=== PATIENT | male | born 1960 | race Caucasian/White ===

== ENCOUNTER → 2016-05-16 | Outpatient (CLI) | payer OTHER ==
[~2016-05-16] MED LIST: AMOX875T PO; ASPI81TA28 PO; ATOR-26 PO; ATR25 PO; BUPR150T5 PO; CITA40TA4 PO; LPR25 PO; PRED20TA PO; SPRIN/30 INH
[2016-05-16 12:24] LABS: HEMATOCRIT 47.1 % (42-52); MEAN CELL VOLUME 88.9 fL (80-100); MEAN CORPUSCULAR HEMOGLOBIN 30.6 pg (25-34); MEAN CORPUSCULAR HGB CONC 34.4 g/dl (32-36); MEAN PLATELET VOLUME 11.7 fL (7.4-10.4); PLATELET COUNT 161 K/uL (130-400); WHITE BLOOD COUNT 5.12 K/uL (4.8-10.8)
[2016-05-16 12:43] LABS: ALB/GLOB RATIO 1.1 (0.9-2); ALT/SGPT 40 U/L (12-78); AST/SGOT 23 U/L (15-37); BLOOD UREA NITROGEN 13 mg/dl (7-18); BUN/CREATININE RATIO 13.1 (10-20); CALCIUM 8.9 mg/dl (8.5-10.1); CARBON DIOXIDE 29 mmol/L (21-32); CHLORIDE 103 mmol/L (98-107); CHOLESTEROL 118 mg/dl (0-200); GLUCOSE 91 mg/dl (70-99); POTASSIUM 4.6 mmol/L (3.5-5.1); SODIUM 139 mmol/L (136-145); TRIGLYCERIDES 81 mg/dl (0-150); VERY LOW DENSITY LIPOPROT CALC 16 mg/dl
[2016-05-16 12:47] LABS: ALKALINE PHOSPHATASE 80 U/L (45-117); CHOLESTEROL/HDL RATIO 2.5; HDL CHOLESTEROL 48 mg/dl; LDL CHOLESTEROL CALCULATED 54 mg/dl; PROSTATE SPECIFIC ANTIGEN 0.858 ng/ml (0.000-4.000)
== END | disposition home or self-care (01) ==
LOC: C.LABBFT 10:09
PROVIDERS: ATTEND Internal Medicine
DX: I25.10 Atherosclerotic heart disease of native coronary artery without angina pectoris (principal); Z12.5 Encounter for screening for malignant neoplasm of prostate

== ENCOUNTER → 2016-06-03 | Outpatient (CLI) | payer OTHER ==
--- NOTE | 2016-06-04 07:17 | MYOCARDIAL PERFUSION SCAN ---
NUCLEAR STRESS TEST STUDY REQUESTED BY: Kev Parra MD PRIMARY CARE PHYSICIAN: Braeden Goff III MD REASON FOR CONSULTATION: Chest tightness, nocturnal dyspnea. TITLE OF STUDY: One-day nuclear medicine technetium-99m Cardiolite myocardial perfusion scan. STRESS EK. Baseline EKG shows sinus bradycardia at a rate of 55 with an incomplete right bundle branch block, but no significant ST abnormalities. 2. The patient exercised for 5 minutes and 6 seconds achieving 7 mets and 73% maximum predicted heart rate. There was normal hemodynamic response to exercise. No significant ST abnormalities or ST segment changes were noted with exercise. TECHNIQUE: For the stress portion of the study, 31.8 mCi of technetium-99m Cardiolite IV was injected at 9:35 a.m. on 06/03/2016. Fifteen minutes following the injection, the imaging of the heart was performed in multiple projections. For the rest portion of the study, 10.6 mCi of technetium-99m Cardiolite was injected IV at 7:40 a.m. One hour following injection, imaging of the heart was performed in the same projections. FINDINGS: Raw images were reviewed in detail. This is a good technical quality study. There was minimal diaphragmatic attenuation noted on both stress and rest as well as minimal gut uptake impacting the inferior border of the heart. No significant extracardiac pathologic uptake. The short axis, horizontal long axis, vertical long axis images were reviewed in detail. There was a small mild reversible perfusion defect involving the apical anterior and apical segments. Summed difference score of 3. In addition, there was a small severe fixed perfusion defect involving the inferior basilar segment. There is minimal significant reversibility. LV size was normal with an end-diastolic volume of 105. A calculated ejection fraction was 61% with mild to moderate hypokinesis involving the basilar inferior wall. IMPRESSION: 1. Small mild reversible perfusion defect involving the anterior apical and apical segments consistent with potential left anterior descending distribution ischemia. Summed difference score of 3 suggesting low extent of myocardium at risk. 2. Small severe fixed perfusion defect involving the inferior base consistent with prior right coronary artery infarct. 3. Normal left ventricular size and function with an ejection fraction of 61% and a [id number] hypokinesis involving the inferior wall at the base. 4. Nondiagnostic exercise EKG due to inability to achieve target heart rate. The patient achieved 73% of maximum predicted heart rate. 5. Below average functional capacity exercised 5 minutes, achieving 7 mets. Exercise stopped due to fatigue kind of leg heavy. 6. No prior studies for comparison. MTDD
== END | disposition home or self-care (01) ==
LOC: C.NUCL 06:53
PROVIDERS: ATTEND Internal Medicine Interventional Cardiology
DX: R07.89 Other chest pain (principal)

== ENCOUNTER → 2016-06-13 | Day surgery (SDC) | payer OTHER ==
[~2016-06-13] VITALS: Ht 172.7 cm; Wt 84.0 kg
[~2016-06-13] MED LIST changes: +DiphenhydrAMINE HCL 50 MG/ML VIAL ONE; +FENTANYL CITRATE INJ 50 MCG/1 ML 2 ML VIAL ONE; +HEPARIN SOD (PORCINE) 1000 UNIT/ML 10 ML VIAL ONE; +METHYLPREDNISOLONE 125 MG VIAL ONE; +MIDAZOLAM HCL 1 MG/ML 2ML VIAL ONE; +NITROGLYCERIN/D5W 100MCG/ML 20ML SYR ONE; +NiCARDipine HCL INJ 2.5 MG/ML 10 ML AMP ONE
[2016-06-13 09:12] VITALS: BP 109/73; PULSE 54; TEMP 36.5; O2SAT 98; Ht 172.7 cm; Wt 84.0 kg
--- NOTE | 2016-06-13 12:52 | History and Physical ---
History & Physical Date Jun 13, 2016. History of Present Illness The patient is a 56 year old male with complaints of intermittent atypical chest discomfort and nocturnal diaphoresis, shortness of breath. Patient had a recent stress test suggestive of possible distal LAD ischemia and presented today for cardiac cath. Prior history of Inferior STEMI in 2012 treated with BMS to RCA. Past Medical/Surgical History Medical Problems: (1) Chronic congestive heart failure (2) Chronic obstructive lung disease (3) Myocardial infarct (4) Pneumonia Surgical Problems: (1) H/O angioplasty (2) Stented coronary artery Additional History Hepatic Disease: No Endocrine Disorder: No Kidney Disease: No Hypertension: Yes Heart Disease: Yes Bleeding Tendencies: No Infectious Diseases: No Allergies Coded Allergies: Iodinated Diagnostic Agents (Unverified Allergy, Unknown, HIVES, 01/22/15) reports allergy to "IV contrast" Oxycodone (Verified Allergy, Unknown, itchy in past with med, 01/22/15) Home Medications Scheduled Aspirin (Aspirin Ec), 81 MG PO DAILY Atorvastatin (Lipitor), 80 MG PO DAILY Citalopram (Citalopram Hydrobromide), 40 MG PO DAILY Metoprolol Tartrate (Lopressor), 12.5 MG PO BID Scheduled PRN Tiotropium Given (Spiriva Handihaler), 1 CAP INH DAILY PRN for Shortness of Breath Physical Examination Skin: warm/dry Eyes: normal inspection ENT: normal ENT inspection Neck: supple Respiratory/Chest: lungs clear Cardiovascular: regular rate, rhythm, no edema, no murmur Abdomen / GI: normal bowel sounds Extremities: normal inspection Neurologic/Psych: no motor/sensory deficits Diagnosis Positive stress test Atypical chest pain CAD s/p Inferior STEMI with prior BMS to RCA ASA Classification: ASA Class II Plan of Treatment Proceed to cardiac cath
--- NOTE | 2016-06-13 12:53 | Procedure Note ---
Pre-Mod Sedation Assessment General Date of Moderate Sedation: Jun 13, 2016. Vital Signs: Vital Signs Past 12 Hours Date Time Temp Pulse Resp B/P Pulse Ox O2 Delivery O2 Flow Rate FiO2 06/13/16 12:40 62 16 121/82 99 Nasal Cannula 3 06/13/16 09:12 36.5 54 20 109/73 98 Room Air Review Cardiovascular: regular rate, rhythm, no edema, no gallop, no JVD Abdomen: normal bowel sounds, non tender, soft Lungs: chest non-tender, lungs clear, normal breath sounds Airway Class: II Pre-Sedation Airway Assessment Oral Cavity: WNL Able to Visualize Vocal Cords: Yes Short Thick Neck: No Hx of Sleep Apnea: No Smoking Status: Current Every Day Smoker Mallampati Classification: Class II ASA Classification: Class II Procedure Planning Contraindications-for Mod Sed: None Yes Notes The planned sedation has been discussed with the patient and consent obtained. I have identified the patient, determined the appropriateness of sedation and have assessed the patient immediately prior to the procedure. All medicine(s) and interventions are by my order.
--- NOTE | 2016-06-13 12:57 | Procedure Note ---
Post-Mod Sedation Assessment General Date of Moderate Sedation Jun 13, 2016. Vital Signs: Vital Signs Past 12 Hours Date Time Temp Pulse Resp B/P Pulse Ox O2 Delivery O2 Flow Rate FiO2 06/13/16 12:40 62 16 121/82 99 Nasal Cannula 3 06/13/16 09:12 36.5 54 20 109/73 98 Room Air Review - Discharge Criteria Vital Signs Stable: Yes Alert/Oriented/Conversant: Yes Returned to Baseline Mental St: Yes Nausea Absent/Minimal: Yes Pain/Discomfort/Absent/Minimal: Yes Normal/Baseline Respirations: Yes Active Bleeding?: No Pt Received D/C Instructions: N/A Prescriptions Given: Transmitted Specific Proced. D/C Criteria Distal Pulses Present (Cardiac: Yes Groin site assessed-Card Cath: Yes Voided Prior To Discharge: N/A Discharged Patients Adult Escort/Transportation: Yes
--- NOTE | 2016-06-13 15:16 | Discharge Instructions ---
Discharge Instructions Procedure Procedure Date: Jun 13, 2016. Reason for Visit: Abnormal Stress Test. Discharge Discharge Date: Jun 13, 2016. Discharge Diagnosis: Mild coronary artery disease Last Recorded Wt (Kilograms): 84 Instructions Activity Recommendations: limitations as noted below Allergies: Coded Allergies: Iodinated Diagnostic Agents (Unverified Allergy, Unknown, HIVES, 01/22/15) reports allergy to "IV contrast" Oxycodone (Verified Allergy, Unknown, itchy in past with med, 01/22/15) Provider Instructions ACTIVITY RECOMMENDATIONS: It is common to feel weak and fatigue for a few days. * Do not drive or operate any motorized equipment for the next three days. * Limit stair usage (2 or 3 trips a day only) for the next three days. * Do not lift anything heavier than 10 pounds for the next three days. * Do not engage in vigorous exercise or any sports for the next five days. * You may shower the day after your procedure, but do not immerse the area for three days. Cleanse the site gently with soap and water. SPECIAL CARE INSTRUCTIONS: * You may replace the pressure dressing or band-aid the morning after the procedure. * After your procedure, it is normal to have a small bruise or small lump at the site. Examine your site daily for any change in the bruise or lump, redness, swelling, drainage or numbness. Notify your doctor if any change. BLEEDING: * If there is a small amount of bleeding at the site, lie down and apply firm pressure with a clean cloth for ten minutes. When the bleeding stops, lie quietly keeping the procedure limb straight for six hours. Notify your doctor as soon as possible. * If the bleeding does not stop after ten minutes or if there is a large amount of bleeding or spurting, call 911 immediately. Continue to lie down and hold firm pressure until help arrives. SKIN IRRITATION: * You may experience some redness and/or swelling in the area where radiation was administered. If any skin irritation occurs, please contact your family physician. FOLLOW UP VISIT: Keep any scheduled doctor appointments. Follow Up Follow-up with: Follow-up with Dr. Goff within the next month. Follow-up with Dr. Parra in 6 months or sooner if new issues arise. Cony Crawford Recommendations: Call your doctor if: * Temperature above 101 degrees * Pain not relieved by pain medicine ordered * There is increased drainage or redness from any incision * You have any unanswered questions or concerns. Your Doctors Instructions noted above were prepared by provider Navin Parra. Patient Signature Section: Patient Instructions Signature Page Benjamín Collier Patient (or Guardian) Signature/Date: I have read and understand the instructions given to me by my caregivers. Caregiver/RN/Doctor Signature/Date: The above-named patient and/or guardian has received patient instructions on this date. + Original Patient Signature Page (only) stays with chart. Please make copy for patient.
[2016-06-13 15:45] VITALS: BP 122/74; PULSE 53; O2SAT 98
--- NOTE | 2016-06-13 22:28 | Cardiac Catheterization ---
Procedure Note Procedure Date Jun 13, 2016. Pre-Procedure Diagnosis Angina, Positive Stress Test AUC Score 7 Post-Procedure Diagnosis Mild CAD, Moderate CAD, Normal Intracardiac Pressures Procedure(s) Performed Coronary Angiography, Left Heart Cath Curtain Cutter Hand Dr. Parra Stock Counter(s) Piero Estimated Blood Loss 15 Medication(s) Fentanyl, Heparin, Nitroglycerin, Versed, Lidocaine 1% Summary of Findings Indication: Atypical angina, Positive stress test Access: 5Fr right radial artery Catheters: [place] Baths, Pigtail Findings: LM - Angiographically normal LAD - Moderate caliber vessel with luminal irregularities. Vessel wraps around apex. Circumflex - Non-dominant, 40% focal stenosis in proximal segment, 40-50% mid segment stenosis at take off of large OM2. RCA - Dominant, mild proximal disease, mid RCA stent with 40-50% in-stent restenosis at distal edge. Luminal irregularities in distal RCA, PDA, PLBs. LVEDP - 9 Arterial Closure: TR Band Summary: 1. Mild to moderate nonobstructive coronary artery disease - 40-50% stenosis in proximal, mid circumflex - 40-50% mid RCA in-stent restenosis 2. False positive stress test 3. Normal intracardiac filling pressures Recommendations: Recover in holding area and discharge to home later today Continue current CAD secondary prevention meds Follow-up with Dr. Goff for ongoing workup of atypical chest pain/nighttime symptoms Stop Smoking Hemodynamics Rest Ao: - Final Ao: 112/42 LV: 115/9 Recommendations Medical therapy and/or Counseling Specimens None Radiation Exposure (mGy) 223 Contrast (mls) 65 Fluids (cc crystalloids) 53 Drains None Anesthesia Moderate Procedural Complication(s) None Disposition Front Services Agent Holding/Recovery ACC Data Cardiac Status Clinical evaluation leading to the procedure CAD Presntation: Positive Stress Test Anginal Classification: CCS III Heart Failure: No, NYHA Class: CCS I Cardiogenic Shock w/in 24Hrs: No Cardiac Arrest w/in 24Hrs: No Imaging studies past 6 months: Yes Standard Exercise Stress Test: No Stress Echocardiogram: No Stress Testing w/SPECT MPI: Yes - Positive Cardiac CTA: No Coronary Anatomy Dominant: Right Left Main (% Stenosis): Normal LAD (% Stenosis): Normal Circumflex (% Stenosis): Proximal, Mid (40-50) R PDA (% Stenosis): Mid Diagnostic Physician's Name: Kev Parra MD Status: Elective Closure Device Percutaneous Entry Location: Radial Closure Device: Radial Band Recommendations: Medical therapy and/or Counseling Intraprocedure Events Significant Dissection: No Perforation: No
== END | disposition home or self-care (01) ==
LOC: C.CATH 07:43
PROVIDERS: ATTEND Internal Medicine Interventional Cardiology
DX: I25.119 Atherosclerotic heart disease of native coronary artery with unspecified angina pectoris (principal); I25.2 Old myocardial infarction; I50.9 Heart failure, unspecified; J44.9 Chronic obstructive pulmonary disease, unspecified; Z95.5 Presence of coronary angioplasty implant and graft; Z91.041 Radiographic dye allergy status

== ENCOUNTER 2017-01-27 20:49 | Emergency (ER) | payer OTHER ==
[~2017-01-27] VITALS: Ht 172.7 cm; Wt 82.2 kg
[~2017-01-27 20:49] MED LIST changes: -AMOX875T PO; -ATR25 PO; -BUPR150T5 PO; -DiphenhydrAMINE HCL 50 MG/ML VIAL ONE; -FENTANYL CITRATE INJ 50 MCG/1 ML 2 ML VIAL ONE; -HEPARIN SOD (PORCINE) 1000 UNIT/ML 10 ML VIAL ONE; -METHYLPREDNISOLONE 125 MG VIAL ONE; -MIDAZOLAM HCL 1 MG/ML 2ML VIAL ONE; -NITROGLYCERIN/D5W 100MCG/ML 20ML SYR ONE; -NiCARDipine HCL INJ 2.5 MG/ML 10 ML AMP ONE; -PRED20TA PO
[2017-01-27 20:55] VITALS: TEMP 36.9; Ht 172.7 cm; Wt 82.2 kg
[2017-01-27] MEDS ORDERED: KETOROLAC TROMETHAMINE 30 MG/ML VIAL IV STA (21:35)
[2017-01-27] MEDS ORDERED: SODIUM CHLORIDE 0.9% 1000ML 1,000 ML IV STA (21:35)
[2017-01-27] MEDS ORDERED: PROCHLORPERAZINE 5 MG/ML 2 ML VIAL IV STA (21:35)
[2017-01-27] MEDS ORDERED: ALBUT/IPRATROP 3MG/0.5MG NEB 3 ML VIAL INH STA (21:35)
[2017-01-27] MEDS ORDERED: DiphenhydrAMINE HCL 50 MG/ML VIAL IV STA (21:35)
--- NOTE | 2017-01-27 21:38 | EMERGENCY ROOM VISIT NOTE ---
History Report prepared by Vinay: Júnior Moulton Under the Supervision of: Dr. Fuentes Garcia M.D. First contact with patient: 21:25 Chief Complaint: CONGESTION Stated Complaint: SINUS,BAD BENOIT,LOW BACK HURT Nursing Triage Summary: nasal congestion , headache and back pain History of Present Illness The patient is a 56 year old male who presents to the Emergency Room with complaints of sinus congestion that began 1 week ago. He has a history of sinus problems since he had "windows" placed in his sinuses when he was 19 years old. The procedure did not help. He has a headache, cough, and back pain. He denies any fevers or neck pain. 1 week ago, he started Levaquin which finished yesterday. His back pain was secondary to lifting his sister in law. Source of History: patient Onset: 1 week ago Position: head (Sinuses) Symptom Intensity: moderate Quality: pressure Timing: constant Associated Symptoms: + headache, + cough, + back pain, No fevers, No neck pain Review of Systems See HPI for pertinent positives & negatives. A total of 10 systems reviewed and were otherwise negative. Past Medical & Surgical Medical Problems: (1) Chronic congestive heart failure (2) Chronic obstructive lung disease (3) Myocardial infarct (4) Pneumonia Surgical Problems: (1) H/O angioplasty (2) Stented coronary artery Family History Diabetes mellitus Heart disease Hypertension Lung disease Social History Smoking Status: Never Smoker Alcohol Use: occasionally Drug Use: none Marital Status: Housing Status: lives with family Occupation Status: employed Current/Historical Medications Scheduled Amoxicillin & Pot Clavulanate (Augmentin 875-125 mg), 1 TAB PO BID Aspirin (Aspirin Ec), 81 MG PO DAILY Atorvastatin (Lipitor), 80 MG PO DAILY Bupropion Hcl (Bupropion Hcl Xl), 150 MG PO DAILY Citalopram (Citalopram Hydrobromide), 40 MG PO DAILY Metoprolol Tartrate (Lopressor), 12.5 MG PO BID Scheduled PRN Hydroxyzine HCl (Hydroxyzine HCl), 25 MG PO TID PRN for Anxiety Allergies Coded Allergies: Iodinated Diagnostic Agents (Unverified Allergy, Unknown, HIVES, 01/22/15) reports allergy to "IV contrast" Oxycodone (Verified Allergy, Unknown, itchy in past with med, 01/22/15) Physical Exam Vital Signs Date Time Temp Pulse Resp B/P (MAP) Pulse Ox O2 Delivery O2 Flow Rate FiO2 01/27/17 23:52 76 18 124/78 98 01/27/17 22:19 Room Air 01/27/17 20:58 Room Air 01/27/17 20:55 36.9 71 16 136/81 95 Room Air Physical Exam GENERAL: Patient is a healthy-appearing well-nourished male HEAD: Normocephalic atraumatic EYES: Ocular movements intact pupils equal and react to light OROPHARYNX mucous membranes are moist no exudates present no erythema or edema present NECK: Supple no nuchal rigidity. No evidence of meningitis or encephalitis on exam. CHEST: Good equal expansion LUNGS: Clear and equal to auscultation CARDIAC: Normal S1 and S2 ABDOMEN: Soft nontender no guarding BACK: No CVA tenderness EXTREMITIES: No pain upon palpation normal muscle strength in all groups no clubbing cyanosis or edema NEURO: Patient is following commands and answering questions appropriately. Alert and oriented x3 Cranial Nerves 2-12 grossly intact Medical Decision & Procedures ER Provider Diagnostic Interpretation: Radiology results as stated below per my review and radiologist interpretation: CT SCAN OF THE PARANASAL SINUSES CLINICAL HISTORY: Sinus congestion. COMPARISON STUDY: CT scan of the paranasal sinuses dated 07/21/2015. TECHNIQUE: High-resolution CT scan of the paranasal sinuses is performed. Images are reviewed in the axial, sagittal, and coronal planes. IV contrast was not administered for this examination. CT DOSE: 610.84 mGy.cm FINDINGS: Maxillary antra: There is trace dependent mucosal thickening within the maxillary antra bilaterally. Anterior ethmoid sinuses: Mild to moderate mucosal thickening is present bilaterally, left greater than right. Posterior ethmoid sinuses: Mild mucosal thickening is sacrum bilaterally. Sphenoid sinuses: Trace mucosal thickening is seen bilaterally, left greater than right. Frontal sinuses: Trace mucosal thickening is seen bilaterally. Ostiomeatal complexes: Patent bilaterally, with narrowing on the right secondary to mucosal thickening. Frontoethmoidal and sphenoethmoidal recesses: The right sphenoethmoidal recess is patent but narrowed by mucosal thickening. The left sphenoethmoidal recess appears occluded. The frontoethmoidal recesses are clear bilaterally. Carotid arteries: The carotid arteries are covered. There are bilateral septal attachments. The right carotid artery is protuberant. Ethmoid roofs: The ethmoid roofs are symmetric. Nasal turbinates: There is kira bullosa of the middle nasal turbinates. Nasal septum: There is mild leftward deviation of the bony nasal septum with a small spur. Optic nerves: Covered. Orbits: The bony orbits are intact. Orbital contents are normal in appearance. Calvarium: The imaged calvarium is normal in appearance Mastoid air cells: Well pneumatized. Brain parenchyma: Partially visualized brain parenchyma is within normal limits. IMPRESSION: Mild paranasal sinus disease as above, similar to the 07/21/2015 examination. Electronically signed by: Chente Quevedo M.D. 01/27/2017 10:29 PM Dictated Date/Time: 01/27/2017 10:26 PM LUMBAR SPINE 5 VIEWS CLINICAL HISTORY: Low back pain. FINDINGS: 5 views of the lumbar spine are 12/27/2007. The skeletal structures are well mineralized. There is no radiographic evidence of fracture or malalignment. Vertebral body height and alignment are maintained. The transverse and spinous processes are intact. There is no evidence of spondylolysis. Small anterior osteophytes are seen throughout. The intervertebral disc spaces are well-maintained. The visualized bony pelvis appears intact. There is a nonobstructed abdominal bowel gas pattern. There is mild atherosclerotic calcification of the abdominal aorta. IMPRESSION: No acute bony abnormality is seen involving the lumbosacral spine. Electronically signed by: Chente Quevedo M.D. 01/27/2017 10:47 PM Dictated Date/Time: 01/27/2017 10:46 PM SINGLE VIEW CHEST CLINICAL HISTORY: Chest congestion. Back pain. FINDINGS: A PA chest radiograph is compared to study dated 04/17/2016. Correlation is made with chest CT dated 10/11/2013 The cardiomediastinal silhouette is unremarkable. The lungs and pleural spaces are clear. No pneumothorax is seen. The bony thorax is grossly intact. IMPRESSION: No active disease in the chest. Electronically signed by: Chente Quevedo M.D. 01/27/2017 10:48 PM Dictated Date/Time: 01/27/2017 10:47 PM Laboratory Results 01/27/17 22:10 Red Blood Count 5.07, Mean Corpuscular Volume 88.2, Mean Corpuscular Hemoglobin 31.2, Mean Corpuscular Hemoglobin Concent 35.3, Mean Platelet Volume 10.9, Neutrophils (%) (Auto) 50.3, Lymphocytes (%) (Auto) 35.8, Monocytes (%) (Auto) 9.2, Eosinophils (%) (Auto) 4.2, Basophils (%) (Auto) 0.4, Neutrophils # (Auto) 3.83, Lymphocytes # (Auto) 2.73, Monocytes # (Auto) 0.70, Eosinophils # (Auto) 0.32, Basophils # (Auto) 0.03 01/27/17 22:10 Test 01/27/17 22:10 White Blood Count 7.62 K/uL (4.8-10.8) Red Blood Count 5.07 M/uL (4.7-6.1) Hemoglobin 15.8 g/dL (14.0-18.0) Hematocrit 44.7 % (42-52) Mean Corpuscular Volume 88.2 fL (80-100) Mean Corpuscular Hemoglobin 31.2 pg (25-34) Mean Corpuscular Hemoglobin Concent 35.3 g/dl (32-36) Platelet Count 161 K/uL (130-400) Mean Platelet Volume 10.9 fL (7.4-10.4) Neutrophils (%) (Auto) 50.3 % Lymphocytes (%) (Auto) 35.8 % Monocytes (%) (Auto) 9.2 % Eosinophils (%) (Auto) 4.2 % Basophils (%) (Auto) 0.4 % Neutrophils # (Auto) 3.83 K/uL (1.4-6.5) Lymphocytes # (Auto) 2.73 K/uL (1.2-3.4) Monocytes # (Auto) 0.70 K/uL (0.11-0.59) Eosinophils # (Auto) 0.32 K/uL (0-0.5) Basophils # (Auto) 0.03 K/uL (0-0.2) RDW Standard Deviation 44.6 fL (36.4-46.3) RDW Coefficient of Variation 13.8 % (11.5-14.5) Immature Granulocyte % (Auto) 0.1 % Immature Granulocyte # (Auto) 0.01 K/uL (0.00-0.02) Anion Gap 8.0 mmol/L (3-11) Est Creatinine Clear Calc Drug Dose 78.4 ml/min Estimated GFR () 86.5 Estimated GFR (Non- 74.6 BUN/Creatinine Ratio 15.8 (10-20) Calcium Level 9.2 mg/dl (8.5-10.1) Total Bilirubin 0.3 mg/dl (0.2-1) Direct Bilirubin < 0.1 mg/dl (0-0.2) Aspartate Amino Transf (AST/SGOT) 15 U/L (15-37) Alanine Aminotransferase (ALT/SGPT) 15 U/L (12-78) Alkaline Phosphatase 63 U/L (45-117) Total Protein 7.1 gm/dl (6.4-8.2) Albumin 3.6 gm/dl (3.4-5.0) Labs reviewed by ED physician. Medications Administered Medications (Trade) Dose Ordered Sig/Garima Route Start Time Stop Time Status Last Admin Dose Admin Amoxicillin/ Clavulanate Potassium (Augmentin Tab) 875 mg ONE ONCE PO 01/27/17 21:45 01/27/17 21:46 DC 01/27/17 22:08 875 MG Sodium Chloride 1,000 ml @ 999 mls/hr Q1H1M STAT IV 01/27/17 21:35 01/27/17 22:35 DC 01/27/17 22:09 999 MLS/HR Ketorolac Tromethamine (Toradol Inj) 30 mg NOW STAT IV 01/27/17 21:35 01/27/17 21:39 DC 01/27/17 22:09 30 MG Prochlorperazine Edisylate (Compazine Inj) 10 mg NOW STAT IV 01/27/17 21:35 01/27/17 21:39 DC 01/27/17 22:08 10 MG Diphenhydramine HCl (Benadryl Inj) 25 mg NOW STAT IV 01/27/17 21:35 01/27/17 21:40 DC 01/27/17 22:09 25 MG Sodium Chloride ([place] Nasal [place]) 2 sprays NOW ONCE NA 01/27/17 23:45 01/27/17 23:46 DC 01/27/17 23:51 2 SPRAYS Albuterol (Ventolin Hfa Inhaler) 2 puffs NOW STAT INH 01/27/17 23:37 01/27/17 23:38 DC 01/27/17 23:51 2 PUFFS Dexamethasone Sodium Phosphate (Decadron Inj) 10 mg NOW STAT IV 01/27/17 23:37 01/27/17 23:38 DC 01/27/17 23:51 10 MG ED Course 2124: Past medical records reviewed. The patient was evaluated in room A2. A complete history and physical examination was performed. 2134: Ordered Benadryl Inj 25 mg IV, Compazine Inj 10 mg IV, Toradol Inj 30 mg IV, Sodium Chloride 1000 ml @ 999 mls/hr IV, DuoNeb 3 ml INH 2144: Ordered Augmentin Tab 875 mg PO 2336: Ordered Decadron Inj 10 mg IV, Albuterol 2 puffs INH 2344: Ordered Sodium Chloride 2 sprays NA 0000: Upon reexamination the patient is resting. I discussed results and treatment plan with the patient. He verbalizes agreement and understanding. The patient is ready for discharge. Medical Decision Differential diagnosis: Etiologies such as viral syndrome, otitis, pharyngitis, pneumonia, influenza, meningitis, urinary tract infection, sepsis, bacteremia, as well as others were entertained. This is a 56-year-old male who presents emergency department complaining of sinusitis-like symptoms. The patient has no evidence of meningitis or encephalitis on examination. He recently finished Levaquin for a sinus infection however the patient still is feeling pressure. The patient was sent for a CAT scan of the sinuses which was concerning for mild sinus disease. He is given breathing treatments in the emergency department as well as [place] nasal spray. I cautioned the patient to stop smoking. I will continue him on Augmentin at home. I will note that the patient does not have an elevation in his white blood count cell count. He was also given an inhaler. I recommended follow-up with his primary care physician. Medication Reconcilliation Current Medication List: was personally reviewed by me Blood Pressure Screening Patient's blood pressure: Normal blood pressure Blood pressure disposition: Did not require urgent referral Impression Primary Impression: Sinusitis Scribe Attestation The scribe's documentation has been prepared under my direction and personally reviewed by me in its entirety. I confirm that the note above accurately reflects all work, treatment, procedures, and medical decision making performed by me. Departure Information Dispostion Home / Self-Care Prescriptions Amoxicillin & Pot Clavulanate (Augmentin 875-125 mg) 1 Tab Tab 1 TAB PO BID for 10 Days, #20 TAB Prov: Fuentes Garcia MD 01/27/17 Referrals Braeden Goff M.D. (PCP) Glenn Jean Baptiste MD Forms HOME CARE DOCUMENTATION FORM, IMPORTANT VISIT INFORMATION, School Instructions, Work Instructions Patient Instructions ED Sinusitis Abx Tx, [facility] Additional Instructions Follow up with Dr Jean Baptiste's office for continued sinusitis Take 600 mg Ibuprofen every 6 hours Take 1000 mg Tylenol every 6 hours Use inhaler twice every 6 hours You have been examined and treated today on an emergency basis only. This is not a substitute for, or an effort to provide, complete comprehensive medical care. It is impossible to recognize and treat all injuries or illnesses in a single emergency department visit. It is therefore important that you follow up closely with Dr Goff. Call as soon as possible for an appointment. Thank you for your time and consideration. I look forward to speaking with you again soon. Please don't hesitate to call us if you have any questions. Problem Qualifiers Primary Impression: Sinusitis Sinusitis location: unspecified location Chronicity: unspecified Qualified Codes: J32.9 - Chronic sinusitis, unspecified
[2017-01-27] MEDS ORDERED: AMOXICILLIN/CLAVULANATE TAB 875 MG TAB PO ONE (21:45)
[2017-01-27 22:19] LABS: BASO % 0.4 %; BASO ABS # 0.03 K/uL (0-0.2); COMPLETE YES; EOS % 4.2 %; HEMATOCRIT 44.7 % (42-52); IG% 0.1 %; LYMPH % 35.8 %; LYMPH ABS # 2.73 K/uL (1.2-3.4); MEAN CELL VOLUME 88.2 fL (80-100); MEAN CORPUSCULAR HEMOGLOBIN 31.2 pg (25-34); MEAN CORPUSCULAR HGB CONC 35.3 g/dl (32-36); MEAN PLATELET VOLUME 10.9 fL (7.4-10.4); MONO % 9.2 %; NEUT % 50.3 %; PLATELET COUNT 161 K/uL (130-400); RED BLOOD COUNT 5.07 M/uL (4.7-6.1); WHITE BLOOD COUNT 7.62 K/uL (4.8-10.8)
--- NOTE | 2017-01-27 22:30 | DIAGNOSTIC IMAGING REPORT ---
CT SCAN OF THE PARANASAL SINUSES CLINICAL HISTORY: Sinus congestion. COMPARISON STUDY: CT scan of the paranasal sinuses dated 07/21/2015. TECHNIQUE: High-resolution CT scan of the paranasal sinuses is performed. Images are reviewed in the axial, sagittal, and coronal planes. IV contrast was not administered for this examination. CT DOSE: 610.84 mGy.cm FINDINGS: Maxillary antra: There is trace dependent mucosal thickening within the maxillary antra bilaterally. Anterior ethmoid sinuses: Mild to moderate mucosal thickening is present bilaterally, left greater than right. Posterior ethmoid sinuses: Mild mucosal thickening is sacrum bilaterally. Sphenoid sinuses: Trace mucosal thickening is seen bilaterally, left greater than right. Frontal sinuses: Trace mucosal thickening is seen bilaterally. Ostiomeatal complexes: Patent bilaterally, with narrowing on the right secondary to mucosal thickening. Frontoethmoidal and sphenoethmoidal recesses: The right sphenoethmoidal recess is patent but narrowed by mucosal thickening. The left sphenoethmoidal recess appears occluded. The frontoethmoidal recesses are clear bilaterally. Carotid arteries: The carotid arteries are covered. There are bilateral septal attachments. The right carotid artery is protuberant. Ethmoid roofs: The ethmoid roofs are symmetric. Nasal turbinates: There is kira bullosa of the middle nasal turbinates. Nasal septum: There is mild leftward deviation of the bony nasal septum with a small spur. Optic nerves: Covered. Orbits: The bony orbits are intact. Orbital contents are normal in appearance. Calvarium: The imaged calvarium is normal in appearance Mastoid air cells: Well pneumatized. Brain parenchyma: Partially visualized brain parenchyma is within normal limits. IMPRESSION: Mild paranasal sinus disease as above, similar to the 07/21/2015 examination. Electronically signed by: Chente Quevedo M.D. 01/27/2017 10:29 PM Dictated Date/Time: 01/27/2017 10:26 PM
[2017-01-27] MEDS ORDERED: BUPR150T5 PO (22:32)
[2017-01-27] MEDS ORDERED: ATR25 PO (22:33)
[2017-01-27 22:37] LABS: ALT/SGPT 15 U/L (12-78); BLOOD UREA NITROGEN 17 mg/dl (7-18); BUN/CREATININE RATIO 15.8 (10-20); CALCIUM 9.2 mg/dl (8.5-10.1); CARBON DIOXIDE 26 mmol/L (21-32); CHLORIDE 106 mmol/L (98-107); GLUCOSE 84 mg/dl (70-99); POTASSIUM 3.7 mmol/L (3.5-5.1); SODIUM 140 mmol/L (136-145)
[2017-01-27 22:40] LABS: ALKALINE PHOSPHATASE 63 U/L (45-117); AST/SGOT 15 U/L (15-37)
--- NOTE | 2017-01-27 22:49 | DIAGNOSTIC IMAGING REPORT ---
LUMBAR SPINE 5 VIEWS CLINICAL HISTORY: Low back pain. FINDINGS: 5 views of the lumbar spine are 12/27/2007. The skeletal structures are well mineralized. There is no radiographic evidence of fracture or malalignment. Vertebral body height and alignment are maintained. The transverse and spinous processes are intact. There is no evidence of spondylolysis. Small anterior osteophytes are seen throughout. The intervertebral disc spaces are well-maintained. The visualized bony pelvis appears intact. There is a nonobstructed abdominal bowel gas pattern. There is mild atherosclerotic calcification of the abdominal aorta. IMPRESSION: No acute bony abnormality is seen involving the lumbosacral spine. Electronically signed by: Chente Quevedo M.D. 01/27/2017 10:47 PM Dictated Date/Time: 01/27/2017 10:46 PM
--- NOTE | 2017-01-27 22:50 | DIAGNOSTIC IMAGING REPORT ---
SINGLE VIEW CHEST CLINICAL HISTORY: Chest congestion. Back pain. FINDINGS: A PA chest radiograph is compared to study dated 04/17/2016. Correlation is made with chest CT dated 10/11/2013 The cardiomediastinal silhouette is unremarkable. The lungs and pleural spaces are clear. No pneumothorax is seen. The bony thorax is grossly intact. IMPRESSION: No active disease in the chest. Electronically signed by: Chente Quevedo M.D. 01/27/2017 10:48 PM Dictated Date/Time: 01/27/2017 10:47 PM
[2017-01-27] MEDS ORDERED: DEXAMETHASONE SOD INJ 10 MG/ML VIAL IV STA (23:37)
[2017-01-27] MEDS ORDERED: ALBUTEROL HFA 8 GM INHALER INH STA (23:37)
[2017-01-27] MEDS ORDERED: AMOX875T PO (23:41)
[2017-01-27] MEDS ORDERED: SODIUM CHLORIDE 0.65% NA SOLN 45 ML (OCEAN) ONE (23:45)
[2017-01-27 23:52] VITALS: BP 124/78; PULSE 76; O2SAT 98
== END 2017-01-27 23:53 | disposition home or self-care (01) ==
LOC: C.EDB 20:50 → C.EDA 23:53
DX: J32.9 Chronic sinusitis, unspecified (principal); I50.9 Heart failure, unspecified; J44.9 Chronic obstructive pulmonary disease, unspecified; I25.2 Old myocardial infarction; Z98.61 Coronary angioplasty status; Z79.82 Long term (current) use of aspirin; Z79.899 Other long term (current) drug therapy; Z88.5 Allergy status to narcotic agent; Z91.041 Radiographic dye allergy status; Z83.3 Family history of diabetes mellitus; Z82.49 Family history of ischemic heart disease and other diseases of the circulatory system

== ENCOUNTER → 2017-04-29 | Outpatient (CLI) | payer OTHER ==
[~2017-04-29] MED LIST changes: +ATR25 PO; +ATV/1 SL; +BUPR150T5 PO; +IBUP-1050 PO; +LEVA45AE INH; +LEVO-366 PO; +LEVO500T19 PO; +ONDA4TAB10 SL; +PRED50TA PO; -SPRIN/30 INH
--- NOTE | 2017-04-29 15:28 | DIAGNOSTIC IMAGING REPORT ---
(CHEST) THORAX WITHOUT CLINICAL HISTORY: R06.02 Shortness of mhgtivK51.89 Chronic [id number] COMPARISON STUDY: 10/11/2013 CT DOSE: 592.36 mGycm TECHNIQUE: CT of the thorax was performed from the thoracic inlet to the lung bases. Images are reviewed in the axial, sagittal, and coronal planes. IV contrast was not administered for this examination. A dose lowering technique was utilized adhering to the principles of ALARA. FINDINGS: Thyroid: Imaged portions of the thyroid gland are normal in appearance. Thoracic aorta: The ascending thoracic aorta measures 36 mm in diameter. Heart: There are coronary artery calcifications present. Lungs and pleural spaces: No pleural effusions are visualized. There is no focal pulmonary consolidation. Mediastinum: There is no evidence of pathologic adenopathy Sharon: There is no evidence of pathologic adenopathy given the limitations of a noncontrast study Axilla: There is no evidence of pathologic adenopathy Upper abdomen: Subcentimeter hepatic hypodensities are again evident. These likely represent cysts. Skeletal structures: There are no lytic or blastic osseous lesions. IMPRESSION: 1. No acute intrathoracic findings 2. No evidence of focal pulmonary consolidation. No evidence of pathologic adenopathy. Electronically signed by: Edu Lynn M.D. 04/29/2017 3:27 PM Dictated Date/Time: 04/29/2017 3:23 PM
--- NOTE | 2017-04-29 15:34 | DIAGNOSTIC IMAGING REPORT ---
SINUSES-MAXILLOFACIAL W/O HISTORY: 57 years-old Male J01.90 Acute sinusitis COMPARISON: CT maxillofacial 01/27/2017 TECHNIQUE: Multiple axial CT images of the maxillofacial bones and paranasal sinuses were obtained without contrast. A dose lowering technique was used consistent with the principals of NORAH. FINDINGS: The mastoid air cells and middle ear cavities are clear bilaterally. There is mild mucosal thickening of the sphenoid and right greater than left maxillary sinuses, notably within the inferior right maxillary antrum. There is moderate mucoperiosteal thickening of the ethmoid air cells with mild mucosal thickening of the inferior frontal sinuses. There is mild mucosal thickening of the sphenoethmoidal and frontoethmoidal recesses. There is also mild mucosal thickening of the right maxillary ostiomeatal unit which is patent. The left ostiomeatal unit is patent and within normal limits. There is no significant change of the paranasal sinus disease from comparison study. There is mild leftward bowing and spurring of the nasal septum. Moderate bilateral kira bullosa. No Beena cell identified. The maggy shilpa appears to be within normal limits. No facial bone fracture or dislocation identified. The soft tissues appear unremarkable. The imaged intracranial structures demonstrate no acute abnormality. IMPRESSION: 1. Mild to moderate paranasal sinus disease as above without significant change from comparison study 01/27/2017. 2. Mild leftward bowing and spurring of the nasal septum. 3. Moderate sized bilateral kira bullosa. The above report was generated using voice recognition software. It may contain grammatical, syntax or spelling errors. Electronically signed by: Isaiah Gil M.D. 04/29/2017 3:33 PM Dictated Date/Time: 04/29/2017 3:26 PM
== END | disposition home or self-care (01) ==
LOC: C.CTS 15:00
PROVIDERS: ATTEND Internal Medicine Pulmonary Disease
DX: R06.02 Shortness of breath (principal); R07.89 Other chest pain; J01.90 Acute sinusitis, unspecified; J34.89 Other specified disorders of nose and nasal sinuses

== ENCOUNTER → 2017-05-07 | Outpatient (CLI) | payer OTHER ==
[~2017-05-07] MED LIST changes: -ATV/1 SL; -IBUP-1050 PO; -LEVA45AE INH; -LEVO-366 PO; -LEVO500T19 PO; -ONDA4TAB10 SL; -PRED50TA PO
[2017-05-07 15:53] LABS: BASO % 0.3 %; BASO ABS # 0.02 K/uL (0-0.2); EOS % 3.3 %; HEMATOCRIT 47.2 % (42-52); HEMOGLOBIN 16.8 g/dL (14.0-18.0); IG# 0.01 K/uL (0.00-0.02); LYMPH % 43.9 %; LYMPH ABS # 2.64 K/uL (1.2-3.4); MEAN CELL VOLUME 88.4 fL (80-100); MEAN CORPUSCULAR HEMOGLOBIN 31.5 pg (25-34); MEAN CORPUSCULAR HGB CONC 35.6 g/dl (32-36); MEAN PLATELET VOLUME 11.4 fL (7.4-10.4); MONO % 9.1 %; MONO ABS # 0.55 K/uL (0.11-0.59); NEUT % 43.2 %; PLATELET COUNT 186 K/uL (130-400); RED CELL DISTRIBUTION WIDTH CV 13.6 % (11.5-14.5); RED CELL DISTRIBUTION WIDTH SD 44.3 fL (36.4-46.3); WHITE BLOOD COUNT 6.02 K/uL (4.8-10.8)
[2017-05-07 16:03] LABS: PTT PATIENT 26.1 SECONDS (21.0-31.0)
[2017-05-07 16:13] LABS: ALBUMIN 3.8 gm/dl (3.4-5.0); BLOOD UREA NITROGEN 19 mg/dl (7-18); CALCIUM 8.9 mg/dl (8.5-10.1); CARBON DIOXIDE 29 mmol/L (21-32); CREATININE 1.11 mg/dl (0.60-1.40); GLUCOSE 69 mg/dl (70-99); POTASSIUM 3.8 mmol/L (3.5-5.1); SODIUM 136 mmol/L (136-145)
[2017-05-07 16:17] LABS: ALKALINE PHOSPHATASE 58 U/L (45-117); ALT/SGPT 17 U/L (12-78); AST/SGOT 12 U/L (15-37); TOTAL PROTEIN 7.2 gm/dl (6.4-8.2)
== END | disposition home or self-care (01) ==
LOC: C.LAB1850 14:20
PROVIDERS: ATTEND Internal Medicine Pulmonary Disease
DX: R07.89 Other chest pain (principal)

== ENCOUNTER 2017-05-11 07:06 | Day surgery (SDC) | payer OTHER ==
[~2017-05-11] VITALS: Ht 172.7 cm; Wt 79.5 kg
[2017-05-11] VITALS (7 sets, daily range): BP systolic 99–125; BP diastolic 62–74; PULSE 47–55; TEMP 36.4–36.5; O2SAT 93–97; Ht 172.7 cm; Wt 79.5 kg
--- NOTE | 2017-05-11 08:50 | History & Physical Bridge Note ---
H&P Re-Evaluation Bridge Note: I have examined the patient, reviewed the History & Physical and in the interval since the performance of the History & Physical I have noted the following changes of clinical significance: No changes noted
--- NOTE | 2017-05-11 08:53 | Pre Sedation Assessment ---
Pre Sedation Assessment General Date of Sedation: May 11, 2017. Vital Signs Past 12 Hours Date Time Temp Pulse Resp B/P (MAP) Pulse Ox O2 Delivery O2 Flow Rate FiO2 05/11/17 07:44 36.5 55 18 105/72 (83) 96 Room Air Pre-Sedation Airway Assessment Smoking Status: Current Every Day Smoker Hx of Sleep Apnea: No Oral Cavity: WNL ASA Classification: Class I NPO Status Date of Last Intake of Fluids: May 10, 2017 Time of Last Intake of Fluids: 2299 Date of Last Intake of Solids: May 10, 2017 Time of Last Intake of Solids: 230 Procedure Planning Contraindications for Sedation: None Current Medications Reviewed: Yes Notes The planned sedation has been discussed with the patient. Informed Consent was obtained. I have identified the patient, determined the appropriateness of sedation and have assessed the patient immediately prior to the procedure. All medicine(s) and interventions are by my order.
[2017-05-11] MEDS ORDERED: LEVALBUTEROL 1.25MG/3ML NEB INH ONE (09:59)
[2017-05-11] MEDS ORDERED: MIDAZOLAM HCL 5 MG/ML 1 ML VIAL IV ONE (09:59)
[2017-05-11] MEDS ORDERED: LIDOCAINE 4% INH SOLN 4 ML BTL TOP ONE (09:59)
[2017-05-11] MEDS ORDERED: LIDOCAINE VISCOUS 2% 100ML TOP ONE (09:59)
[2017-05-11] MEDS ORDERED: OXYMETAZOLINE HCL 0.05% NA SPR 15 ML BTL ONE (09:59)
[2017-05-11] MEDS ORDERED: FENTANYL CITRATE INJ 50 MCG/1 ML 2 ML VIAL IV ONE (09:59)
--- NOTE | 2017-05-11 11:08 | Discharge Instructions ---
Discharge Instructions Date of Service May 11, 2017. Admission Reason for Admission: Copd, Chronic Cough, Shortness Of Breath Discharge Discharge Diagnosis / Problem: Chronic Mucopurulent Bronchitis Discharge Goals Goal(s): Therapeutic intervention Activity Recommendations Activity Limitations: resume your previous activity Lifting Limitations: none Exercise/Sports Limitations: none May Resume Sexual Activity: when tolerated Shower/Bathe: no limitations Driving or Machine Use: resume 1 day after discharge None . Instructions / Follow-Up Instructions / Follow-Up ACTIVITY RECOMMENDATIONS: * Rest today, resume normal activity tomorrow. * Do not drive today. SPECIAL CARE INSTRUCTIONS: * Call your physician if you experience any chest or shoulder pain, fever, coughing, spitting up blood (more than 2 teaspoons) or excessive shortness of breath. * Remove dressing from IV site (where needle was placed into the vein) after 2 hours. Apply a warm, moist compress to site if irritation occurs. Call physician if site becomes red or painful to touch. FOLLOW UP VISIT: * Keep any scheduled doctor appointments. Current Hospital Diet Patient's current hospital diet: Regular Discharge Diet Recommended Diet: Regular Diet Fluid Restriction: None Procedures Procedures Performed: BRONCHOSCOPY Pending Studies Studies pending at discharge: no Medical Emergencies . Who to Call and When: Medical Emergencies: If at any time you feel your situation is an emergency, please call 911 immediately. . Non-Emergent Contact Non-Emergency issues call your: Inseamer Call Non-Emergent contact if: temperature is above 101 . . "Provider Documentation" section prepared by Sundeep Wilkinson. . VTE Core Measure Inpt VTE Proph given/why not?: Treatment not indicated
--- NOTE | 2017-05-11 14:58 | OPERATIVE REPORT ---
DATE OF OPERATION: 05/11/2017 PROCEDURE: Fiberoptic bronchoscopy with bronchoalveolar lavage. INDICATIONS: Persistent cough refractory to outpatient therapy. ANESTHESIA PREOPERATIVELY: None. ANESTHESIA DURING PROCEDURE: Versed 5 mg IV, 50 mcg IV fentanyl, 20 mL 2% Xylocaine spray above and below the cords, 4% viscous Xylocaine intranasally. PROCEDURE NOTE: Fiberoptic bronchoscope was inserted into the right naris without difficulty, passed to the level of the true vocal cords. The cords appear to approximate normally with phonation without evidence for lesions or paralysis. The inferior portion of both cords showed an area of whitish discoloration or leukoplakia. No lesions were visible. The cords were anesthetized with 2% Xylocaine spray and the scope was then introduced in the trachea and right and left tracheobronchial tree. The fatou was sharp. The right main stem bronchus was found to be free of endobronchial lesions. The right upper lobe, the apical posterior and anterior segments, bronchus intermedius, right middle lobe, medial lateral segments and all basilar segments, right lower lobe were found to be free of endobronchial lesions. Bronchial crypts and clefts were seen throughout the right tracheobronchial tree. Each lobar segment was copiously lavaged with normosol and the aspirate sent for appropriate studies. Left tracheobronchial tree was explored and no obvious endobronchial lesion was seen. Left upper lobe, the apical-posterior and anterior segments, lingular subdivision, left lower lobe were found to be free of endobronchial lesions with a large amount of mucopurulent secretion lavaged from each lobar and segmental bronchus involving the left lower lobe until clear. A moderate degree of global inflammatory mucosal change was seen. No brushings or biopsies were deemed necessary. The procedure was terminated. The patient tolerated the procedure well and was given a nebulizer treatment with Xopenex 1.25 mg, then transferred to the medical treatment unit hemodynamically stable with no signs of respiratory compromise. We will await microbiological and cytologic examination of the bronchial washings. I attest to the content of the Intraoperative Record and any orders documented therein. Any exception s are noted below.
[2017-05-13 14:00] LABS: HERPES SIMPLEX VIRUS CULT NOT ISOLATED (NOT ISOLATED)
== END 2017-05-11 12:05 | disposition home or self-care (01) ==
LOC: C.ACU 07:06
PROVIDERS: ATTEND Internal Medicine Pulmonary Disease
DX: R05 Cough (principal); J44.9 Chronic obstructive pulmonary disease, unspecified; R06.02 Shortness of breath; I25.10 Atherosclerotic heart disease of native coronary artery without angina pectoris; I10 Essential (primary) hypertension; E78.5 Hyperlipidemia, unspecified; F32.9 Major depressive disorder, single episode, unspecified; Z98.890 Other specified postprocedural states; Z79.899 Other long term (current) drug therapy

== ENCOUNTER 2017-07-10 15:18 | Emergency (ER) | payer OTHER ==
[~2017-07-10] VITALS: Ht 172.7 cm; Wt 83.6 kg
[2017-07-10 15:26] VITALS: TEMP 36.5; Ht 172.7 cm; Wt 83.6 kg
[2017-07-10 15:49] VITALS: O2SAT 95
[2017-07-10] MEDS ORDERED: KETOROLAC TROMETHAMINE 30 MG/ML VIAL IV STA (15:49)
[2017-07-10] MEDS ORDERED: ACETAMINOPHEN 500 MG TAB PO STA (15:49)
[2017-07-10] MEDS ORDERED: ONDANSETRON INJ 2 MG/ML 2 ML VIAL IV STA (15:49)
[2017-07-10] MEDS ORDERED: LEVALBUTEROL/IPRATROPIUM NEB INH STA (15:49)
[2017-07-10] MEDS ORDERED: SODIUM CHLORIDE 0.9% 1000ML 1,000 ML IV ONE (16:00)
[2017-07-10] MEDS ORDERED: ASPIRIN 324 MG CHEW PO STA (16:02)
[2017-07-10] MEDS ORDERED: NITROGLYCERIN 2% OINTMENT 30GM TUBE EXT STA (16:02)
[2017-07-10 16:07] LABS: BASO % 0.2 %; BASO ABS # 0.01 K/uL (0-0.2); EOS % 1.8 %; HEMATOCRIT 47.8 % (42-52); HEMOGLOBIN 16.4 g/dL (14.0-18.0); IG# 0.01 K/uL (0.00-0.02); LYMPH % 20.4 %; LYMPH ABS # 1.15 K/uL (1.2-3.4); MEAN CELL VOLUME 88.5 fL (80-100); MEAN CORPUSCULAR HEMOGLOBIN 30.4 pg (25-34); MEAN CORPUSCULAR HGB CONC 34.3 g/dl (32-36); MEAN PLATELET VOLUME 11.5 fL (7.4-10.4); MONO ABS # 0.62 K/uL (0.11-0.59); NEUT % 66.4 %; NEUT ABS # 3.74 K/uL (1.4-6.5); PLATELET COUNT 158 K/uL (130-400); RED CELL DISTRIBUTION WIDTH CV 13.7 % (11.5-14.5); RED CELL DISTRIBUTION WIDTH SD 44.5 fL (36.4-46.3); WHITE BLOOD COUNT 5.63 K/uL (4.8-10.8)
--- NOTE | 2017-07-10 16:14 | EMERGENCY ROOM VISIT NOTE ---
History First contact with patient: 15:39 Chief Complaint: CHEST PAIN Stated Complaint: CHEST TIGHT, HAVING HARD-TIME BREATHING Nursing Triage Summary: Patient arrived to triage c/o bilateral chest pain since 0700 this am. Pt reports he's had a cough and when he coughs he has difficulty breathing and can't catch his breath. Patient states he's had nause and vomiting. Cough, N/V x 2 days. Head pain with cough. History of Present Illness The patient is a 57 year old male who presents to the Emergency Room with complaints of flulike symptoms and chest pain that started last evening. Patient reports a nonproductive cough, body aches, headache, nausea, vomiting, diarrhea that started yesterday. He describes the chest pain as a pressure that is worsened with cough. He also has shortness of breath, particularly when coughing. The patient does have a history of cardiac disease. He had an MD in 2012 and had one stent placed. Patient also is an every day 1 pack per day smoker. He denies any sick contacts. Review of Systems 10 system review performed and negative unless noted in HPI or below Past Medical/Surgical History Medical Problems: (1) Chronic congestive heart failure (2) Chronic obstructive lung disease (3) Myocardial infarct (4) Pneumonia Surgical Problems: (1) H/O angioplasty (2) Stented coronary artery Family History Diabetes mellitus Heart disease Hypertension Lung disease Social History Smoking Status: Current Every Day Smoker Alcohol Use: occasionally Drug Use: none Marital Status: Housing Status: lives with family Occupation Status: employed Current/Historical Medications Scheduled Aspirin (Aspirin Ec), 81 MG PO DAILY Bupropion Hcl (Bupropion Hcl Xl), 150 MG PO DAILY Citalopram (Citalopram Hydrobromide), 40 MG PO DAILY Levalbuterol Tartrate (Levalbuterol Tartrate Hfa), 2 PUFFS INH Q6H Levofloxacin (Levaquin), 500 MG PO DAILY Metoprolol Tartrate (Lopressor), 12.5 MG PO BID Ondasetron Odt (Zofran Odt), 4 MG SL Q6H Prednisone (Prednisone), 50 MG PO DAILY Scheduled PRN Hydroxyzine HCl (Hydroxyzine HCl), 25 MG PO TID PRN for Anxiety Physical Exam Vital Signs Date Time Temp Pulse Resp B/P (MAP) Pulse Ox O2 Delivery O2 Flow Rate FiO2 07/10/17 18:30 64 20 108/62 92 07/10/17 17:22 66 18 100/60 93 Room Air 07/10/17 16:34 64 14 96 Room Air 07/10/17 16:21 66 07/10/17 16:10 67 22 106/75 96 Room Air 07/10/17 15:49 95 Room Air 07/10/17 15:26 36.5 85 16 126/81 95 Room Air 07/10/17 15:26 95 Room Air Physical Exam VITALS: Vitals are noted on the nurse's note and reviewed by myself. Vital signs stable. GENERAL: 57-year-old male, mildly acutely ill in appearance., SKIN: The skin was without rashes, erythema, edema, or bruising. HEAD: Normocephalic atraumatic. EYES: Pupils equal round and reactive to light and accommodation. Extraocular movements intact. MOUTH: Mucous membranes dry. Tonsils are not enlarged. Pharynx without erythema or exudate. Uvula midline. Airway patent. Tongue does not deviate. NECK: Supple without nuchal rigidity. Posterior lymphadenopathy noted bilaterally.. Cervical spine is nontender. No JVD. HEART: Regular rate and rhythm without murmurs gallops or rubs. LUNGS: Diffuse wheezing with crackles at the left base. Mild tachypnea. ABDOMEN: Positive bowel sounds x 4.Soft, nontender, without organomegaly. No guarding or rebound tenderness. MUSCULOSKELETAL: No muscle atrophy, erythema, or edema noted. . Strength 5/5 throughout. NEURO: Patient was alert and oriented to person place and time. Normal sensation to touch. No focal neurological deficits. Medical Decision & Procedures ER Provider Diagnostic Interpretation: Chest x-ray IMPRESSION: No acute process. The above report was generated using voice recognition software. It may contain grammatical, syntax or spelling errors. Electronically signed by: Isaiah Gil M.D. 07/10/2017 5:08 PM Dictated Date/Time: 07/10/2017 5:07 PM The status of this report is Signed. Draft = Not yet reviewed or approved by Radiologist. Signed = Reviewed and approved by Radiologist. Laboratory Results 07/10/17 15:40 Red Blood Count 5.40, Mean Corpuscular Volume 88.5, Mean Corpuscular Hemoglobin 30.4, Mean Corpuscular Hemoglobin Concent 34.3, Mean Platelet Volume 11.5, Neutrophils (%) (Auto) 66.4, Lymphocytes (%) (Auto) 20.4, Monocytes (%) (Auto) 11.0, Eosinophils (%) (Auto) 1.8, Basophils (%) (Auto) 0.2, Neutrophils # (Auto ) 3.74, Lymphocytes # (Auto) 1.15, Monocytes # (Auto) 0.62, Eosinophils # (Auto ) 0.10, Basophils # (Auto) 0.01 07/10/17 15:40 Test 07/10/17 00:00 07/10/17 15:40 Influenza Type A Antigen Neg for Influ A (NEG) Influenza Type B Antigen Neg for Influ B (NEG) White Blood Count 5.63 K/uL (4.8-10.8) Red Blood Count 5.40 M/uL (4.7-6.1) Hemoglobin 16.4 g/dL (14.0-18.0) Hematocrit 47.8 % (42-52) Mean Corpuscular Volume 88.5 fL (80-100) Mean Corpuscular Hemoglobin 30.4 pg (25-34) Mean Corpuscular Hemoglobin Concent 34.3 g/dl (32-36) Platelet Count 158 K/uL (130-400) Mean Platelet Volume 11.5 fL (7.4-10.4) Neutrophils (%) (Auto) 66.4 % Lymphocytes (%) (Auto) 20.4 % Monocytes (%) (Auto) 11.0 % Eosinophils (%) (Auto) 1.8 % Basophils (%) (Auto) 0.2 % Neutrophils # (Auto) 3.74 K/uL (1.4-6.5) Lymphocytes # (Auto) 1.15 K/uL (1.2-3.4) Monocytes # (Auto) 0.62 K/uL (0.11-0.59) Eosinophils # (Auto) 0.10 K/uL (0-0.5) Basophils # (Auto) 0.01 K/uL (0-0.2) RDW Standard Deviation 44.5 fL (36.4-46.3) RDW Coefficient of Variation 13.7 % (11.5-14.5) Immature Granulocyte % (Auto) 0.2 % Immature Granulocyte # (Auto) 0.01 K/uL (0.00-0.02) Anion Gap 7.0 mmol/L (3-11) Est Creatinine Clear Calc Drug Dose 78.8 ml/min Estimated GFR () 86.9 Estimated GFR (Non- 74.9 BUN/Creatinine Ratio 10.8 (10-20) Calcium Level 8.6 mg/dl (8.5-10.1) Total Bilirubin 0.7 mg/dl (0.2-1) Aspartate Amino Transf (AST/SGOT) 14 U/L (15-37) Alanine Aminotransferase (ALT/SGPT) 18 U/L (12-78) Alkaline Phosphatase 75 U/L (45-117) Total Creatine Kinase 145 U/L (39-308) Creatine Kinase MB 0.7 ng/ml (0.5-3.6) Creatine Kinase MB Ratio 0.5 (0-3.0) Troponin I 0.017 ng/ml (0-0.045) Total Protein 7.6 gm/dl (6.4-8.2) Albumin 3.8 gm/dl (3.4-5.0) Globulin 3.8 gm/dl (2.5-4.0) Albumin/Globulin Ratio 1.0 (0.9-2) Medications Administered Medications (Trade) Dose Ordered Sig/Garima Route Start Time Stop Time Status Last Admin Dose Admin Acetaminophen (Tylenol Tab) 1,000 mg NOW STAT PO 07/10/17 15:49 07/10/17 15:53 DC 07/10/17 16:17 1,000 MG Ketorolac Tromethamine (Toradol Inj) 30 mg NOW STAT IV 07/10/17 15:49 07/10/17 15:53 DC 07/10/17 16:08 30 MG Sodium Chloride 1,000 ml @ 999 mls/hr Q1H1M ONCE IV 07/10/17 16:00 07/10/17 17:00 DC 07/10/17 16:08 999 MLS/HR Ondansetron HCl (Zofran Inj) 4 mg NOW STAT IV 07/10/17 15:49 07/10/17 15:53 DC 07/10/17 16:08 4 MG Aspirin (Aspirin Chew) 324 mg NOW STAT PO 07/10/17 16:02 07/10/17 16:04 DC 07/10/17 16:08 324 MG Nitroglycerin (Nitroglycerin 2% Oint) 1 inch ONE STAT EXT 07/10/17 16:02 07/10/17 16:04 DC 07/10/17 16:08 1 INCH Levalbuterol (Xopenex 1.25MG/ 0.5ML Neb) 1.25 mg STK-MED ONCE INH 07/10/17 16:28 07/10/17 16:29 DC 07/10/17 16:32 1.25 MG Ipratropium [place] (Atrovent 0.02% 0.5MG/2.5ML Neb) 0.5 mg STK-MED ONCE .ROUTE 07/10/17 16:28 07/10/17 16:29 DC 07/10/17 16:32 0.5 MG Methylprednisolone Sodium Succinate (Solu-Medrol IV) 125 mg NOW STAT IV 07/10/17 17:44 07/10/17 17:46 DC 07/10/17 17:51 125 MG Levofloxacin (Levaquin Tab) 500 mg NOW ONCE PO 07/10/17 17:45 07/10/17 17:46 DC 07/10/17 17:51 500 MG ECG Per My Interpretation Indication: chest pain Rate (beats per minute): 79 Rhythm: normal sinus Findings: other (Q waves in the anterior leads) Change: no significant change ED Course Patient was seen and examined Vital signs including blood pressure were reviewed medications list was verified with patient Labs were obtained, and a saline lock was established An EKG was performed and reviewed by myself. The patient was put on a monitor. He was medicated with Toradol, Tylenol, Zofran, Xopenex nebulizer and IV fluids The case was discussed with my supervising physician who is in agreement with my plan The patient was reassessed and resting in bed. We thoroughly reviewed his workup. He voiced understanding. The patient was given 1 dose of Solu-Medrol. He was also given a dose of Levaquin. I reviewed discharge instructions the patient. They voiced understanding and had no further questions. Medical Decision Differential diagnosis: Pneumonia, influenza, acute bronchitis, Acute myocardial infarction, cardiac arrhythmia, anemia, thyroid abnormality, pneumothorax, pericarditis, electrolyte imbalance This patient is a 57-year-old male presents to the emergency department complaining of flulike symptoms and chest pain. The chest pain did not sound cardiac in nature as it is exacerbated with coughing. The patient's workup shows no leukocytosis. Troponin and other cardiac markers are negative. EKG shows no signs of acute ischemia, and is unchanged when compared to prior. Chest x-ray was negative for pneumonia. Patient did have crackles at the left base. He also is a heavy smoker and likely has underlying COPD. The patient for this reason will be treated with a course of Levaquin, steroids and Xopenex inhaler. He was also advised to have very close follow-up with his primary care physician. He agrees to return to emergency department with any worsening symptoms. This chart was completed in part utilizing [employer] Speech Voice Recognition software. Attempts were made to minimize the grammatical errors, random word insertions, pronoun errors and incomplete sentences. Any formal questions or concerns about the content, text or information contained within the body of this dictation should be directly addressed to the provider for clarification. [place] Drug Monitoring [place] Search Results: patient reviewed within database Medication Reconcilliation Current Medication List: was personally reviewed by me Blood Pressure Screening Patient's blood pressure: Normal blood pressure Impression Primary Impression: Flu-like symptoms Departure Information Dispostion Home / Self-Care Condition GOOD Prescriptions Ondasetron Odt (ZOFRAN ODT) 4 Mg Tab 4 MG SL Q6H for Nausea, #15 TAB Prov: Carol Ann Cantrell PA-C 07/10/17 Levalbuterol Tartrate (Levalbuterol Tartrate Hfa) 45 Mcg/Act Aer 2 PUFFS INH Q6H for Shortness of Breath, #1 INHALER Prov: Carol Ann Cantrell PA-C 07/10/17 Prednisone (Prednisone) 50 Mg Tab 50 MG PO DAILY for 4 Days, #4 TAB Prov: Carol Ann Cantrell PA-C 07/10/17 Levofloxacin (Levaquin) 500 Mg Tab 500 MG PO DAILY for 4 Days, #4 TAB Prov: Carol Ann Cantrell PA-C 07/10/17 Referrals Braeden Goff M.D. (PCP) Patient Instructions My [facility] Additional Instructions You have been evaluated in the emergency department for a cough and chest pain. Please take the entire course of Levaquin and prednisone. Please take Zofran 1 tab every 6 hours as needed for nausea Please use the Xopenex inhaler every 6 hours as needed for difficulty breathing Please try to get plenty of rest. Increase fluids over the next several days. Ibuprofen 800 mg and/or Tylenol 1000 mg every 8 hours. You may also alternate these medications for more effective pain relief: Ibuprofen --4 HRS--> Tylenol --4 HRS--> ibuprofen --4 HRS--> Tylenol .... Please follow-up as soon as possible with your primary care physician. Call first thing either tomorrow or Thursday morning for a follow-up appointment. Please do not hesitate to return to the emergency department with any new, worsening or concerning symptoms; especially, worsening breathing, pain or fever of 104F or greater Work Instructions Return To Work: 2 days
[2017-07-10 16:24] LABS: ALBUMIN 3.8 gm/dl (3.4-5.0); CALCIUM 8.6 mg/dl (8.5-10.1); CREATININE 1.09 mg/dl (0.60-1.40); POTASSIUM 3.8 mmol/L (3.5-5.1)
[2017-07-10] MEDS ORDERED: IPRATROPIUM BROMIDE NEB SOLN 0.02% 2.5 ML VIAL ONE (16:28)
[2017-07-10] MEDS ORDERED: LEVALBUTEROL 1.25MG/0.5ML NEB INH ONE (16:28)
[2017-07-10 16:32] LABS: CKMB 0.7 ng/ml (0.5-3.6); TOTAL PROTEIN 7.6 gm/dl (6.4-8.2)
[2017-07-10 16:34] VITALS: PULSE 64; O2SAT 96
[2017-07-10 16:52] LABS: INFLUENZA B ANTIGEN Neg for Influ B (NEG)
--- NOTE | 2017-07-10 17:10 | DIAGNOSTIC IMAGING REPORT ---
CHEST 2 VIEWS ROUTINE HISTORY: 57 years-old Male cough fever crackles L base acute cough and fever COMPARISON: Chest radiographs 01/27/2017, CT chest 04/29/2017 TECHNIQUE: PA and lateral views of the chest FINDINGS: Cardiomediastinal and hilar silhouettes are within normal limits. There is no pneumothorax, pleural effusion, focal airspace consolidation or overt pulmonary edema. The bones of the chest appear grossly intact. Minimal degenerative changes of the spine and shoulders. IMPRESSION: No acute process. The above report was generated using voice recognition software. It may contain grammatical, syntax or spelling errors. Electronically signed by: Isaiah Gil M.D. 07/10/2017 5:08 PM Dictated Date/Time: 07/10/2017 5:07 PM
[2017-07-10] MEDS ORDERED: METHYLPREDNISOLONE 125 MG VIAL IV STA (17:44)
[2017-07-10] MEDS ORDERED: LEVOFLOXACIN 250 MG TAB PO ONE (17:45)
[2017-07-10] MEDS ORDERED: LEVO-366 PO (18:18)
[2017-07-10] MEDS ORDERED: PRED50TA PO (18:18)
[2017-07-10] MEDS ORDERED: ONDA4TAB10 SL (18:18)
[2017-07-10] MEDS ORDERED: LEVA45AE INH (18:18)
[2017-07-10 18:30] VITALS: BP 108/62; PULSE 64; O2SAT 92
== END 2017-07-10 18:31 | disposition home or self-care (01) ==
LOC: C.EDB 15:20
DX: R07.9 Chest pain, unspecified (principal); R05 Cough; R51 Headache; R11.2 Nausea with vomiting, unspecified; R19.7 Diarrhea, unspecified; Z95.5 Presence of coronary angioplasty implant and graft; F17.210 Nicotine dependence, cigarettes, uncomplicated; I50.9 Heart failure, unspecified; J44.9 Chronic obstructive pulmonary disease, unspecified; I25.2 Old myocardial infarction; Z87.01 Personal history of pneumonia (recurrent); Z83.3 Family history of diabetes mellitus; Z82.49 Family history of ischemic heart disease and other diseases of the circulatory system; Z79.82 Long term (current) use of aspirin; Z79.899 Other long term (current) drug therapy

== ENCOUNTER 2017-12-15 22:39 | Emergency (ER) | payer OTHER ==
[~2017-12-15] VITALS: Ht 172.7 cm; Wt 78.8 kg
[~2017-12-15 22:39] MED LIST changes: -ATOR-26 PO; +LEVA45AE INH; +ONDA4TAB10 SL
[2017-12-15 22:42] VITALS: TEMP 36.6; Ht 172.7 cm; Wt 78.8 kg
[2017-12-15] MEDS ORDERED: IBUP-1050 PO (23:01)
[2017-12-15] MEDS ORDERED: LEVA45AE INH (23:02)
[2017-12-15] MEDS ORDERED: LORAZEPAM 1 MG TAB SL STA (23:38)
[2017-12-15] MEDS ORDERED: KETOROLAC TROMETHAMINE 60 MG/2 ML VIAL IM STA (23:38)
[2017-12-15] MEDS ORDERED: LEVOFLOXACIN 500 MG TAB PO STA (23:38)
--- NOTE | 2017-12-15 23:40 | EMERGENCY ROOM VISIT NOTE ---
History Report prepared by Vinay: Joon Lilly Under the Supervision of: Dr. Sarai Kilgore D.O. First contact with patient: 23:00 Chief Complaint: HEADACHE Stated Complaint: PRESSURE IN HEAD, TIRED HAVEN'T SLEPT IN 3 DAYS History of Present Illness The patient is a 57 year old male who presents to the Emergency Room with complaints of constant head pressure beginning five days ago. The patient states that he believes that he has a sinus infection because he has had head pressure for the last five days. He also complains that his ears feel plugged up and he notes that he feels tired. Per mom, the patient has had similar episodes since he was [age]. She reports that the patient typically feels this way for a few months, but the patient states that he has not had an episode in a while. He notes that he had a migraine the day before his symptoms began, and he reports that he typically does not have any problems sleeping. The patient states that he is typically given Levaquin for his symptoms and Ativan for his temper. He notes that he was not able to see his PCP, prompting his visit to the emergency department today. 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 He states that his surgery seemed to worsen his symptoms. Per , the patient stated that he wanted to go the [place] because his head pressure is "driving him nuts." She notes that the patient's symptoms cause him to lose his temper. She reports that he was throwing things and hitting the dryer today. She states that the patient did not hit anyone. The patient notes that he took an extra Celexa today because he could not sleep and wanted to feel better. Per mom, the patient 's father had a history of migraines. She reports that the patient's father committed suicide because of his migraine symptoms. She states that the patient' s treatments "often work in the opposite way than what they are supposed to." The patient notes that he smokes cigarettes but does not drink alcohol. Source of History: patient, parent (mom), spouse/significant other () Onset: five days ago Position: head Quality: other (pressure) Timing: constant Note: The patient also complains of clogged ears, feeling tired, and a lack of sleep. Review of Systems See HPI for pertinent positives & negatives. A total of 10 systems reviewed and were otherwise negative. Past Medical & Surgical Medical Problems: (1) Chronic congestive heart failure (2) Chronic obstructive lung disease (3) Myocardial infarct (4) Pneumonia Surgical Problems: (1) H/O angioplasty (2) Stented coronary artery Family History Diabetes mellitus FH: migraines FH: suicide Gallbladder disease Heart disease Hypertension Kidney disease Kidney stones Lung disease Social History Smoking Status: Current Every Day Smoker Alcohol Use: occasionally Drug Use: none Marital Status: Housing Status: lives with family Occupation Status: employed Current/Historical Medications Scheduled Aspirin (Aspirin Ec), 81 MG PO DAILY Citalopram (Citalopram Hydrobromide), 40 MG PO DAILY Ibuprofen (Advil), 400 MG PO PRN UD Levofloxacin (Levaquin), 1 TAB PO DAILY Lorazepam (Ativan), 1 MG SL Q4 Metoprolol Tartrate (Lopressor), 12.5 MG PO BID Scheduled PRN Hydroxyzine HCl (Hydroxyzine HCl), 25 MG PO TID PRN for Anxiety Levalbuterol Tartrate (Levalbuterol Tartrate Hfa), 2 PUFFS INH Q6 PRN for Shortness of Breath Allergies Coded Allergies: Iodinated Diagnostic Agents (Verified Allergy, Severe, HIVES, 07/10/17) reports allergy to "IV contrast" Physical Exam Vital Signs Date Time Temp Pulse Resp B/P (MAP) Pulse Ox O2 Delivery O2 Flow Rate FiO2 12/16/17 00:46 58 18 111/77 98 12/15/17 22:42 36.6 65 18 150/84 96 Room Air Physical Exam HEENT: Head - normocephalic and atraumatic Pupils are equal, round, and reactive to light. Extraocular eye muscles are intact, and sclera are anicteric. Nose - moist nasal mucosa without discharge. Enlarged turbinates in both nostrils. Mouth - moist buccal mucosa. Oropharynx is nonerythematous and there is no tonsillar exudate or edema noted. Ears - TMs unremarkable. Neck: Supple; no JVD, nuchal rigidity, cervical lymphadenopathy. Heart: Regular rate and rhythm. There is a normal S1 and S2 with no murmurs, clicks, or gallops appreciated. Lungs: Clear to auscultation bilaterally with no wheezes, rales, or rhonchi. Abdomen: Soft, completely nontender, nondistended, with good bowel sounds. There are no palpable pulsatile masses or hepatosplenomegaly. There is no guarding, rigidity, or rebound noted. Extremities: No evidence of cyanosis, clubbing, or edema. There are easily palpable peripheral pulses. Skin: warm and dry with good turgor and no rashes. Medical Decision & Procedures Medications Administered Medications (Trade) Dose Ordered Sig/Garima Route Start Time Stop Time Status Last Admin Dose Admin Ketorolac Tromethamine (Toradol Inj) 60 mg NOW STAT IM 12/15/17 23:38 12/15/17 23:40 DC 12/15/17 23:49 60 MG Lorazepam (Ativan Tab) 2 mg NOW STAT SL 12/15/17 23:38 12/15/17 23:40 DC 12/15/17 23:48 2 MG Levofloxacin (Levaquin Tab) 500 mg STK-MED ONCE .ROUTE 12/15/17 23:47 12/15/17 23:48 DC 12/15/17 23:49 500 MG Procedure Medications Administered: Levaquin Tab 500mg PO x2, Ativan Tab 2mg SL, and Toradol Inj 60mg IM. ED Course 2323: Past medical records reviewed. The patient was evaluated in room C2. A complete history and physical exam was performed. 2338: Levaquin Tab 500mg PO, Ativan Tab 2mg SL, Toradol Inj 60mg IM 2358: I did a PDMP search on the patient. There were no red flags 0032: Upon reevaluation, the patient is stable and states that he feels better. I discussed findings and results with him. He verbalized agreement of the treatment plan. The patient was discharged home. Medical Decision The patient is a 57 year old male who presents to the Emergency Room with complaints of constant head pressure beginning five days ago. Differential diagnoses include: mood disorder, sinusitis, obstructed sinuses, sleep deprivation, and sinus abscess. This is a 57-year-old male patient presents to the emergency department with no sleep for the past 3 days and increasing sinus pressure. The patient has a long -standing history of recurrent sinus infections which last for some time. He has had no ENT follow-up since he was a teenager with regards to these sinus infections. This particular episode of sinus pressure/infection has prevented him from sleeping. The patient states that he has become extremely frustrated and sleep deprived. He has had very similar episodes in the past which she was prescribed Levaquin for the infection and that cleared it up. He also has taken Ativan in the past for sleep. Patient was given IM Toradol and a dose of sublingual Ativan as well as a dose of Levaquin. Strongly encourage the patient to follow-up with his PCP for referral for ENT. He will most likely require a CT scan of the sinuses and an ENT follow-up. I spent some time talking to the patient and his about the anger he had today. He denies being suicidal and has no intentions of hurting anyone else. He was given a prescription for Ativan to use for sleep and Levaquin use over the next 10 days. I did warn the patient and his about the possibility of an abscess within the sinuses. He was told return to the emergency department for worsening symptoms especially fever, lethargy or vomiting. [place] Results: patient reviewed within database, no issues identified Medication Reconcilliation Current Medication List: was personally reviewed by me Blood Pressure Screening Patient's blood pressure: Normal blood pressure Blood pressure disposition: Did not require urgent referral Impression Primary Impression: Sinusitis Additional Impression: Sleep deprivation Scribe Attestation The scribe's documentation has been prepared under my direction and personally reviewed by me in its entirety. I confirm that the note above accurately reflects all work, treatment, procedures, and medical decision making performed by me. Departure Information Dispostion Home / Self-Care Prescriptions Levofloxacin (LEVAQUIN) 500 Mg Tab 1 TAB PO DAILY for 10 Days, #10 TAB Prov: Sarai Kilgore D.O. 12/16/17 Lorazepam (ATIVAN) 1 Mg Tab 1 MG SL Q4, #10 TAB Prov: Sarai Kilgore D.O. 12/16/17 Referrals Braeden Goff M.D. (PCP) Forms HOME CARE DOCUMENTATION FORM, IMPORTANT VISIT INFORMATION Patient Instructions My [facility] Additional Instructions You must follow up with PCP for referral to ENT Rest with head elevated. take Levaquin daily Return to the ER for worsening symptoms Problem Qualifiers Primary Impression: Sinusitis Sinusitis location: frontal Chronicity: acute Recurrence: recurrent Qualified Codes: J01.11 - Acute recurrent frontal sinusitis
[2017-12-15] MEDS ORDERED: LEVOFLOXACIN 250 MG TAB ONE (23:47)
[2017-12-16] MEDS ORDERED: ATV/1 SL (00:30)
[2017-12-16] MEDS ORDERED: LEVO500T19 PO (00:30)
[2017-12-16 00:46] VITALS: BP 111/77; PULSE 58; O2SAT 98
== END 2017-12-16 00:40 | disposition home or self-care (01) ==
LOC: C.EDB 22:41 → C.EDC 12-16 00:40
DX: J01.11 Acute recurrent frontal sinusitis (principal); Z72.820 Sleep deprivation; F17.210 Nicotine dependence, cigarettes, uncomplicated; J44.9 Chronic obstructive pulmonary disease, unspecified; I25.2 Old myocardial infarction; Z87.01 Personal history of pneumonia (recurrent); I50.9 Heart failure, unspecified; Z95.5 Presence of coronary angioplasty implant and graft; Z83.3 Family history of diabetes mellitus; Z83.79 Family history of other diseases of the digestive system; Z82.49 Family history of ischemic heart disease and other diseases of the circulatory system; Z84.1 Family history of disorders of kidney and ureter; Z79.82 Long term (current) use of aspirin; Z79.899 Other long term (current) drug therapy; Z91.041 Radiographic dye allergy status

== ENCOUNTER 2019-01-14 18:07 | Inpatient (IN) ==
[2019-01-14] MEDS ORDERED: ALBUT/IPRATROP 3MG/0.5MG NEB 3 ML VIAL INH STA (18:42)
[2019-01-14] MEDS ORDERED: methylPREDNISolone 125 MG/2 ML VIAL IV STA (18:42)
[2019-01-14] MEDS ORDERED: SODIUM CHLORIDE 0.9% 500 ML IV SCH (18:45)
--- NOTE | 2019-01-14 18:58 | XRay Report ---
XR chest 1V portable CLINICAL HISTORY: 58 years-old Male presenting with Dyspnea. TECHNIQUE: Portable upright AP view of the chest was obtained. COMPARISON: 11/03/2018. FINDINGS: Cardiac silhouette top normal in size. Lungs are hyperinflated. No focal opacity. No pleural effusion or pneumothorax. Osseous structures normal. Upper abdomen normal. IMPRESSION: 1. Hyperinflation could be due to inspiratory effort or indicate underlying emphysema or other obstr uctive lung disease. No focal infiltrate to suggest pneumonia. Electronically signed by: Jarad Michaels M.D. 01/14/2019 6:56 PM
[2019-01-14 18:59] LABS: Basophils # (auto) 0.03 K/uL (0-0.2); Basophils % (auto) 0.5 %; Eosinophils # (auto) 0.11 K/uL (0-0.5); Eosinophils % (auto) 1.7 %; Hematocrit (blood only) 43.7 % (42-52); Hemoglobin 15.1 g/dL (14.0-18.0); Immature Granulocytes # (auto) 0.01 K/uL (0.00-0.02); Immature Granulocytes % (auto) 0.2 %; Lymphocytes # (auto) 1.08 K/uL (1.2-3.4); Lymphocytes % (auto) 16.2 %; Mean Corpuscular Hemoglobin 30.8 pg (25-34); Mean Corpuscular Hgb Conc 34.6 g/dL (32-36); Mean Corpuscular Volume 89.2 fL (80-100); Mean Platelet Volume 11.2 fL (7.4-10.4); Monocytes # (auto) 0.62 K/uL (0.11-0.59); Monocytes % (auto) 9.3 %; Neutrophils # (auto) 4.81 K/uL (1.4-6.5); Neutrophils % (auto) 72.1 %; Platelet Count 151 K/uL (130-400); White Blood Count 6.66 K/uL (4.8-10.8)
[2019-01-14 19:10] LABS: Partial Thromboplastin Ratio 0.9; Partial Thromboplastin Time 25.5 Seconds (21.0-31.0); Prothrombin Time 9.9 Seconds (9.0-12.0)
[2019-01-14 19:21] LABS: Alanine Aminotransferase 16 U/L (12-78); Albumin Level 3.5 gm/dl (3.4-5.0); Aspartate Aminotransferase 14 U/L (15-37); BUN Creatinine Ratio 12.5 (10-20); Blood Urea Nitrogen 11 mg/dl (7-18); Calcium 8.6 mg/dl (8.5-10.1); Carbon Dioxide 26 mmol/L (21-32); Chloride 103 mmol/L (98-107); Creatinine Clr Calc Pharmacy 85.6 ml/min; Est GFR (African American) 107.3; Est GFR (Non-African American) 92.6; Glucose 82 mg/dl (70-99); Magnesium 1.9 mg/dl (1.8-2.4); Sodium 136 mmol/L (136-145)
[2019-01-14 19:26] LABS: Alkaline Phosphatase 67 U/L (45-117); Bilirubin,Total 0.5 mg/dl (0.2-1); Globulin 3.4 gm/dl (2.5-4.0); Total Protein 6.9 gm/dl (6.4-8.2); Troponin I < 0.015 ng/ml (0-0.045)
[2019-01-14 19:50] LABS: Influenza A virus by PCR Neg for Influ A (Neg); Influenza B virus by PCR Neg for Influ B (Neg)
[2019-01-14] MEDS ORDERED: KETOROLAC TROMETHAMINE 15 MG/ML VIAL IV STA (20:22)
[2019-01-14] MEDS ORDERED: ACETAMINOPHEN 500 MG TAB PO STA (20:22)
--- NOTE | 2019-01-14 21:47 | History & Physical Report ---
Date of Service January 14, 2019 Assessment & Plan (1) COPD exacerbation: 58 yo M here with SOB and dry cough x 2 days requiring 3L NC in ED. COPD exac -CXR with no infiltrates -no leukocytosis, afebrile, normotensive -mildly hypoxic Plan -O2 as needed -solumedrol 125x1 in ED, tomorrow 60 q8h -does not tolerate albuterol well - will add xopenex/atrovent -would benefit from f/u with pulmonology for further counseling CAD, h/o stent -CP free, neg trop, EKG stable. -cont metoprolol, ASA Tobacco abuse -discussed tobacco cessation, pt is in contemplation stage -nicoderm ordered FEN/GI: HH diet, no fluids indicated at this time. DVT ppx: heparin q12 CODE STATUS: FULL as d/w pt and at bedside DISPO: med/surg. Other ongoing medical problems: depression - cont home citalopram (2) Stented coronary artery: (3) Benign essential hypertension: (4) Depression: (5) Tobacco abuse: History of Present Illness Chief Complaint: shortness of breath Primary Care Provider: Braeden Goff MD 58 yo M with PMH CAD w/ h/o stent x 1, and COPD who presents with 2 days worsening shortness of breath and cough. Says he began to feel chills and feeling unwell two days ago, decreased PO appetite. Increasing cough today and worsening shortness of breath associated with chest tightness. In ED required 3L via NC. Given solumedrol and duoneb treatments. Of note, pt is noncompliant with advair, albuterol ("makes my heart race") and smokes 1 PPD since age 26. SH: h/o working [employer], Lives with his who is present at bedside. PMH 1. CAD with BM stent x1 2012, repeat cath 2017 showed mild/nonobstructive CAD 2. COPD 3. depression 4. HTN PSH 1. polypectomy ENT 2. cath stents as above I personally interviewed and examined the patient. I agree with history of present illness and physical exam mentioned above, I also performed my own history taking and examination. Past medical history and review of system has been obtained by myself I reviewed all pertinent labs and studies Reviewed current medications I discussed and formulated of the assessment and plan mentioned above. Please refer to the Summary mentioned below. 58-year-old man smoker with history of coronary artery disease status post PCI and stenting, COPD presented to the hospital with severe shortness of breath and productive cough was found to have hypoxia required CO2 supplement in the ED. No pneumonia detected on x-ray but possibly bronchitis by history. Acute respiratory failure with hypoxia COPD exacerbation Bacterial bronchitis Start patient on bronchodilators/steroids Azithromycin for bronchitis Ordered an EKG Morning hospitalist to repeat EKG rule out QTC prolongation. Physical examination General patient appears to be comfortable, not in acute distress HEENT: Atraumatic , normocephalic /no jaundice /no pallor /anicteric /no dry mucous membrane /normal external ear inspection Neck: Supple /no swelling /central trach Heart: S1/S2 normal/regular rate and rhythm/no gallop /no rub /no murmur Lungs: Decreased air entry bilaterally, generalized wheezing both lung burgos, scattered rhonchi, no chest wall tenderness Abdomen: Soft/nontender/no guarding/no rebound/no organomegaly/no pulsatile mass Musculoskeletal: No swelling/no edema/no tenderness/normal range of motion Neuro exam: Awake alert oriented 3/cranial nerves II through XII appear to be intact/sensation intact/moves all extremities/no abnormal movements Psychiatric evaluation: No depressed mood/normal affect Skin: No rash on exposed skin area/no erythema Extremity: Normal pulse/no pitting edema/no clubbing or cyanosis Endocrine/lymphatic: No obvious lymphadenopathy /no lymphedema Helene Balbuena MD, [facility] hospitalist group Allergies Allergy/AdvReac Type Severity Reaction Status Date / Time Iodinated Contrast Media Allergy Severe HIVES Verified 11/04/18 00:39 atorvastatin AdvReac Intermediate FATIQUE, Verified 11/04/18 00:41 OVER TIRED. Home Medications Home Medications Medication Instructions Recorded Confirmed Type aspirin [Aspirin Low Dose] 81 mg PO QAM 01/14/18 01/14/19 History metoprolol tartrate 12.5 mg PO BID 01/14/18 01/14/19 History ibuprofen 400 mg PO QID PRN 06/25/18 01/14/19 History citalopram 40 mg tablet 40 mg PO QAM #90 tab 10/25/18 01/14/19 Rx Past Med/Surg History Medical History Anxiety Chronic obstructive pulmonary disease INHALER PRN Congestive heart failure Hyperlipidemia REFUSING MEDS Hypertension Migraine Myocardial Infarction 10/2012---LEFT ARM NUMB, SOB--FOLLOWS WITH DR. OROZCO Surgical History History of bronchoscopy 2016 @ [facility] DR. ZEPEDA History of cardiac cath X3--10/2012 (X1 STENT), 2013, 2016 History of colonoscopy History of endoscopic sinus surgery History of heart artery stent 10/2012 @ [facility] X1 STENT History of tooth extraction WISDOM TEETH Family History Son Family history of reaction to anesthesia DIFFICULT TO WAKE UP Sister Family history of diabetes mellitus Social History Preferred Language: Turkmen Communication Ability: Effective Attorney At Law Required: No Beliefs That Will Affect Care: None Current Living Situation: Spouse Current Living Situation Comment: LIVES WITH AND SON Other Information That Helps Us Care for You: No Feels Safe at Home: Yes Safety Concerns: Feels Safe At This Time Smoking Status: Current every day smoker Tobacco Type: cigarettes ; Cigarettes Per Day: 20 ; Do You Dip or Chew Tobacco: No ; Second Hand Exposure: No ; Tobacco Cessation Education Requested by Patient: No Hx Alcohol Use: No Hx Substance Use: No Review of Systems Review of Systems: All systems reviewed & are unremarkable except as noted in HPI & below denies chest pain, or radiating pain. Denies abdominal pain, cramping, dysuria, diarrhea, leg swelling. Endorses bilateral lower back pain. ENdorses neck tightness. Physical Exam Physical Exam: Vitals noted and within normal limits with the exception of hypoxia GENERAL: Awake, alert to person, place, and time, nontoxic-appearing, in no distress. HENT: Normocephalic, atraumatic. Nasal cannula in place. Mucus membranes appear moist. EYES: Normal conjunctiva. Sclera non-icteric. EOMI. NECK: Supple. Full range of motion. RESPIRATORY: Mild expiratory wheeze throughout with mild rhonchi in LL base. Normal work of breathing. CARDIAC: Regular rate, normal rhythm. Extremities warm and well perfused, ABDOMEN: Soft, non-distended. Bowel sounds are normal. LOWER EXTREMITIES: Inspection of calves reveal equal size bilaterally. They are non-tender. No edema. No discoloration. NEURO: No gross focal motor deficits noted. Sensation in tact. CN II-XII grossly in tact. . SKIN: Rash not present. No jaundice noted. Significant lesions not present. PSYCH: Appropriate mood and affect. Cooperative. is present at bedside. Exam as done by Vicenta Serrano MD, Weatherization Specialist. Results & Data Vital Signs (Past 12 Hours) Vital Signs Temp Pulse Pulse Resp BP Pulse Ox 01/14/19 21:10 95 H 22 95 01/14/19 21:00 98 H 17 103/64 01/14/19 20:30 97 H 19 121/69 93 01/14/19 20:00 89 19 124/69 100 01/14/19 19:30 66 22 117/69 100 01/14/19 19:07 63 19 97 01/14/19 19:03 75 24 94 01/14/19 19:01 94 01/14/19 19:00 65 19 108/70 94 01/14/19 18:30 63 22 105/70 95 01/14/19 18:14 37.0 C 75 24 102/75 93 Code Status & VTE Plan VTE Prophylaxis Plan VTE Prophylaxis will be ordered: Yes PG Care Time/CCT Total # of Minutes Spent Total Time Spent with Patient: Total time spent is greater than 50% in coordination of care (as documented) at patient's floor/unit and/or counseling patient: Resident Activity Tracking Resident Involvement: Resident Care Provided Care Provided: Adult Hospital Medicine
[2019-01-14] MEDS ORDERED: ALUMINUM/MAGNESIUM SUSP 30 ML UDC PO PRN (22:13)
[2019-01-14] MEDS ORDERED: MAGNESIUM HYDROXIDE SUSP 30 ML UDC PO PRN (22:13)
[2019-01-14] MEDS ORDERED: ZOLPIDEM TARTRATE 5 MG TAB PO PRN (22:13)
[2019-01-14] MEDS ORDERED: ONDANSETRON INJ 2 MG/ML 2 ML VIAL IV PRN (22:13)
[2019-01-14] MEDS ORDERED: IBUPROFEN 200 MG TAB PO PRN (22:13)
[2019-01-14] MEDS ORDERED: POLYETHYLENE (MIRALAX) 17 GM PACK PO PRN (22:13)
[2019-01-14] MEDS ORDERED: AZITHROMYCIN 500 MG in DEXTROSE 5% 250 ML IV SCH (23:00)
--- NOTE | 2019-01-15 00:36 | Emergency Department Note ---
Entered by Maame Day acting as a scribe for Brett Self M.D. History of Present Illness General Chief complaint: Shortness of Breath/Dyspnea Stated complaint: COUGH, SHORTNESS OF BREATH, BACK HURTS Source: patient History of Present Illness Onset (ago): day(s) 1 Location: chest Pain Consistency: + constant Maximum Pain Intensity: 8 Current Pain Intensity: 8 Quality: + aching Associated symptoms: + denies other symptoms (denies any new swelling), + chest pain, + cough (without sputum), + headaches and + other; no fever/chills and no nausea/vomiting The patient is a 58 year old male who presents to the Emergency Room with complaints of shortness of breath that started last night. He also reports chest, back, and head pain that he describes at aching. He complains of cough but without sputum The patient notes that he has been around sick people recently. He denies fever, new swelling, and vomiting. He has had no recent travel or falls. He reports a history of pneumonia, which he was diagnosed with about 2 years ago. He has a history of smoking and COPD. He does not use any breathing treatments at home. He also had a cardiac stent placed in 2012, and still takes Aspirin daily. The patient reports an allergy to IV dye, stating he has broken out in hives from it. Home Medications Home Medications Medication Instructions Recorded Confirmed Type aspirin [Aspirin Low Dose] 81 mg PO QAM 01/14/18 01/14/19 History metoprolol tartrate 12.5 mg PO BID 01/14/18 01/14/19 History ibuprofen 400 mg PO QID PRN 06/25/18 01/14/19 History citalopram 40 mg tablet 40 mg PO QAM #90 tab 10/25/18 01/14/19 Rx Allergies Allergy/AdvReac Type Severity Reaction Status Date / Time Iodinated Contrast Media Allergy Severe HIVES Verified 11/04/18 00:39 atorvastatin AdvReac Intermediate FATIQUE, Verified 11/04/18 00:41 OVER TIRED. Past Med/Surg History Medical History Anxiety Chronic obstructive pulmonary disease INHALER PRN Congestive heart failure Hyperlipidemia REFUSING MEDS Hypertension Migraine Myocardial Infarction 10/2012---LEFT ARM NUMB, SOB--FOLLOWS WITH DR. OROZCO Surgical History History of bronchoscopy 2016 @ [facility] DR. ZEPEDA History of cardiac cath X3--10/2012 (X1 STENT), 2013, 2016 History of colonoscopy History of endoscopic sinus surgery History of heart artery stent 10/2012 @ [facility] X1 STENT History of tooth extraction WISDOM TEETH Family History Son Family history of reaction to anesthesia DIFFICULT TO WAKE UP Sister Family history of diabetes mellitus Social History Preferred Language: Bulgarian Communication Ability: Effective Bill Cutter Required: No Beliefs That Will Affect Care: None Current Living Situation: Spouse Current Living Situation Comment: LIVES WITH AND SON Other Information That Helps Us Care for You: No Feels Safe at Home: Yes Safety Concerns: Feels Safe At This Time Smoking Status: Current every day smoker Tobacco Type: cigarettes ; Cigarettes Per Day: 20 ; Do You Dip or Chew Tobacco: No ; Second Hand Exposure: No ; Tobacco Cessation Education Requested by Patient: No Hx Alcohol Use: No Hx Substance Use: No Review of Systems See HPI for pertinent positives & negatives. and A total of 10 systems reviewed and were otherwise negative Physical Exam Vital Signs Vital Signs - 24 hr 01/14/19 18:14 01/14/19 18:30 01/14/19 19:00 Temperature 37.0 C Temperature Source Oral Sepsis Recent Fever Within 48 Hours No Sepsis Action Taken by Nursing No Action Required Pulse Rate 75 63 65 Pulse Rate [Right Finger] Pulse Rate from SpO2 Sensor 64 64 Pulse Rhythm Respiratory Rate 24 22 19 Respiratory Effort / Characteristics Non-Labored Respiratory Depth Normal Blood Pressure 102/75 105/70 108/70 Blood Pressure Mean 84 81 82 Blood Pressure Position Sitting Pulse Oximetry 93 95 94 Oxygen Delivery Method Room Air Room Air Room Air Oxygen Flow Rate 01/14/19 19:01 01/14/19 19:03 01/14/19 19:07 Temperature Temperature Source Sepsis Recent Fever Within 48 Hours Sepsis Action Taken by Nursing Pulse Rate 75 Pulse Rate [Right Finger] 63 Pulse Rate from SpO2 Sensor Pulse Rhythm Regular Respiratory Rate 24 19 Respiratory Effort / Characteristics Non-Labored Spontaneous Respiratory Depth Blood Pressure Blood Pressure Mean Blood Pressure Position Pulse Oximetry 94 94 97 Oxygen Delivery Method Room Air Room Air Room Air Oxygen Flow Rate 01/14/19 19:30 01/14/19 20:00 01/14/19 20:30 Temperature Temperature Source Sepsis Recent Fever Within 48 Hours Sepsis Action Taken by Nursing Pulse Rate 66 89 97 H Pulse Rate [Right Finger] Pulse Rate from SpO2 Sensor 67 90 97 H Pulse Rhythm Respiratory Rate 22 19 19 Respiratory Effort / Characteristics Respiratory Depth Blood Pressure 117/69 124/69 121/69 Blood Pressure Mean 85 87 86 Blood Pressure Position Pulse Oximetry 100 100 93 Oxygen Delivery Method Room Air Room Air Oxygen Flow Rate 01/14/19 21:00 01/14/19 21:10 01/14/19 21:30 Temperature Temperature Source Sepsis Recent Fever Within 48 Hours Sepsis Action Taken by Nursing Pulse Rate 98 H 95 H 91 H Pulse Rate [Right Finger] Pulse Rate from SpO2 Sensor 96 H 89 Pulse Rhythm Respiratory Rate 17 22 20 Respiratory Effort / Characteristics Respiratory Depth Blood Pressure 103/64 110/65 Blood Pressure Mean 77 80 Blood Pressure Position Pulse Oximetry 95 93 Oxygen Delivery Method Nasal Cannula Nasal Cannula Oxygen Flow Rate 3 3 GENERAL: Awake, alert, fatigued-appearing, in no distress HENT: Normocephalic, atraumatic. Oropharynx unremarkable. EYES: Normal conjunctiva. Sclera non-icteric. NECK: Supple. No nuchal rigidity. RESPIRATORY: Clear to auscultation. Expiratory wheezes. Normal respiratory effort. CARDIAC: Normal rate. Normal rhythm. Extremities warm and well perfused. GI: Soft, non-distended. No tenderness to palpation. No rebound or guarding. No masses. RECTAL: Deferred. MUSCULOSKELETAL: Atraumatic. Chest examination reveals no tenderness. There is no CVA tenderness to palpation. LOWER EXTREMITIES: Calves are equal size bilaterally and non-tender. No edema NEURO: Normal sensorium. No sensory or motor deficits noted. No facial droop. SKIN: Warm and dry. No rash or jaundice noted. Course 1838: Past medical records reviewed. The patient was evaluated in room C10. A complete history and physical exam was performed. 2023: I reassessed the patient, who showed mild improvement. 2100: I spoke with Dr. Valles, [facility] hospitalist, who agreed to further evaluate the patient. Consultations Consultation #1: I spoke with Dr. Valles, [facility] hospitalist, who agreed to further evaluate the patient. Time: 21:01 Administered Medications Azithromycin 500 mg/ Dextrose 255 mls @ 127.5 mls/hr IV TODAY@2300 [facility] Stop: 01/15/19 00:59 Last Admin: 01/14/19 23:15 Dose: 127.5 mls/hr Documented by: [id number] Miscellaneous (Remove Nicoderm Patch) 1 ea N/A HS [facility] Stop: 02/13/19 20:59 Last Admin: 01/14/19 22:28 Dose: Not Given Documented by: [id number] Discontinued Medications Acetaminophen (Tylenol) 1,000 mg PO NOW STA Stop: 01/14/19 20:23 Last Admin: 01/14/19 20:49 Dose: 1,000 mg Documented by: [id number] Albuterol (Duoneb) 12 ml INH ONE STA Stop: 01/14/19 18:43 Last Admin: 01/14/19 19:06 Dose: 12 ml Documented by: [id number] Sodium Chloride (Nss) 500 mls @ 999 mls/hr IV .Q31M TREVIN Stop: 01/14/19 19:15 Last Infusion: 01/14/19 20:11 Dose: 0 mls/hr Documented by: [id number] Admin: 01/14/19 19:00 Dose: 999 mls/hr Documented by: [id number] Ketorolac Tromethamine (Toradol) 15 mg IV NOW STA Stop: 01/14/19 20:23 Last Admin: 01/14/19 20:50 Dose: 15 mg Documented by: [id number] Methylprednisolone (Solumedrol) 125 mg IV NOW STA Stop: 01/14/19 18:43 Last Admin: 01/14/19 19:00 Dose: 125 mg Documented by: [id number] Medical Decision Making Differential Diagnosis Differential diagnosis includes: infections, reactive airway disease, pneumonia, pneumothorax, COPD, CHF, cardiac ischemia, pulmonary embolism, musculoskeletal, gastrointestinal, as well as others were entertained. Medical Records Attestation: I reviewed the patient's medical records. Home Medications Current Medication List: was personally reviewed by me Laboratory Data Attestation: I reviewed the patient's lab results. Result diagrams: 01/14/19 18:44 01/14/19 18:44 Lab Results 01/14/19 01/14/19 01/14/19 Range/Units 18:44 18:44 18:44 WBC 6.66 (4.8-10.8) K/uL RBC 4.90 (4.7-6.1) M/uL Hgb 15.1 (14.0-18.0) g/dL Hct 43.7 (42-52) % MCV 89.2 (80-100) fL MCH 30.8 (25-34) pg MCHC 34.6 (32-36) g/dL RDW Std Deviation 46.0 (36.4-46.3) fL RDW Coeff of Ny 14.0 (11.5-14.5) % Plt Count 151 (130-400) K/uL MPV 11.2 H (7.4-10.4) fL Immature Gran % (Auto) 0.2 % Neut % (Auto) 72.1 % Lymph % (Auto) 16.2 % Harney % (Auto) 9.3 % Eos % (Auto) 1.7 % Baso % (Auto) 0.5 % Immature Gran # (Auto) 0.01 (0.00-0.02) K/uL Neut # (Auto) 4.81 (1.4-6.5) K/uL Lymph # (Auto) 1.08 L (1.2-3.4) K/uL Harney # (Auto) 0.62 H (0.11-0.59) K/uL Eos # (Auto) 0.11 (0-0.5) K/uL Baso # (Auto) 0.03 (0-0.2) K/uL PT 9.9 (9.0-12.0) Seconds INR 1.0 (0.9-1.1) APTT 25.5 (21.0-31.0) Seconds PTT Ratio 0.9 Sodium 136 (136-145) mmol/L Potassium 4.0 (3.5-5.1) mmol/L Chloride 103 (98-107) mmol/L Carbon Dioxide 26 (21-32) mmol/L Anion Gap 7.0 (3-11) BUN 11 (7-18) mg/dl Creatinine 0.91 (0.6-1.4) mg/dl Est Cr Clr Drug Dosing 85.6 ml/min Est GFR ( Amer) 107.3 Est GFR (Non-Af Amer) 92.6 BUN/Creatinine Ratio 12.5 (10-20) Glucose 82 (70-99) mg/dl Calcium 8.6 (8.5-10.1) mg/dl Magnesium 1.9 (1.8-2.4) mg/dl Total Bilirubin 0.5 (0.2-1) mg/dl AST 14 L (15-37) U/L ALT 16 (12-78) U/L Alkaline Phosphatase 67 (45-117) U/L Troponin I < 0.015 (0-0.045) ng/ml Total Protein 6.9 (6.4-8.2) gm/dl Albumin 3.5 (3.4-5.0) gm/dl Globulin 3.4 (2.5-4.0) gm/dl Albumin/Globulin Ratio 1.0 (0.9-2) Influenza Type A (PCR) (Neg) Influenza Type B (PCR) (Neg) 01/14/19 Range/Units 19:00 WBC (4.8-10.8) K/uL RBC (4.7-6.1) M/uL Hgb (14.0-18.0) g/dL Hct (42-52) % MCV (80-100) fL MCH (25-34) pg MCHC (32-36) g/dL RDW Std Deviation (36.4-46.3) fL RDW Coeff of Ny (11.5-14.5) % Plt Count (130-400) K/uL MPV (7.4-10.4) fL Immature Gran % (Auto) % Neut % (Auto) % Lymph % (Auto) % Harney % (Auto) % Eos % (Auto) % Baso % (Auto) % Immature Gran # (Auto) (0.00-0.02) K/uL Neut # (Auto) (1.4-6.5) K/uL Lymph # (Auto) (1.2-3.4) K/uL Harney # (Auto) (0.11-0.59) K/uL Eos # (Auto) (0-0.5) K/uL Baso # (Auto) (0-0.2) K/uL PT (9.0-12.0) Seconds INR (0.9-1.1) APTT (21.0-31.0) Seconds PTT Ratio Sodium (136-145) mmol/L Potassium (3.5-5.1) mmol/L Chloride (98-107) mmol/L Carbon Dioxide (21-32) mmol/L Anion Gap (3-11) BUN (7-18) mg/dl Creatinine (0.6-1.4) mg/dl Est Cr Clr Drug Dosing ml/min Est GFR ( Amer) Est GFR (Non-Af Amer) BUN/Creatinine Ratio (10-20) Glucose (70-99) mg/dl Calcium (8.5-10.1) mg/dl Magnesium (1.8-2.4) mg/dl Total Bilirubin (0.2-1) mg/dl AST (15-37) U/L ALT (12-78) U/L Alkaline Phosphatase (45-117) U/L Troponin I (0-0.045) ng/ml Total Protein (6.4-8.2) gm/dl Albumin (3.4-5.0) gm/dl Globulin (2.5-4.0) gm/dl Albumin/Globulin Ratio (0.9-2) Influenza Type A (PCR) Neg for Influ A (Neg) Influenza Type B (PCR) Neg for Influ B (Neg) Imaging Data Radiologist's Impression: Radiology results as stated below per my review and the radiologist's interpretation: XR chest 1V portable CLINICAL HISTORY: 58 years-old Male presenting with Dyspnea. TECHNIQUE: Portable upright AP view of the chest was obtained. COMPARISON: 11/03/2018. FINDINGS: Cardiac silhouette top normal in size. Lungs are hyperinflated. No focal opacity. No pleural effusion or pneumothorax. Osseous structures normal. Upper abdomen normal. IMPRESSION: 1. Hyperinflation could be due to inspiratory effort or indicate underlying emphysema or other obstructive lung disease. No focal infiltrate to suggest pneumonia. Electronically signed by: Jarad Michaels M.D. 01/14/2019 6:56 PM ECG Data Attestation: I personally reviewed and interpreted this ECG as follows: Indication: SOB/dyspnea Rate (beats per minute): 75 Rhythm: normal sinus Findings: + other (Sinus arrythmia right axis) and + RBBB (incomplete); no PVC, no ST depression and no ST elevation Blood Pressure Blood Pressure Findings: Normal blood pressure Blood Pressure Disposition: did not require urgent referral MDM Narrative Patient is a 58-year-old gentleman with a history of hypertension, hyperlipidemia, CHF, COPD, CAD, and migraine presenting today complaining of 1 day of some cough and shortness of breath. Not acutely hypoxic here or febrile. Some diffuse myalgias. Benign abdomen. Does not feel like prior CAD. Diffusely wheezy on exam. Believe there is possible component of COPD underlying this. Concern for possible pneumonia. Low suspicion this dissection. EKG and troponin completed to help exclude CAD/acute ACS. Given steroids and DuoNeb here. X-ray obtained some hyperinflation without evidence of pneumonia. Influenza testing sent and negative. No leukocytosis noted on labs or electrolyte abnormalities. Given his significant wheeze and cough complaint believe this unlikely to be PE. Patient did have some transient desaturations after this and while respiratory status was slightly improved and increased air movement still with wheeze. Discussed with him admission for COPD exacerbation and he was in agreement. Hospitalist contacted. Transient desaturation on room air after nebulizer treatment noted here. Impression & Plan COPD exacerbation Discharge Plan Visit Data *Final* Discharge Date/Time: 01/14/19 21:55 Chief Complaint: Shortness of Breath/Dyspnea Stated Complaint: COUGH, SHORTNESS OF BREATH, BACK HURTS ED Provider: Brett Self Discharge Problem: COPD exacerbation Patient Disposition: Admitted As Inpatient Discharge Instructions Interventions: ED Discharge Assessment Last Done: 01/14/19 21:55 The percy's documentation has been prepared under my direction and personally reviewed by me in its entirety. I confirm that the note above accurately reflects all work, treatment, procedures, and medical decision making performed by me.
[2019-01-15] MEDS: LEVALBUTEROL HCL 1.25 MG/3 ML NEB NEB SCH ×2 (01:31→07:37)
[2019-01-15 05:33] LABS: Basophils # (auto) 0.01 K/uL (0-0.2); Basophils % (auto) 0.2 %; Hematocrit (blood only) 41.9 % (42-52); Hemoglobin 14.2 g/dL (14.0-18.0); Immature Granulocytes # (auto) 0.01 K/uL (0.00-0.02); Immature Granulocytes % (auto) 0.2 %; Lymphocytes # (auto) 0.39 K/uL (1.2-3.4); Lymphocytes % (auto) 7.8 %; Mean Corpuscular Hemoglobin 30.3 pg (25-34); Mean Corpuscular Hgb Conc 33.9 g/dL (32-36); Mean Corpuscular Volume 89.3 fL (80-100); Mean Platelet Volume 11.3 fL (7.4-10.4); Monocytes # (auto) 0.16 K/uL (0.11-0.59); Monocytes % (auto) 3.2 %; Neutrophils # (auto) 4.44 K/uL (1.4-6.5); Neutrophils % (auto) 88.6 %; Platelet Count 150 K/uL (130-400); RDW Coefficient of Variation 14.1 % (11.5-14.5); RDW Standard Deviation 46.2 fL (36.4-46.3); Red Blood Count 4.69 M/uL (4.7-6.1); White Blood Count 5.01 K/uL (4.8-10.8)
[2019-01-15 05:55] LABS: Albumin Level 3.2 gm/dl (3.4-5.0); BUN Creatinine Ratio 15.2 (10-20); Calcium 8.7 mg/dl (8.5-10.1); Creatinine Clr Calc Pharmacy 62.8 ml/min; Est GFR (African American) 73.8; Est GFR (Non-African American) 63.7; Potassium 4.1 mmol/L (3.5-5.1)
[2019-01-15 05:57] LABS: Bilirubin,Total 0.3 mg/dl (0.2-1); Globulin 3.3 gm/dl (2.5-4.0); Total Protein 6.5 gm/dl (6.4-8.2)
[2019-01-15] MEDS ORDERED: methylPREDNISolone 60 MG in SYRINGE 0 ML IV SCH (06:00)
[2019-01-15] MEDS ORDERED: LACTOBACILLUS ACIDOPHILUS 1 GM PACK PO SCH (08:00)
[2019-01-15] MEDS ORDERED: CITALOPRAM 40 MG TAB PO SCH (09:00)
[2019-01-15] MEDS ORDERED: ASPIRIN 81 MG ECTAB PO SCH (09:00)
[2019-01-15] MEDS ORDERED: HEPARIN SOD 5,000 UNIT/0.5 ML VIAL SQ SCH (09:00)
[2019-01-15] MEDS ORDERED: METOPROLOL TARTRATE 25 MG TAB PO SCH (09:00)
[2019-01-15] MEDS ORDERED: NICOTINE 14 MG/24 HR PATCH TD SCH (09:00)
[2019-01-15] MEDS ORDERED: predniSONE 20 MG TAB PO STA (09:31)
--- NOTE | 2019-01-15 09:45 | Discharge Summary ---
Date of Service January 15, 2019 Admission HPI Per Admitting Provider 58 yo M with PMH CAD w/ h/o stent x 1, and COPD who presents with 2 days worsening shortness of breath and cough. Says he began to feel chills and feeling unwell two days ago, decreased PO appetite. Increasing cough today and worsening shortness of breath associated with chest tightness. In ED required 3L via NC. Given solumedrol and duoneb treatments. Of note, pt is noncompliant with advair, albuterol ("makes my heart race") and smokes 1 PPD since age 26. 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 PMH 1. CAD with BM stent x1 2012, repeat cath 2016 showed mild/nonobstructive CAD 2. COPD 3. depression 4. HTN PSH 1. polypectomy ENT 2. cath stents as above I personally interviewed and examined the patient. I agree with history of present illness and physical exam mentioned above, I also performed my own history taking and examination. Past medical history and review of system has been obtained by myself I reviewed all pertinent labs and studies Reviewed current medications I discussed and formulated of the assessment and plan mentioned above. Please refer to the Summary mentioned below. 58-year-old man smoker with history of coronary artery disease status post PCI and stenting, COPD presented to the hospital with severe shortness of breath and productive cough was found to have hypoxia required CO2 supplement in the ED. No pneumonia detected on x-ray but possibly bronchitis by history. Acute respiratory failure with hypoxia COPD exacerbation Bacterial bronchitis Start patient on bronchodilators/steroids Azithromycin for bronchitis Ordered an EKG Morning hospitalist to repeat EKG rule out QTC prolongation. Physical examination General patient appears to be comfortable, not in acute distress HEENT: Atraumatic , normocephalic /no jaundice /no pallor /anicteric /no dry mucous membrane /normal external ear inspection Neck: Supple /no swelling /central trach Heart: S1/S2 normal/regular rate and rhythm/no gallop /no rub /no murmur Lungs: Decreased air entry bilaterally, generalized wheezing both lung burgos, scattered rhonchi, no chest wall tenderness Abdomen: Soft/nontender/no guarding/no rebound/no organomegaly/no pulsatile mass Musculoskeletal: No swelling/no edema/no tenderness/normal range of motion Neuro exam: Awake alert oriented 3/cranial nerves II through XII appear to be intact/sensation intact/moves all extremities/no abnormal movements Psychiatric evaluation: No depressed mood/normal affect Skin: No rash on exposed skin area/no erythema Extremity: Normal pulse/no pitting edema/no clubbing or cyanosis Endocrine/lymphatic: No obvious lymphadenopathy /no lymphedema Helene Balbuena MD, [facility] Principal Diagnosis COPD exacerbation Discharge Exam Constitutional WD/WN, vitals as above Eyes PERRL, conjunctivae normal, anicteric sclerae ENMT external ear and nose normal, oropharynx normal Neck trachea midline, no thyromegaly Respiratory normal respiratory effort, lungs clear to auscultation Cardiovascular RRR, no murmur, no edema Gastrointestinal (Abdomen) normal bowel sounds, soft, nontender, no hepatosplenomegaly Musculoskeletal no cyanosis or clubbing, extremities motor strength 5/5 Skin no rashes, warm and dry Neurologic patellar DTR's 2+ bilat, sensation intact and PERRL, EOMI, accommodation nl, no face palsy, no dysarthria Psychiatric A+Ox3, euthymic affect Lymphatic no cervical or axillary lymphadenopathy Discharge Data Allergies Allergy/AdvReac Type Severity Reaction Status Date / Time Iodinated Contrast Media Allergy Severe HIVES Verified 11/04/18 00:39 atorvastatin AdvReac Intermediate FATIQUE, Verified 11/04/18 00:41 OVER TIRED. 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 Hospital Course (1) COPD exacerbation: responded well to Solu Medrol IV no wheezing on exam this morning, no distress, breathing room air no fever or chills, has a dry cough, no evidence of infiltrate on CXR in the ED will d/c home on Prednisone 60mg x 2 days, 40mg x 2 days, 20mg x 2 days resume Spiriva and Advair which he was prescribed in the past but stopped taking encouraged smoking cessation, provided with nicotine patch, he knows to talk with PCP about alternatives such as Chantix again, no evidence of purulence so there is no need for abx on telephone clerks supervisor navigator bhavna help set up PCP follow up and referral to pulmonology would benefit from PFT as outpatient in 4-6 weeks once his lungs are recovered from exacerbation (2) Stented coronary artery: no chest pain or pressure no exertional angina continue aspirin, metoprolol (3) Benign essential hypertension: BP stable on home regimen (4) Depression: Celexa, mood stable (5) Tobacco abuse: patient is committed to quitting he says he quit in 2012 after his stent was placed, quit for 5 months difficult because his smokes, encouraged him to speak with her about quitting as well provided with nicotine patch can follow up with PCP Total Time Total Time Spent Total Time Spent (In Minutes): 35 minutes Total Time Includes: Examination of the Patient, Discharge Planning, Medication Reconciliation and Other (prolonged time spent with patient educations on smoking cessation, COPD management) Discharge Plan Discharge Items Patient Disposition: Home - Self-Care Reason For Visit: COPD EXACERBATION Discharge Diagnosis: COPD exacerbation Condition on Discharge: Good Health Concerns: - need to stop smoking - need to follow up with a PCP and referral to pulmonology Goals: - improve disease control, ie COPD - stop smoking Activity: Resume your previous activity Non-emergency contact: Primary Care Provider Call non-emergency contact if: you have any medication questions, your symptoms worsen and you have a fever Follow-up/Referrals: Braeden Goff III, MD [Primary Care Provider] - Diet: Heart Healthy Addtl Attending Provider Instructions: Medications: - PREDNISONE: taper as follows, starting tomorrow AM, take 60mg (3 tablets) kailyn ly x 2 days, 40mg daily x 2 days, 20mg daily x 2 days and stop - ALBUTEROL: rescue inhaler, for the next 4-5 days take scheduled 3 times a day while awake, every 6 hours, can use in between as needed after 4-5 days you can just use as needed - SPIRIVA: this is maintenance inhaler that you were prescribed before, you should use this once a day every day even if your breathing is stable, maintains lung function - ADVAIR: this is also maintenance inhaler, use twice a day, maintains lung function - NICOTINE PATCH: use 7mcg patch once a day for 2 weeks then stop, do not smoke while on the patch some of these medications may be expensive, copay too high, important medications to fill at this time are the Prednisone, Albuterol, Nicotine patch try to fill the Spiriva and the Advair but if you can only afford one of them that is okay COPD exacerbation: improved quickly with steroids and nebulizer treatments titrated off of oxygen complete Prednisone at home, use Albuterol as prescribed fill prescriptions for Spiriva and Advair and use every day stop smoking as this will help prevent further disease progression, decrease risk of hospitalization, decrease risk of lung cancer I have sent a message to my nurse navigator to call you Thursday about setting up new PCP and referral to pulmonary services as outpatient you should follow with a computer systems architect and you should get pulmonary function testing in a few weeks to see how severe your COPD has become Pending Studies at Discharge: No Stand-Alone Forms: My [facility] Medications and DC Order Prescriptions: New prednisone 20 mg tablet 60 mg PO UD Qty: 12 RF: 0 Spiriva with HandiHaler 18 mcg capsule, w/inhalation device 1 cap INH DAILY 30 Days Qty: 30 RF: 1 fluticasone propion-salmeterol [Advair Diskus] 250-50 mcg/dose blister with device 1 puffs INH Q12H Qty: 60 RF: 1 albuterol sulfate [ProAir HFA] 90 mcg/actuation HFA aerosol inhaler 1 puffs INH Q6H PRN (Reason: shortness of breath or wheezing) Qty: 8 RF: 1 nicotine 7 mg/24 hr patch 24 hour 1 patch TD DAILY 14 Days Qty: 14 RF: 0 Continued citalopram 40 mg tablet 40 mg PO QAM Qty: 90 RF: 0 aspirin [Aspirin Low Dose] 81 mg Tablet,Delayed Release (Dr/Ec) 81 mg PO QAM RF: 0 metoprolol tartrate 25 mg Tablet 12.5 mg PO BID RF: 0 ibuprofen 200 mg Tablet 400 mg PO QID PRN (Reason: Pain) RF: 0 Discharge Orders: Discharge Order (Routine); Ordered 01/15/19 Ordered By: Trenton Calixto Admission Data Admit Date/Time: 01/14/19 21:35 Attending Provider: Trenton Calixto Admit Provider: Vicenta Serrano Primary Care Provider: Braeden Goff III Other Providers: Helene Marsh
== END 2019-01-15 10:30 | disposition home or self-care (01) | DRG 192 ==
LOC: ED 18:07 → SUATTDRO 21:35 → 4W 21:35

== ENCOUNTER 2019-06-18 22:11 | Observation (INO) ==
[2019-06-18] MEDS ORDERED: ALBUT/IPRATROP 3MG/0.5MG NEB 3 ML VIAL NEB STA (22:35)
[2019-06-18] MEDS ORDERED: SODIUM CHLORIDE 0.9% 1000ML 1,000 ML IV SCH (22:45)
[2019-06-18 22:54] LABS: Hematocrit (blood only) 45.4 % (42-52); Hemoglobin 15.9 g/dL (14.0-18.0); Immature Granulocytes # (auto) 0.01 K/uL (0.00-0.02); Immature Granulocytes % (auto) 0.1 %; Lymphocytes # (auto) 0.99 K/uL (1.2-3.4); Mean Corpuscular Hemoglobin 31.2 pg (25-34); Mean Corpuscular Volume 89.2 fL (80-100); Mean Platelet Volume 11.5 fL (7.4-10.4); Monocytes # (auto) 1.02 K/uL (0.11-0.59); Monocytes % (auto) 11.3 %; Neutrophils # (auto) 6.97 K/uL (1.4-6.5); Neutrophils % (auto) 77.6 %; Platelet Count 158 K/uL (130-400); RDW Coefficient of Variation 13.8 % (11.5-14.5); RDW Standard Deviation 45.5 fL (36.4-46.3); Red Blood Count 5.09 M/uL (4.7-6.1); White Blood Count 8.99 K/uL (4.8-10.8)
[2019-06-18 23:04] LABS: Partial Thromboplastin Time 26.5 Seconds (21.0-31.0); Prothrombin Time 10.2 Seconds (9.0-12.0)
--- NOTE | 2019-06-18 23:06 | Emergency Department Note ---
History of Present Illness General Chief complaint: Respiratory Problems Stated complaint: CHEST IS TIGHT,CANT BREATHE VERY EASY,CHILLS Time Seen by Provider: 06/18/19 22:27 History of Present Illness This is a 59-year-old male that presents to the emergency department via private vehicle with complaints of "chest is tight, cannot breathe very easy, chills". The patient states that he feels like he has pneumonia. He notes a history of COPD as well as CA with stent placement. He states that 3 days ago he began with chills, cough and then sensation as if he could not breathe. Symptoms are worse at nighttime. He states that yesterday he was seen by the PCP and given IM dexamethasone and was discharged home on p.o. prednisone, as well as doxycycline. He states he had a flu swab which was negative. He stopped smoking 3 weeks ago. He notes a significant tightness in the chest. When asked if this feels similar to his previous CA he states that it is somewhat similar but there are some differences such as the fever and chills. The CA was in 2012 with stent placement. Home Medications Home Medications Medication Instructions Recorded Confirmed Type aspirin [Aspirin Low Dose] 81 mg PO 3XWK 01/14/18 06/18/19 History metoprolol tartrate 12.5 mg PO BID 01/14/18 06/18/19 History ibuprofen 400 mg PO QID PRN 06/25/18 06/18/19 History Unknown Rx Inhaler 1 puff INHALATION DAILY PRN 06/18/19 06/18/19 History doxycycline hyclate 100 mg PO BID 06/18/19 06/18/19 History escitalopram oxalate 10 mg PO DAILY 06/18/19 06/18/19 History prednisone 0 mg PO .DAILY/UD 06/18/19 06/18/19 History rosuvastatin 10 mg PO DAILY 06/18/19 06/18/19 History Allergies Allergy/AdvReac Type Severity Reaction Status Date / Time Iodinated Contrast Media Allergy Severe HIVES Verified 06/18/19 23:57 atorvastatin AdvReac Intermediate FATIQUE, Verified 06/18/19 23:57 OVER TIRED. Past Med/Surg History Medical History Anxiety Benign essential hypertension (Chronic) Chronic obstructive pulmonary disease INHALER PRN Congestive heart failure Depression (Chronic) Diabetes History of prostate cancer Hyperlipidemia REFUSING MEDS Hypertension Migraine Myocardial Infarction 10/2012---LEFT ARM NUMB, SOB--FOLLOWS WITH DR. OROZCO Pneumonia (11/17/12) Tobacco abuse (Chronic) Surgical History History of bronchoscopy 2016 @ [facility] DR. 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 Required: No Beliefs That Will Affect Care: None Current Living Situation: Family Current Living Situation Comment: LIVES WITH AND SON Other Information That Helps Us Care for You: No Feels Safe at Home: No Is there a partner from a previous relationship who is making you feel unsafe now?: No Any Concerns about Your Family Situation: No Would You Like to Speak to Someone About Your Situation: No Safety Concerns: Feels Safe At This Time Smoking Status: Former smoker Tobacco Type: cigarettes ; packs per day: 1.5 ; Cigarettes Per Day: 20 ; Do You Dip or Chew Tobacco: No ; Number of Years Since Quit: 13 ; Second Hand Exposure: Yes ; Tobacco Cessation Education Requested by Patient: Yes (MD ordered) Hx Alcohol Use: Yes Hx Substance Use: No Review of Systems A total of 10 systems reviewed and were otherwise negative Physical Exam Vital Signs Vital Signs - 24 hr 06/18/19 22:14 06/18/19 22:41 06/18/19 22:47 Temperature 37.4 C Temperature Source Oral Pulse Rate 78 Pulse Rate [Exercises] Pulse Rate [Finger] 87 Respiratory Rate 18 24 Respiratory Rate [Exercises] Respiratory Effort / Characteristics Spontaneous Blood Pressure 131/85 Blood Pressure [Left Arm] Blood Pressure Mean 100 Blood Pressure Mean [Left Arm] Blood Pressure Position Sitting Pulse Oximetry 93 94 91 Pulse Oximetry [Exercises] Oxygen Delivery Method Room Air Room Air Room Air Sepsis Recent Fever Within 48 Hours No Sepsis New/Unexplained Change in Mental Status No Sepsis Action Taken by Nursing No Action Required 06/18/19 23:03 06/19/19 00:00 06/19/19 00:30 Temperature Temperature Source Pulse Rate 80 79 Pulse Rate [Exercises] Pulse Rate [Finger] Respiratory Rate 24 22 24 Respiratory Rate [Exercises] Respiratory Effort / Characteristics Blood Pressure 140/78 130/76 Blood Pressure [Left Arm] 137/77 Blood Pressure Mean 94 99 Blood Pressure Mean [Left Arm] 97 Blood Pressure Position Pulse Oximetry 96 94 94 Pulse Oximetry [Exercises] Oxygen Delivery Method Room Air Sepsis Recent Fever Within 48 Hours Sepsis New/Unexplained Change in Mental Status Sepsis Action Taken by Nursing 06/19/19 00:44 06/19/19 00:54 06/19/19 01:00 Temperature 38.0 C H Temperature Source Oral Pulse Rate 78 Pulse Rate [Exercises] 90 Pulse Rate [Finger] 77 Respiratory Rate 22 23 Respiratory Rate [Exercises] 18 Respiratory Effort / Characteristics Blood Pressure 123/75 Blood Pressure [Left Arm] 130/76 Blood Pressure Mean 95 Blood Pressure Mean [Left Arm] 94 Blood Pressure Position Pulse Oximetry 95 95 Pulse Oximetry [Exercises] 93 Oxygen Delivery Method Room Air Room Air Sepsis Recent Fever Within 48 Hours Sepsis New/Unexplained Change in Mental Status Sepsis Action Taken by Nursing 06/19/19 01:30 06/19/19 02:00 Temperature Temperature Source Pulse Rate 80 96 H Pulse Rate [Exercises] Pulse Rate [Finger] 77 Respiratory Rate 20 24 Respiratory Rate [Exercises] Respiratory Effort / Characteristics Spontaneous Blood Pressure 129/77 107/50 L Blood Pressure [Left Arm] Blood Pressure Mean 84 60 Blood Pressure Mean [Left Arm] Blood Pressure Position Pulse Oximetry 100 97 Pulse Oximetry [Exercises] Oxygen Delivery Method Room Air Sepsis Recent Fever Within 48 Hours Sepsis New/Unexplained Change in Mental Status Sepsis Action Taken by Nursing VITAL SIGNS - Vital signs and nursing notes were reviewed. Stable and afebrile. GENERAL - 59-year-old male appearing his stated age who is in no acute distress. Communicates well with provider and answers questions appropriately. SKIN - Without rashes. No meningeal or petechial rash. HEAD - NC/AT. EYES - PERRL with EOMI bilaterally. Sclera anicteric. EARS - No deformities of external structures noted on gross examination bilaterally. External auditory canals without discharge or otorrhea. Tympanic membranes pearly swenson without retraction or bulging. No fluid or purulent material visualized behind the TM. Handle of malleus, umbo, cone of light, pars tensa/flaccid all easily visualized. NOSE - Midline and without cyanosis. No epistaxis or purulent drainage noted. Septum midline without deviation or septal hematoma noted. MOUTH/OROPHARYNX - Without perioral cyanosis. Buccal mucosa pink and moist and without leukoplakia. Tongue midline with equal elevation of palate bilaterally. No tonsillar hypertrophy, erythema, or exudates noted. Fair dentition noted. NECK - Neck with FROM. Supple to palpation. No lymphadenopathy noted. No nuchal rigidity. LUNGS - Chest wall symmetric without accessory muscle use, intercostals retractions, or central cyanosis. Mild wheezing bilaterally. CARDIAC - RRR with S1/S2. No murmur, rubs, or gallops appreciated. ABDOMEN - Abdominal contour normal without pulsations or visible masses. BS normoactive all four quadrants. No tenderness, palpable masses, hepatosplenomegaly, or ascites noted. EXTREMITIES - No clubbing or peripheral cyanosis. No pretibial edema present. +5/5 strength noted in UE/LE bilaterally. NEUROLOGIC - Cranial nerves II through XII grossly intact. Sensory intact to light touch throughout. PSYCH - A&O, and cooperates fully with examiner. Pt is very pleasant and interacts well with examiner. Course Administered Medications Albuterol (Duoneb) 3 ml NEB QIDR TREVIN Stop: 07/19/19 06:59 Last Admin: 06/19/19 06:37 Dose: 3 ml Documented by: [id number] Enoxaparin Sodium (Lovenox) 40 mg SQ Q24H TREVIN Stop: 07/19/19 08:59 Last Admin: 06/19/19 08:14 Dose: 40 mg Documented by: [id number] Escitalopram Oxalate (Lexapro Tab) 10 mg PO DAILY TREVIN Stop: 07/19/19 08:59 Last Admin: 06/19/19 08:13 Dose: 10 mg Documented by: [id number] Fexofenadine HCl (Caroline) 180 mg PO QAM TREVIN Stop: 07/19/19 08:59 Last Admin: 06/19/19 08:13 Dose: 180 mg Documented by: [id number] Metoprolol Tartrate (Lopressor) 12.5 mg PO BID TREVIN Stop: 07/19/19 08:59 Last Admin: 06/19/19 08:13 Dose: 12.5 mg Documented by: [id number] [facility] Cq) [facility] [facility]: 07/19/19 08:59 Last Admin: 06/19/19 08:13 Dose: 14 mg Documented by: [id number] Oseltamivir Phosphate (Tamiflu) 75 mg PO BID [facility]; Protocol Stop: 06/24/19 08:59 Last Admin: 06/19/19 08:13 Dose: 75 mg Documented by: [id number] Polyethylene Glycol (Miralax Powder Packet) 17 gm PO BID [facility] Stop: 07/19/19 08:59 Last Admin: 06/19/19 08:13 Dose: Not Given Documented by: [id number] Prednisone (Prednisone) 60 mg PO DAILY [facility]; Taper Stop: 07/01/19 08:59 Last Admin: 06/19/19 08:13 Dose: 60 mg Documented by: [id number] Rosuvastatin Calcium (Crestor) 10 mg PO DAILY [facility] Stop: 07/19/19 08:59 Last Admin: 06/19/19 08:13 Dose: 10 mg Documented by: [id number] Umeclidinium [place] (Incruse Ellipta) 1 puffs INH [facility] Stop: 07/19/19 08:59 Last Admin: 06/19/19 08:14 Dose: 1 puffs Documented by: [id number] Discontinued Medications Acetaminophen (Tylenol) 650 mg PO NOW STA Stop: 06/19/19 01:15 Last Admin: 06/19/19 01:24 Dose: 650 mg Documented by: [id number] Albuterol (Duoneb) 3 ml NEB NOW STA Stop: 06/18/19 22:36 Last Admin: 06/18/19 22:47 Dose: 3 ml Documented by: [id number] Albuterol (Duoneb) 12 ml NEB ONE ONE Stop: 06/19/19 01:15 Last Admin: 06/19/19 01:30 Dose: 12 ml Documented by: [id number] Guaifenesin (Mucinex) 600 mg PO NOW STA Stop: 06/19/19 01:15 Last Admin: 06/19/19 01:24 Dose: 600 mg Documented by: [id number] Sodium Chloride (Nss 1000ml) 1,000 mls @ 999 mls/hr IV .Q1H1M [facility] Stop: 06/18/19 23:45 Last Infusion: 06/18/19 23:37 Dose: 0 mls/hr Documented by: [id number] Admin: 06/18/19 22:42 Dose: 999 mls/hr Documented by: [id number] Sodium Chloride (Nss 1000ml) 1,000 mls @ 999 mls/hr IV .Q1H1M [facility] Stop: 06/19/19 01:45 Last Infusion: 06/19/19 01:54 Dose: 0 mls/hr Documented by: [id number] Admin: 06/19/19 00:43 Dose: 999 mls/hr Documented by: [id number] Magnesium Sulfate/Dextrose (Magnesium Sulfate / D5w) 1 gm in 100 mls @ 100 mls/hr IV ONE ONE Stop: 06/19/19 01:32 Last Infusion: 06/19/19 01:54 Dose: 0 mls/hr Documented by: [id number] Admin: 06/19/19 00:43 Dose: 100 mls/hr Documented by: [id number] Ketorolac Tromethamine (Toradol) 15 mg IV NOW STA Stop: 06/19/19 01:15 Last Admin: 06/19/19 01:24 Dose: 15 mg Documented by: [id number] Methylprednisolone (Solumedrol) 125 mg IV NOW STA Stop: 06/19/19 01:15 Last Admin: 06/19/19 01:24 Dose: 125 mg Documented by: [id number] Medical Decision Making Laboratory Data Result diagrams: 06/18/19 22:40 06/18/19 22:40 Lab Results 06/18/19 06/18/19 06/18/19 Range/Units 22:40 22:40 22:40 WBC 8.99 (4.8-10.8) K/uL RBC 5.09 (4.7-6.1) M/uL Hgb 15.9 (14.0-18.0) g/dL Hct 45.4 (42-52) % MCV 89.2 (80-100) fL MCH 31.2 (25-34) pg MCHC 35.0 (32-36) g/dL RDW Std Deviation 45.5 (36.4-46.3) fL RDW Coeff of Ny 13.8 (11.5-14.5) % Plt Count 158 (130-400) K/uL MPV 11.5 H (7.4-10.4) fL Immature Gran % (Auto) 0.1 % Neut % (Auto) 77.6 % Lymph % (Auto) 11.0 % [place] % (Auto) 11.3 % Eos % (Auto) 0.0 % Baso % (Auto) 0.0 % Immature Gran # (Auto) 0.01 (0.00-0.02) K/uL Neut # (Auto) 6.97 H (1.4-6.5) K/uL Lymph # (Auto) 0.99 L (1.2-3.4) K/uL [place] # (Auto) 1.02 H (0.11-0.59) K/uL Eos # (Auto) 0.00 (0-0.5) K/uL Baso # (Auto) 0.00 (0-0.2) K/uL PT 10.2 (9.0-12.0) Seconds INR 1.0 (0.9-1.1) APTT 26.5 (21.0-31.0) Seconds PTT Ratio 1.0 Sodium 133 L (136-145) mmol/L Potassium 4.0 (3.5-5.1) mmol/L Chloride 103 (98-107) mmol/L Carbon Dioxide 24 (21-32) mmol/L Anion Gap 7.0 (3-11) BUN 18 (7-18) mg/dl Creatinine 1.19 (0.6-1.4) mg/dl Est Cr Clr Drug Dosing 64.7 ml/min Est GFR ( Amer) 77.0 Est GFR (Non-Af Amer) 66.5 BUN/Creatinine Ratio 15.4 (10-20) Glucose 95 (70-99) mg/dl Calcium 8.8 (8.5-10.1) mg/dl Magnesium 1.5 L (1.8-2.4) mg/dl Total Bilirubin 0.3 (0.2-1) mg/dl AST 28 (15-37) U/L ALT 25 (12-78) U/L Alkaline Phosphatase 58 (45-117) U/L Troponin I 0.025 (0-0.045) ng/ml Total Protein 7.5 (6.4-8.2) gm/dl Albumin 3.8 (3.4-5.0) gm/dl Globulin 3.7 (2.5-4.0) gm/dl Albumin/Globulin Ratio 1.0 (0.9-2) Influenza Type A Ag (Neg) Influenza Type B Ag (Neg) 06/18/19 Range/Units 22:51 WBC (4.8-10.8) K/uL RBC (4.7-6.1) M/uL Hgb (14.0-18.0) g/dL Hct (42-52) % MCV (80-100) fL MCH (25-34) pg MCHC (32-36) g/dL RDW Std Deviation (36.4-46.3) fL RDW Coeff of Ny (11.5-14.5) % Plt Count (130-400) K/uL MPV (7.4-10.4) fL Immature Gran % (Auto) % Neut % (Auto) % Lymph % (Auto) % [place] % (Auto) % Eos % (Auto) % Baso % (Auto) % Immature Gran # (Auto) (0.00-0.02) K/uL Neut # (Auto) (1.4-6.5) K/uL Lymph # (Auto) (1.2-3.4) K/uL [place] # (Auto) (0.11-0.59) K/uL Eos # (Auto) (0-0.5) K/uL Baso # (Auto) (0-0.2) K/uL PT (9.0-12.0) Seconds INR (0.9-1.1) APTT (21.0-31.0) Seconds PTT Ratio Sodium (136-145) mmol/L Potassium (3.5-5.1) mmol/L Chloride (98-107) mmol/L Carbon Dioxide (21-32) mmol/L Anion Gap (3-11) BUN (7-18) mg/dl Creatinine (0.6-1.4) mg/dl Est Cr Clr Drug Dosing ml/min Est GFR ( Amer) Est GFR (Non-Af Amer) BUN/Creatinine Ratio (10-20) Glucose (70-99) mg/dl Calcium (8.5-10.1) mg/dl Magnesium (1.8-2.4) mg/dl Total Bilirubin (0.2-1) mg/dl AST (15-37) U/L ALT (12-78) U/L Alkaline Phosphatase (45-117) U/L Troponin I (0-0.045) ng/ml Total Protein (6.4-8.2) gm/dl Albumin (3.4-5.0) gm/dl Globulin (2.5-4.0) gm/dl Albumin/Globulin Ratio (0.9-2) Influenza Type A Ag Neg for Influ A (Neg) Influenza Type B Ag Pos for Influ B A* (Neg) Imaging Data My Impression: Negative chest x-ray. MDM Narrative Patient was seen and evaluated as above in room C 11. Review was performed of nursing notes and vital signs. After obtaining a thorough history and physical examination the above work up was performed. He presents to us today with some chest tightness, difficulty breathing and chills. This is likely influenza. IV access was established and labs were drawn. Chest x-ray negative per my interpretation. There is no leukocytosis or anemia. No emergent metabolic disturbance. Magnesium slightly low at 1.5. Positive for influenza B. Patient does have history of CA with stent placement as well as COPD. He stopped smoking about 3 weeks ago. Patient does seem to have some mild difficulty with breathing on exam but there is no stridor. While here he was medicated with IV fluids, magnesium followed by Tylenol, Toradol and DuoNeb. He was then reevaluated without much improvement. He was concerned about going home given the way he felt. His mother and father were also at bedside and in speaking with them and the patient they would prefer he stay in the hospital. He does not feel comfortable going home. I informed them that at this point his vital signs have been stable, and his labs were reassuring. He wanted to stay in the hospital. I will respect the patient wishes and did discuss the case with the attending physician as well as the hospitalist. It was recommended by the hospitalist to initiate steroids and in speaking with the attending physician decision was made to add Mucinex and an hour-long breathing treatment was also added. Patient will be admitted for further evaluation and management. Please refer to further documentation regarding his stay. Case was discussed with the attending physician. EKG was reviewed by myself and found to be Normal Sinus Rhythm at a rate of 75 beats per minute and per my interpretation reveals incomplete right bundle branch block, rightward axis, QTC 495. No ST elevation. In the evaluation and treatment of this patient, the following differential diagnoses were considered: CA, ASC, Dysrhythmia, Angina, Mediastinitis, GERD, Esophagitis, PE, Pneumonia, Bronchitis, Costochondritis, Rib Fracture, Zoster. Impression & Plan Influenza B, COPD exacerbation Discharge Plan Visit Data *Final* Discharge Date/Time: 06/19/19 02:36 Chief Complaint: Respiratory Problems Stated Complaint: CHEST IS TIGHT,CANT BREATHE VERY EASY,CHILLS ED Provider: [facility] ED Midlevel Provider: Dustin Lewis Discharge Problem: Influenza B, COPD exacerbation Patient Disposition: Admitted As Inpatient Discharge Instructions Interventions: ED Discharge Assessment Last Done: 06/19/19 02:36
[2019-06-18 23:15] LABS: Albumin Level 3.8 gm/dl (3.4-5.0); BUN Creatinine Ratio 15.4 (10-20); Calcium 8.8 mg/dl (8.5-10.1); Creatinine Clr Calc Pharmacy 64.7 ml/min; Est GFR (Non-African American) 66.5; Magnesium 1.5 mg/dl (1.8-2.4)
[2019-06-18 23:20] LABS: Bilirubin,Total 0.3 mg/dl (0.2-1); Globulin 3.7 gm/dl (2.5-4.0); Total Protein 7.5 gm/dl (6.4-8.2); Troponin I 0.025 ng/ml (0-0.045)
[2019-06-19] MEDS ORDERED: MAGNESIUM SULFATE / D5W 1 GM/100 ML BAG IV ONE (00:33)
[2019-06-19] MEDS ORDERED: SODIUM CHLORIDE 0.9% 1000ML 1,000 ML IV SCH (00:45)
[2019-06-19] MEDS ORDERED: ACETAMINOPHEN 325 MG TAB PO STA (01:14)
[2019-06-19] MEDS ORDERED: KETOROLAC TROMETHAMINE 15 MG/ML VIAL IV STA (01:14)
[2019-06-19] MEDS ORDERED: methylPREDNISolone 125 MG/2 ML VIAL IV STA (01:14)
[2019-06-19] MEDS ORDERED: ALBUT/IPRATROP 3MG/0.5MG NEB 3 ML VIAL NEB ONE (01:14)
[2019-06-19] MEDS ORDERED: guaiFENesin 600 MG TABCR PO STA (01:14)
--- NOTE | 2019-06-19 02:07 | History & Physical Report ---
Date of Service June 19, 2019 Assessment & Plan (1) Influenza B: Patient is a 59-year-old male with a past medical history of coronary artery disease status post stent placement in 2012, chronic sinusitis status post sinus surgery, hypertension, COPD not on home oxygen who presents for e valuation of respiratory difficulties and shortness of breath found to be positive for influenza B. #Influenza B There is a question as to when exactly the patient became symptomatic, therefore we will treat with Tamiflu. Additionally will provide supportive care with Tylenol, antihistamines, expectorants, decongestants along with prednisone. -Admit to obs Tamiflu Caroline Mucinex Sudafed -Stop doxycycline Prednisone taper p.o. starting with 60 mg x2 DAYS, 50 X 2 DAYS... PRN O2 as needed for saturation goal greater than 90 Flutter valve/incentive spirometry #COPD exacerbation in the setting of influenza B Patient with a history of COPD likely an exacerbation secondary to infection with influenza type B will provide of supportive care as indicated. PRN O2 saturation goal greater than 90 Prednisone taper as above DuoNebs every 6 hours -Spiriva daily #Chronic sinusitis Symptom management as above #Depression Continue home meds #Coronary artery disease Continue statin/asa #Hypertension Continue home metoprolol #Tobacco abuse -Nicotine patch provided FENa: Heart healthy diet Code Status: Full code DVT PPX: Lovenox PT/OT: Not indicated Dispo: Vineet Khan MD PGY 2, FCM This chart was completed utilizing [employer] voice recognition software. Grammatical errors, random word insertions, pronoun errors, and in complete sentences are an occasional consequence of the system. Any questions or concerns about the content, text, or information contained within the body of this dictation should be addressed directly to the physician for clarification. (2) Benign essential hypertension: (3) COPD exacerbation: (4) Chronic sinusitis: (5) Depression: (6) Tobacco abuse: History of Present Illness Primary Care Provider: NO PCP Patient is a 59-year-old male with a past medical history of coronary artery disease status post stent placement in 2012, chronic sinusitis status post sinus surgery, hypertension, COPD not on home oxygen who presents for evaluation of respiratory difficulties and shortness of breath. Per the patient his symptoms started approximately 2 days ago, they came on very suddenly and severe as if he had had been hit by a train. He saw his primary care provider at that time and swabbed him for the flu which was negative and gave him a course of doxycycline which he is currently taking. His symptoms did not improve with doxycycline, he was also using Tylenol for symptom management. Initially symptoms began as tightness in the chest with associated sweating, he would wake up at night and soaked through his closing of the bed, additionally had a nonproductive cough, shortness of breath, chest tightness, the patient denies significant bowel or bladder changes, chest pressure that he believes to be a cardiac origin, chest pain, nausea, vomiting. Patient reports the majority of his symptoms are currently now in his chest, he is denying upper respiratory symptoms. He states that his current symptoms are an 8 out of 10, and he is never had a cold this severe before. During the interview the patient was demonstrating increased work of breathing, receiving nebulizer treatment, in the ER his CBC was within normal limits, Chem-7 was within normal limits, CMP was within normal limits, he was positive for flu B,No cultures were obtained, he has been given mucinex ketorolac, albuterol, methyl Pred 125mg , Tylenol, and 2 L of saline in the ED. no acute concerns at present, all questions answered. 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 His son has a history of numerous cardiac surgeries and he is afraid that his son will get sick. The patient is a current smoker and continues to smoke despite numerous attempts by physicians to encourage him to quit. Allergies Allergy/AdvReac Type Severity Reaction Status Date / Time Iodinated Contrast Media Allergy Severe HIVES Verified 06/18/19 23:57 atorvastatin AdvReac Intermediate FATIQUE, Verified 06/18/19 23:57 OVER TIRED. Home Medications Home Medications Medication Instructions Recorded Confirmed Type aspirin [Aspirin Low Dose] 81 mg PO 3XWK 01/14/18 06/18/19 History metoprolol tartrate 12.5 mg PO BID 01/14/18 06/18/19 History ibuprofen 400 mg PO QID PRN 06/25/18 06/18/19 History doxycycline hyclate 100 mg PO BID 06/18/19 06/18/19 History escitalopram oxalate 10 mg PO DAILY 06/18/19 06/18/19 History rosuvastatin 10 mg PO DAILY 06/18/19 06/18/19 History albuterol sulfate [Ventolin HFA] 1 puffs INH Q6H PRN #18 gm 06/20/19 Rx nicotine 14 mg TRANSDERMAL QAM #30 patch 06/20/19 Rx oseltamivir 75 mg PO BID 4 Days #7 cap 06/20/19 Rx Past Med/Surg History Medical History Anxiety Benign essential hypertension (Chronic) Chronic obstructive pulmonary disease INHALER PRN Congestive heart failure Depression (Chronic) Diabetes History of prostate cancer Hyperlipidemia REFUSING MEDS Hypertension Migraine Myocardial Infarction 10/2012---LEFT ARM NUMB, SOB--FOLLOWS WITH DR. OROZCO Pneumonia (11/17/12) Tobacco abuse (Chronic) Surgical History History of bronchoscopy 2016 @ [facility] DR. 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 Beliefs That Will Affect Care: None Current Living Situation: Family Current Living Situation Comment: LIVES WITH AND SON Other Information That Helps Us Care for You: No Feels Safe at Home: No Is there a partner from a previous relationship who is making you feel unsafe now?: No Any Concerns about Your Family Situation: No Would You Like to Speak to Someone About Your Situation: No Safety Concerns: Feels Safe At This Time Smoking Status: Former smoker Tobacco Type: cigarettes ; packs per day: 1.5 ; Cigarettes Per Day: 20 ; Do You Dip or Chew Tobacco: No ; Number of Years Since Quit: 13 ; Second Hand Exposure: Yes ; Tobacco Cessation Education Requested by Patient: Yes (MD ordered) Hx Alcohol Use: Yes Hx Substance Use: No Physical Exam Physical Exam: General: Lying in bed with increased work of breathing HEENT: Normocephalic atraumatic Neck: No significant lymphadenopathy, trachea midline, normal to visual inspection Cardiac: Regular rate and rhythm, normal S1, normal S2, I did not appreciated any significant murmurs rubs or gallops, I did not appreciate any significant pedal edema, No calf tenderness, capillary refill is less than 3 seconds Respiratory: Coarse breath sounds with decreased air movement bilaterally, symmetrical chest rise. I appreciated significant wheezes, and rhonchi throughout all lungs burgos, no rales are present. The patient had a nonproductive cough while I was in the room GI: Normal bowel sounds, soft, nontender in all 4 quadrants, nondistended MSK: No sensory or motor changes, moves all extremities without issue, extremities are warm and well-perfused Skin: [place], clean, dry, intact. Neuro: Alert and oriented x4 Psych: Calm, cooperative, logical thought process Results & Data Vital Signs (Past 12 Hours) Vital Signs Temp Pulse Pulse Pulse Resp Resp BP 06/19/19 01:30 77 24 06/19/19 00:54 90 18 06/19/19 00:44 38.0 C H 77 22 06/18/19 23:03 24 06/18/19 22:47 87 24 06/18/19 22:41 06/18/19 22:14 37.4 C 78 18 131/85 BP Pulse Ox Pulse Ox 06/19/19 01:30 93 06/19/19 00:54 93 06/19/19 00:44 130/76 95 06/18/19 23:03 137/77 96 06/18/19 22:47 91 06/18/19 22:41 94 06/18/19 22:14 93 Laboratory Results 06/18/19 06/18/19 06/18/19 Range/Units 22:51 22:40 22:40 WBC (4.8-10.8) K/uL RBC (4.7-6.1) M/uL Hgb (14.0-18.0) g/dL Hct (42-52) % MCV (80-100) fL MCH (25-34) pg MCHC (32-36) g/dL RDW Std Deviation (36.4-46.3) fL RDW Coeff of Ny (11.5-14.5) % Plt Count (130-400) K/uL MPV (7.4-10.4) fL Immature Gran % (Auto) % Neut % (Auto) % Lymph % (Auto) % Bowie % (Auto) % Eos % (Auto) % Baso % (Auto) % Immature Gran # (Auto) (0.00-0.02) K/uL Neut # (Auto) (1.4-6.5) K/uL Lymph # (Auto) (1.2-3.4) K/uL Bowie # (Auto) (0.11-0.59) K/uL Eos # (Auto) (0-0.5) K/uL Baso # (Auto) (0-0.2) K/uL PT 10.2 (9.0-12.0) Seconds INR 1.0 (0.9-1.1) APTT 26.5 (21.0-31.0) Seconds PTT Ratio 1.0 Sodium 133 L (136-145) mmol/L Potassium 4.0 (3.5-5.1) mmol/L Chloride 103 (98-107) mmol/L Carbon Dioxide 24 (21-32) mmol/L Anion Gap 7.0 (3-11) BUN 18 (7-18) mg/dl Creatinine 1.19 (0.6-1.4) mg/dl Est Cr Clr Drug Dosing 64.7 ml/min Est GFR ( Amer) 77.0 Est GFR (Non-Af Amer) 66.5 BUN/Creatinine Ratio 15.4 (10-20) Glucose 95 (70-99) mg/dl Calcium 8.8 (8.5-10.1) mg/dl Magnesium 1.5 L (1.8-2.4) mg/dl Total Bilirubin 0.3 (0.2-1) mg/dl AST 28 (15-37) U/L ALT 25 (12-78) U/L Alkaline Phosphatase 58 (45-117) U/L Troponin I 0.025 (0-0.045) ng/ml Total Protein 7.5 (6.4-8.2) gm/dl Albumin 3.8 (3.4-5.0) gm/dl Globulin 3.7 (2.5-4.0) gm/dl Albumin/Globulin Ratio 1.0 (0.9-2) Influenza Type A Ag Neg for Influ A (Neg) Influenza Type B Ag Pos for Influ B A* (Neg) 06/18/19 Range/Units 22:40 WBC 8.99 (4.8-10.8) K/uL RBC 5.09 (4.7-6.1) M/uL Hgb 15.9 (14.0-18.0) g/dL Hct 45.4 (42-52) % MCV 89.2 (80-100) fL MCH 31.2 (25-34) pg MCHC 35.0 (32-36) g/dL RDW Std Deviation 45.5 (36.4-46.3) fL RDW Coeff of Ny 13.8 (11.5-14.5) % Plt Count 158 (130-400) K/uL MPV 11.5 H (7.4-10.4) fL Immature Gran % (Auto) 0.1 % Neut % (Auto) 77.6 % Lymph % (Auto) 11.0 % Bowie % (Auto) 11.3 % Eos % (Auto) 0.0 % Baso % (Auto) 0.0 % Immature Gran # (Auto) 0.01 (0.00-0.02) K/uL Neut # (Auto) 6.97 H (1.4-6.5) K/uL Lymph # (Auto) 0.99 L (1.2-3.4) K/uL Bowie # (Auto) 1.02 H (0.11-0.59) K/uL Eos # (Auto) 0.00 (0-0.5) K/uL Baso # (Auto) 0.00 (0-0.2) K/uL PT (9.0-12.0) Seconds INR (0.9-1.1) APTT (21.0-31.0) Seconds PTT Ratio Sodium (136-145) mmol/L Potassium (3.5-5.1) mmol/L Chloride (98-107) mmol/L Carbon Dioxide (21-32) mmol/L Anion Gap (3-11) BUN (7-18) mg/dl Creatinine (0.6-1.4) mg/dl Est Cr Clr Drug Dosing ml/min Est GFR ( Amer) Est GFR (Non-Af Amer) BUN/Creatinine Ratio (10-20) Glucose (70-99) mg/dl Calcium (8.5-10.1) mg/dl Magnesium (1.8-2.4) mg/dl Total Bilirubin (0.2-1) mg/dl AST (15-37) U/L ALT (12-78) U/L Alkaline Phosphatase (45-117) U/L Troponin I (0-0.045) ng/ml Total Protein (6.4-8.2) gm/dl Albumin (3.4-5.0) gm/dl Globulin (2.5-4.0) gm/dl Albumin/Globulin Ratio (0.9-2) Influenza Type A Ag (Neg) Influenza Type B Ag (Neg) Code Status & VTE Plan Code Status Full VTE Prophylaxis Plan VTE Prophylaxis will be ordered: Yes Supervising Physician Co-Signing Physician Notes Attending addendum: I have physically seen this patient, have supervised the medical residents activities, and agree with the H&P unless as otherwise noted. Assessment and Plan: Influenza B/COPD exacerbation- Tamiflu 75 mg p.o. twice daily guaifenesin extended release 600 mg p.o. twice daily Prednisone taper as written Duonebs every 4 hours while awake and every 2 hours when necessary. Sputum Gram stain and culture Nasal cannula 2 L oxygen, titrate to keep pulse ox around 92% Remainder of orders and notations as noted. Resident Activity Tracking Resident Involvement: Resident Care Provided Care Provided: Adult Hospital Medicine
[2019-06-19] MEDS ORDERED: GUAIFENESIN/DEXTROM SYRUP 200MG/20MG 10ML UDC PO PRN (02:59)
[2019-06-19] MEDS ORDERED: PSEUDOEPHEDRINE HCL 30 MG TAB PO PRN (02:59)
[2019-06-19] MEDS ORDERED: ACETAMINOPHEN 325 MG TAB PO PRN (02:59)
[2019-06-19] MEDS ORDERED: IBUPROFEN 200 MG TAB PO PRN (02:59)
[2019-06-19] MEDS ORDERED: ONDANSETRON INJ 2 MG/ML 2 ML VIAL IV PRN (02:59)
--- NOTE | 2019-06-19 05:59 | XRay Report ---
XR chest 1V portable CLINICAL HISTORY: chest pain chest pain COMPARISON STUDY: 01/14/2019 FINDINGS: The bones soft tissues and hemidiaphragms are normal. The cardiomediastinal silhouette is n ormal. The lungs are clear. The pulmonary vasculature is normal. IMPRESSION: Negative chest. ACT 112: Negative or not required by law. The above report was generated using voice recognition software. It may contain grammatical, syntax or spelling errors. Electronically signed by: Adeel Rios M.D. 06/19/2019 5:58 AM
[2019-06-19] MEDS: ALBUT/IPRATROP 3MG/0.5MG NEB 3 ML VIAL NEB SCH ×4 (06:37→19:59)
[2019-06-19] MEDS: OSELTAMIVIR PHOSPHATE 75 MG CAP PO SCH ×2 (08:13→20:42)
[2019-06-19] MEDS: FEXOFENADINE HCL 180 MG TAB PO SCH (08:13)
[2019-06-19] MEDS: ROSUVASTATIN CALCIUM 10 MG TAB PO SCH (08:13)
[2019-06-19] MEDS: NICOTINE 14 MG/24 HR PATCH TD SCH (08:13)
[2019-06-19] MEDS: POLYETHYLENE (MIRALAX) 17 GM PACK PO SCH ×2 (08:13→20:42)
[2019-06-19] MEDS: METOPROLOL TARTRATE 25 MG TAB PO SCH ×2 (08:13→20:41)
[2019-06-19] MEDS: ESCITALOPRAM OXALATE 10 MG TAB PO SCH (08:13)
[2019-06-19] MEDS: ENOXAPARIN INJ 40 MG/0.4 ML SYR SQ SCH (08:14)
[2019-06-19] MEDS: UMECLIDINIUM BROMIDE 62.5MCG/BLISTER 7 PUFFS/INHALER INH SCH (08:14)
[2019-06-19] MEDS ORDERED: predniSONE 20 MG TAB PO SCH (09:00)
--- NOTE | 2019-06-19 11:34 | History & Physical Bridge Note ---
Date of Service June 19, 2019 History & Physical Bridge Note I have examined the patient, reviewed the History & Physical and in the interval since the performance of the History & Physical I have noted the following changes of clinical significance: no changes noted Feeling somewhat better than when he came in. No further chest tightness, no chest pain. Non productive moist cough. Aches and chills have improved. Will stop prednisone as patient is not wheezing and is satting 97% on RA. Continue supportive care and Tamiflu. Can likely discharge in the morning.
--- NOTE | 2019-06-19 16:47 | Electrocardiogram Report ---
Test Reason : Blood Pressure : / mmHG Vent. Rate : 076 BPM Atrial Rate : 076 BPM P-R Int : 166 ms QRS Dur : 104 ms QT Int : 352 ms P-R-T Axes : 082 094 068 degrees QTc Int : 396 ms Poor data quality, interpretation may be adversely affected Normal sinus rhythm Possible Left atrial enlargement Rightward axis Incomplete right bundle branch block Abnormal ECG When compared with ECG of 14-JAN-2019 22:58, No significant change was found Confirmed by Kev Saleem ([id number]) on 06/19/2019 4:46:44 PM Referred By: REFERRED SELF Confirmed By:Ryan Saleem
--- NOTE | 2019-06-19 16:48 | Electrocardiogram Report ---
Test Reason : Blood Pressure : / mmHG Vent. Rate : 075 BPM Atrial Rate : 075 BPM P-R Int : 168 ms QRS Dur : 102 ms QT Int : 354 ms P-R-T Axes : 082 094 063 degrees QTc Int : 395 ms Normal sinus rhythm Possible Left atrial enlargement Rightward axis Incomplete right bundle branch block Borderline ECG When compared with ECG of 18-JUN-2019 22:27, (unconfirmed) No significant change was found Confirmed by Kev Saleem ([id number]) on 06/19/2019 4:48:41 PM Referred By: REFERRED SELF Confirmed By:Ryan Saleem
[2019-06-19] MEDS ORDERED: TRAZODONE HCL 100 MG TAB PO PRN (20:10)
[2019-06-20] MEDS: ALBUT/IPRATROP 3MG/0.5MG NEB 3 ML VIAL NEB SCH ×2 (07:32→11:02)
[2019-06-20] MEDS: NICOTINE 14 MG/24 HR PATCH TD SCH (08:28)
[2019-06-20] MEDS: ROSUVASTATIN CALCIUM 10 MG TAB PO SCH (08:29)
[2019-06-20] MEDS: ESCITALOPRAM OXALATE 10 MG TAB PO SCH (08:29)
[2019-06-20] MEDS: METOPROLOL TARTRATE 25 MG TAB PO SCH (08:29)
[2019-06-20] MEDS: FEXOFENADINE HCL 180 MG TAB PO SCH (08:29)
[2019-06-20] MEDS: POLYETHYLENE (MIRALAX) 17 GM PACK PO SCH (08:30)
[2019-06-20] MEDS: ENOXAPARIN INJ 40 MG/0.4 ML SYR SQ SCH (08:31)
[2019-06-20] MEDS: UMECLIDINIUM BROMIDE 62.5MCG/BLISTER 7 PUFFS/INHALER INH SCH (08:31)
[2019-06-20] MEDS: OSELTAMIVIR PHOSPHATE 75 MG CAP PO SCH (08:34)
[2019-06-20] MEDS ORDERED: ASPIRIN 81 MG ECTAB PO SCH (09:00)
--- NOTE | 2019-06-20 21:33 | Billing Data ---
Date of Service June 20, 2019 Coding Level of Care Code 98523 Initial Inpt Care Lvl 2
--- NOTE | 2019-06-26 22:56 | Discharge Summary ---
Date of Service June 20, 2019 Admission HPI Per Admitting Provider Patient is a 59-year-old male with a past medical history of coronary artery disease status post stent placement in 2012, chronic sinusitis status post sinus surgery, hypertension, COPD not on home oxygen who presents for evaluation of respiratory difficulties and shortness of breath. Per the patient his symptoms started approximately 2 days ago, they came on very suddenly and severe as if he had had been hit by a train. He saw his primary care provider at that time and swabbed him for the flu which was negative and gave him a course of doxycycline which he is currently taking. His symptoms did not improve with doxycycline, he was also using Tylenol for symptom management. Initially symptoms began as tightness in the chest with associated sweating, he would wake up at night and soaked through his closing of the bed, additionally had a nonproductive cough, shortness of breath, chest tightness, the patient denies significant bowel or bladder changes, chest pressure that he believes to be a cardiac origin, chest pain, nausea, vomiting. Patient reports the majority of his symptoms are currently now in his chest, he is denying upper respiratory symptoms. He states that his current symptoms are an 8 out of 10, and he is never had a cold this severe before. During the interview the patient was demonstrating increased work of breathing, receiving nebulizer treatment, in the ER his CBC was within normal limits, Chem-7 was within normal limits, CMP was within normal limits, he was positive for flu B,No cultures were obtained, he has been given mucinex ketorolac, albuterol, methyl Pred 125mg , Tylenol, and 2 L of saline in the ED. no acute concerns at present, all questions answered. 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 His son has a history of numerous cardiac surgeries and he is afraid that his son will get sick. The patient is a current smoker and continues to smoke despite nu merous attempts by physicians to encourage him to quit. Principal Diagnosis Flu Discharge Exam General:sitting upright, no distress HEENT: Normocephalic atraumatic Neck: No significant lymphadenopathy, trachea midline, normal to visual inspection Cardiac: Regular rate and rhythm, normal S1, normal S2, I did not appreciated any significant murmurs rubs or gallops, I did not appreciate any significant pedal edema, No calf tenderness, capillary refill is less than 3 seconds Respiratory:clear GI: Normal bowel sounds, soft, nontender in all 4 quadrants, nondistended MSK: No sensory or motor changes, moves all extremities without issue, extremities are warm and well-perfused Skin: [place], clean, dry, intact. Neuro: Alert and oriented x4 Psych: Calm, cooperative, logical thought process Discharge Data Allergies Allergy/AdvReac Type Severity Reaction Status Date / Time Iodinated Contrast Media Allergy Severe HIVES Verified 06/18/19 23:57 atorvastatin AdvReac Intermediate FATIQUE, Verified 06/18/19 23:57 OVER TIRED. Consultations 06/19/19 02:04 ED Decision to Admit Stat Hospital Course (1) Influenza B: Patient is a 59-year-old male with a past medical history of coronary artery disease status post stent placement in 2012, chronic sinusitis status post sinus surgery, hypertension, COPD not on home oxygen who presents for evaluation of respiratory difficulties and shortness of breath found to be positive for influenza B. #Influenza B There is a question as to when exactly the patient became symptomatic, therefore we will treat with Tamiflu. Additionally will provide supportive care with Tylenol, antihistamines, expectorants, decongestants along with prednisone. -Admit to obs Tamiflu Caroline Mucinex Sudafed -Stop doxycycline improved by day 2. Stopped steroids. Steroids provided on admission. Will discharge on tamiflu #COPD exacerbation in the setting of influenza B Patient with a history of COPD likely an exacerbation secondary to infection with influenza type B will provide of supportive care as indicated. PRN O2 saturation goal greater than 90 DuoNebs every 6 hours -Spiriva daily #Chronic sinusitis Symptom management as above #Depression Continue home meds #Coronary artery disease Continue statin/asa #Hypertension Continue home metoprolol #Tobacco abuse -Nicotine patch provided (2) Benign essential hypertension: (3) COPD exacerbation: (4) Chronic sinusitis: (5) Depression: (6) Tobacco abuse: Total Time Total Time Spent Total Time Spent (In Minutes): 35 Discharge Plan Discharge Items Patient Disposition: Home - Self-Care Reason For Visit: SOB Discharge Diagnosis: Influenza B Activity: Resume your previous activity Non-emergency contact: Primary Care Provider Call non-emergency contact if: you have any medication questions Follow-up/Referrals: PCPFAITH [Primary Care Provider] - 06/23/19 10:00 am ([facility] [phone] ) Diet: Regular Addtl Attending Provider Instructions: Gave Influenza prevention script for son. For patient: Recommend to continue tamiflu for 7 more doses (3 AND A HALF MORE DAYS). TAKE NEXT DOSE TONIGHT. Followup with PCP in 1-2 weeks Pending Studies at Discharge: No Stand-Alone Forms: My [facility], Smoking Cessation Medications and DC Order Prescriptions: New nicotine 7 mg/24 hr Patch 24 Hour 14 mg transdermal QAM Qty: 30 RF: 0 albuterol sulfate [Ventolin HFA] 90 mcg/actuation HFA aerosol inhaler 1 puffs INH Q6H PRN (Reason: shortness of breath or wheezing) Qty: 18 RF: 0 Continued aspirin [Aspirin Low Dose] 81 mg Tablet,Delayed Release (Dr/Ec) 81 mg PO 3XWK RF: 0 metoprolol tartrate 25 mg Tablet 12.5 mg PO BID RF: 0 escitalopram oxalate 10 mg tablet 10 mg PO DAILY RF: 0 rosuvastatin 10 mg tablet 10 mg PO DAILY RF: 0 doxycycline hyclate 100 mg Capsule 100 mg PO BID RF: 0 ibuprofen 200 mg Tablet 400 mg PO QID PRN (Reason: Pain) RF: 0 Discontinued prednisone 20 mg Tablet 0 mg PO .DAILY/UD RF: 0 Unknown Rx Inhaler inhaler 1 puff inhalation DAILY PRN (Reason: Shortness Of Breath Or Wheezing) RF: 0 Discharge Orders: Discharge Order (Routine); Ordered 06/20/19 Ordered By: Adi Castillo/Other Patient Handouts: Flu Admission Data Admit Date/Time: 06/19/19 02:20 Attending Provider: Adi Monteiro Admit Provider: Francisco Khan I. Primary Care Provider: PCP,NO Other Providers: Elio Sal ; Isaiah Wu Other Interventions: Discharge Summary Assessment (RN) Last Done: 06/20/19 10:10 DC Date/Time DO NOT enter until pt leaves facility: 06/20/19 11:06 Coding Level of Care Code D/C Day Management >30 mins Diagnoses Influenza B J10.1 Benign essential hypertension I10 COPD exacerbation J44.1 Chronic sinusitis J32.9 Depression F32.9 Tobacco abuse Z72.0 Time Spent (min) 35
== END 2019-06-20 11:06 | disposition home or self-care (01) ==
LOC: 3W 22:11 → ED 22:11 → SUATTDRO 06-19 02:20 → 3W 06-19 02:36

== ENCOUNTER 2023-05-22 17:51 | Inpatient (IN) ==
--- NOTE | 2023-05-22 18:02 | ED Triage Note ---
Date of Service May 22, 2023 Provider in Triage Author: Samia Dowd History of Present Illness This patient was briefly evaluated while in triage. An abbreviated physical exam was performed. This patient is a 63-year-old Male who presents to the ED for evaluation of shortness of breath and chest tightness which started yesterday. Symptoms have been constant. He does report a cough. Feels like he is having a hard time catching his breath. Physical Exam VITALS: Vitals are noted on the nurse's note and reviewed by myself. GENERAL: This is a 63-year-old male, in no acute distress, well-developed well- nourished. SKIN: The skin was without rashes. HEART: Regular rate and rhythm without murmurs gallops or rubs. LUNGS: Clear to auscultation bilaterally without wheezes, rales or rhonchi. No retractions or accessory muscle use. NEURO: Patient was alert and oriented to person place and time. Initial orders for labs and / or imaging were placed and patient was placed in the waiting area until a bed is available. Please see further documentation for the full ED course. MDM / Impression Impression Impression: Shortness of breath, COVID-19, Non-ST elevation MO (NSTEMI)
[2023-05-22] MEDS ORDERED: ALBUT/IPRATROP 3MG/0.5MG NEB 3 ML VIAL NEB STA (18:03)
[2023-05-22 18:59] LABS: Basophils # (auto) 0.03 K/uL (0.00-0.20); Basophils % (auto) 0.6 %; Hematocrit (blood only) 47.1 % (42.0-52.0); Hemoglobin 15.8 g/dl (14.0-18.0); Immature Granulocytes # (auto) 0.01 K/uL (0.01-0.20); Immature Granulocytes % (auto) 0.2 %; Lymphocytes # (auto) 1.22 K/uL (1.20-3.40); Mean Corpuscular Hemoglobin 29.2 pg (25.0-34.0); Mean Corpuscular Hgb Conc 33.5 g/dL (32.0-36.0); Mean Corpuscular Volume 86.9 fL (80.0-100.0); Mean Platelet Volume 11.2 fL (9.4-12.4); Monocytes # (auto) 0.62 K/uL (0.11-0.59); Monocytes % (auto) 12.2 %; Platelet Count 164 K/uL (130-400); RDW Coefficient of Variation 13.3 % (11.5-14.5); RDW Standard Deviation 42.2 fL (36.4-46.3); Red Blood Count 5.42 M/uL (4.70-6.10); White Blood Count 5.08 K/ul (4.8-10.8)
--- NOTE | 2023-05-22 19:03 | XRay Report ---
XR chest 1V portable HISTORY: 63 years-old Male cough, sob acute cough with shortness of breath COMPARISON: 02/04/2022 TECHNIQUE: AP view of the chest FINDINGS: Cardiomediastinal and hilar silhouettes are within normal limits. No pneumothorax, pleural effusion o r airspace consolidation. The bones appear intact. IMPRESSION: No acute process. ACT 112: Negative or not required by law. The above report was generated using voice recognition software. It may contain grammatical, syntax o r spelling errors. Electronically signed by: Keron Gil M.D. 05/22/2023 7:01 PM
[2023-05-22 19:16] LABS: Albumin Level 4.4 gm/dl (3.4-5.0); Bilirubin,Total 0.5 mg/dl (0.2-1.0); Calcium 9.1 mg/dl (8.6-10.3); Potassium 4.1 mmol/L (3.5-5.1)
[2023-05-22] MEDS ORDERED: MAGNESIUM SULFATE / D5W 1 GM/100 ML BAG IV STA (19:17)
[2023-05-22] MEDS ORDERED: methylPREDNISolone 125 MG/2 ML VIAL IV STA (19:17)
--- NOTE | 2023-05-22 19:21 | Emergency Department Note ---
Impression & Plan Shortness of breath, COVID-19, Non-ST elevation GA (NSTEMI) ED Provider Note HISTORY OF PRESENT ILLNESS: Patient is a 63-year-old male presenting with shortness of breath. Patient reports that he has been having worsening shortness of breath and chest tightness for the last 3 days. He denies any notable fevers at home. Complains of constant chest tightness and feels like he cannot catch his breath. Denies any DVT or PE history. He has a history of COPD and has been using albuterol inhalers without any relief in symptoms. Reports he is only able to take a few steps at a time before becoming profoundly short of breath. He denies any recent sick contact exposures. Has had a nonproductive cough. He reports diarrhea but denies any abdominal pain, nausea or vomiting. He reports a history of a cardiac stent. ROS: as above PHYSICAL EXAM: Constitutional: Patient appears in no acute distress. HENT: Head: Normocephalic and atraumatic. Eyes: EOMI, PERRL Mouth/Throat: Mucous membranes moist. Neck: Trachea midline. Neck supple. Cardiovascular: RRR, No murmurs, rubs or gallops. Intact distal pulses. Pulmonary/Chest: Conversationally dyspneic. Patient has expiratory wheezes bilaterally. Abdominal: Abdomen soft, no tenderness, rebound or guarding. Musculoskeletal: No edema, tenderness or deformity noted. Skin: Warm and dry. No rash, erythema, pallor or cyanosis Psychiatric: Appropriate mood and affect for situation. Neurological: Alert and keenly responsive. CN II-XII grossly intact, moving all extremities equally and fully. MDM: - Vitals signs showed hypertension and borderline hypoxia. - History obtained via patient. Patient presents with shortness of breath and chest pain. Patient reports he has been having worsening shortness of breath and chest tightness for the last 3 days. Denies any notable fevers. Complains of constant chest tightness and feels like he cannot catch his breath. Denies any DVT or PE history. He reports a history of a cardiac stent. - Chronic conditions affecting care: DM-2; depression; HTN; CHF; HLD; COPD - Differential diagnoses include, but are not limited to: Congestive heart failure; acute coronary syndrome; COPD/asthma exacerbation; pulmonary edema; pulmonary embolism; pneumonia; pneumothorax; viral syndrome - Order placed for continuous cardiac monitoring. At this time, monitor showed rate of 80 bpm with normal sinus rhythm, per my interpretation. - External medical records reviewed. Discharge summary dated 06/20/2019 was reviewed. Patient was admitted at that time for influenza and shortness of breath. - EKG interpreted by myself showed normal sinus rhythm. Rate 76 bpm. QT 358. No acute ischemic changes - Laboratory workup interpreted by myself showed normal WBC; stable electrolytes; elevated troponin (34.3) - Repeat troponin trended slightly down to 34 - CXR negative for pneumonia - Viral respiratory panel positive for COVID. However, the patient reports that he tested positive for COVID 1 month ago - Patient given duoneb, 125 mg IV solumedrol and 1g IV magnesium for wheezing in ER. On reassessment, wheezes have improved but patient is complaining of a headache. He was given 1 g of IV Tylenol. - Heart score 4 (History +0 slightly suspicious; EKG +0; Age +1; Risk factors +2; Initial troponin +1), amounting to a moderate score. - Discussion was had with child care sitter about patient's case and need for admission - Hospitalist consulted for admission - [facility] ASSESSMENT AND PLAN: Diagnosis: shortness of breath; COVID; NSTEMI Plan: admit Past Med/Surg History Medical History (Updated 05/22/23 @ 22:29 by Evelyn Hart MD) History of prostate cancer Diabetes Pneumonia (11/17/12) Tobacco abuse Depression Benign essential hypertension Congestive heart failure Anxiety Migraine Hypertension Hyperlipidemia REFUSING MEDS Myocardial Infarction 10/2012---LEFT ARM NUMB, SOB--FOLLOWS WITH DR. OROZCO Chronic obstructive pulmonary disease INHALER PRN Surgical History History of colonoscopy History of tooth extraction WISDOM TEETH History of endoscopic sinus surgery History of heart artery stent 10/2012 @ [facility] X1 STENT History of cardiac cath X3--10/2012 (X1 STENT), 2013, 2016 History of bronchoscopy 2016 @ [facility] DR. ZEPEDA Family History Son Family history of reaction to anesthesia DIFFICULT TO WAKE UP Sister Family history of diabetes mellitus Other Asthma Cancer Diabetes Heart disease Lung disease Social History Smoking Status: Current every day smoker Tobacco Type: Cigarettes packs per day: 1.5; Cigarettes Per Day: 20; Second Hand Exposure: Yes; Do You Dip or Chew Tobacco: No; Hx Alcohol Use: Yes Hx Substance Use: No Preferred Language: Amharic Communication Ability: Effective Retail Service Specialist Required: No Beliefs That Will Affect Care: None Current Living Situation: Family Current Living Situation Comment: LIVES WITH AND SON Feels Safe at Home: Yes Assistive Devices: None Allergies Allergies Allergy/AdvReac Type Severity Reaction Status Date / Time Iodinated Contrast Media Allergy Severe HIVES Verified 05/22/23 20:51 atorvastatin AdvReac Intermediate FATIQUE, Verified 05/22/23 20:51 OVER TIRED. Home Meds Home Medications Medication Instructions Recorded Confirmed metoprolol tartrate 25 mg tablet 25 mg PO HS 01/14/18 05/22/23 ibuprofen 200 mg tablet 400 mg PO QID PRN Pain 06/25/18 05/22/23 rosuvastatin 10 mg tablet 10 mg PO HS 06/18/19 05/22/23 citalopram 20 mg tablet 20 mg PO HS 06/17/21 05/22/23 cyclobenzaprine 10 mg tablet 10 - 20 mg PO HS PRN Muscle Spasm 06/17/21 05/22/23 lorazepam 0.5 mg tablet 0.5 mg PO DAILY PRN SEVERE ANXIETY 05/22/23 05/22/23 Results & Data (ED) Vital Signs Vital Signs - 24 hr 05/22/23 18:00 05/22/23 18:20 05/22/23 18:33 Temperature 36.5 C Temperature Source Skin Pulse Rate 85 72 Pulse Rate from SpO2 Sensor Pulse Rhythm Regular Pulse Strength Normal Respiratory Rate 20 Respiratory Effort / Characteristics Non-Labored Spontaneous Respiratory Depth Normal Normal Respiratory Pattern Regular Blood Pressure 148/86 H Blood Pressure Mean 106 Pulse Oximetry 92 Oxygen Delivery Method Room Air Oxygen Flow Rate Sepsis Recent Fever Within 48 Hours No Sepsis New/Unexplained Change in Mental Status N/A Sepsis Action Taken by Nursing No Action Required 05/22/23 18:33 05/22/23 19:00 05/22/23 20:00 Temperature Temperature Source Pulse Rate 66 67 Pulse Rate from SpO2 Sensor 63 66 Pulse Rhythm Pulse Strength Respiratory Rate 19 20 Respiratory Effort / Characteristics Respiratory Depth Respiratory Pattern Blood Pressure 100/76 112/84 Blood Pressure Mean 84 93 Pulse Oximetry 97 95 Oxygen Delivery Method Room Air Oxygen Flow Rate 92 Sepsis Recent Fever Within 48 Hours Sepsis New/Unexplained Change in Mental Status Sepsis Action Taken by Nursing 05/22/23 21:00 Temperature Temperature Source Pulse Rate 79 Pulse Rate from SpO2 Sensor 80 Pulse Rhythm Pulse Strength Respiratory Rate 20 Respiratory Effort / Characteristics Respiratory Depth Respiratory Pattern Blood Pressure 117/81 Blood Pressure Mean 93 Pulse Oximetry 92 Oxygen Delivery Method Oxygen Flow Rate Sepsis Recent Fever Within 48 Hours Sepsis New/Unexplained Change in Mental Status Sepsis Action Taken by Nursing Laboratory Data 05/22/23 18:10 05/22/23 18:10 Lab Results 05/22/23 05/22/23 05/22/23 Range/Units 18:02 18:10 20:41 WBC 5.08 (4.8-10.8) K/ul RBC 5.42 (4.70-6.10) M/uL Hgb 15.8 (14.0-18.0) g/dl Hct 47.1 (42.0-52.0) % MCV 86.9 (80.0-100.0) fL MCH 29.2 (25.0-34.0) pg MCHC 33.5 (32.0-36.0) g/dL RDW Std Deviation 42.2 (36.4-46.3) fL RDW Coeff of [place] 13.3 (11.5-14.5) % Plt Count 164 (130-400) K/uL MPV 11.2 (9.4-12.4) fL Immature Gran % (Auto) 0.2 % Neut % (Auto) 61.0 % Lymph % (Auto) 24.0 % [place] % (Auto) 12.2 % Eos % (Auto) 2.0 % Baso % (Auto) 0.6 % Neut # (Auto) 3.10 (1.40-6.50) K/uL Lymph # (Auto) 1.22 (1.20-3.40) K/uL [place] # (Auto) 0.62 H (0.11-0.59) K/uL Eos # (Auto) 0.10 (0.00-0.50) K/uL Baso # (Auto) 0.03 (0.00-0.20) K/uL Immature Gran # (Auto) 0.01 (0.01-0.20) K/uL Sodium 135 L (136-145) mmol/L Potassium 4.1 (3.5-5.1) mmol/L Chloride 101 (98-107) mmol/L Carbon Dioxide 27 (21-32) mmol/L Anion Gap 7 (3-11) BUN 12 (6-23) mg/dl Creatinine 0.98 (0.6-1.4) mg/dl Est Cr Clr Drug Dosing 83.3 ml/min Est GFR ( Amer) 94.7 ml/min Est GFR (Non-Af Amer) 81.7 ml/min BUN/Creatinine Ratio 12.2 (10-20) Glucose 86 (70-99(Fasting)) mg/dl Calcium 9.1 (8.6-10.3) mg/dl Total Bilirubin 0.5 (0.2-1.0) mg/dl AST 16 (13-39) U/L ALT 15 (7-52) U/L Alkaline Phosphatase 62 (34-104) U/L Troponin I High Sens 34.3 H 34.0 H (0-20) pg/ml Total Protein 7.3 (6.0-8.3) gm/dl Albumin 4.4 (3.4-5.0) gm/dl Globulin 2.9 (2.5-4.0) gm/dl Albumin/Globulin Ratio 1.5 (0.9-2) Adenovirus (PCR) Not Detected (NotDetected) B. pertussis DNA (PCR) Not Detected (NotDetected) B.parapertussis DNA PCR Not Detected (NotDetected) C. pneumoniae DNA (PCR) Not Detected (NotDetected) Coronavirus OC43 (PCR) Not Detected (NotDetected) Coronavirus HKU1 (PCR) Not Detected (NotDetected) Coronavirus 229E (PCR) Not Detected (NotDetected) SARS-CoV-2 (PCR) DETECTED A* (NotDetected) Coronavirus NL63 (PCR) Not Detected (NotDetected) Human Metapneumovir PCR Not Detected (NotDetected) Influenza Type A (PCR) Not Detected (NotDetected) Influenza Type B (PCR) Not Detected (NotDetected) M. pneumoniae (PCR) Not Detected (NotDetected) Parainfluenza 1 (PCR) Not Detected (NotDetected) Parainfluenza 2 (PCR) Not Detected (NotDetected) Parainfluenza 3 (PCR) Not Detected (NotDetected) Parainfluenza 4 (PCR) Not Detected (NotDetected) RSV (PCR) Not Detected (NotDetected) Entero/Rhino (PCR) Not Detected (NotDetected) Administered Medications Discontinued Medications Albuterol (Albut/Ipratrop 3mg/0.5mg Neb 3 Ml Vial) 3 ml NEB NOW STA; Protocol Stop: 05/22/23 18:04 Last Admin: 05/22/23 18:38 Dose: 3 ml Documented By: AILYN Magnesium Sulfate/Dextrose (Magnesium Sulfate / D5w) 1 gm in 100 mls @ 100 mls/hr IV NOW STA Stop: 05/22/23 20:16 Last Infusion: 05/22/23 20:33 Dose: Infused Documented By: Admin: 05/22/23 19:25 Dose: 100 mls/hr Documented By: SANDRA Acetaminophen (Ofirmev) 1,000 mg in 100 mls @ 400 mls/hr IV NOW STA Stop: 05/22/23 21:37 Last Infusion: 05/22/23 21:51 Dose: Infused Documented By: Admin: 05/22/23 21:34 Dose: 400 mls/hr Documented By: SEYMOUR Methylprednisolone (Methylprednisolone 125 Mg/2 Ml Vial) 125 mg IV NOW STA Stop: 05/22/23 19:18 Last Admin: 05/22/23 19:26 Dose: 125 mg Documented By: SANDRA Imaging Data Radiologist's Impression: Chest X-Ray 05/22/23 18:02 XR chest 1V portable HISTORY: 63 years-old Male cough, sob acute cough with shortness of breath COMPARISON: 02/04/2022 TECHNIQUE: AP view of the chest FINDINGS: Cardiomediastinal and hilar silhouettes are within normal limits. No pneumothorax, pleural effusion or airspace consolidation. The bones appear intact. IMPRESSION: No acute process. ACT 112: Negative or not required by law. The above report was generated using voice recognition software. It may contain grammatical, syntax or spelling errors. Electronically signed by: Keron Gil M.D. 05/22/2023 7:01 PM Discharge Plan Visit Data Chief Complaint: Shortness of Breath/Dyspnea Stated Complaint: COUGH, SOB ED Provider: Evelyn Hart Discharge Problem: Shortness of breath, COVID-19, Non-ST elevation GA (NSTEMI) Forms Stand Alone Forms: [facility] Prescriptions Prescriptions: No Action metoprolol tartrate 25 mg Tablet 25 mg PO HS Rx Instructions: ORDERED 12.5 MG BID, PER PT "TAKE AT HS". rosuvastatin 10 mg tablet 10 mg PO HS ibuprofen 200 mg Tablet 400 mg PO QID PRN (Reason: Pain) cyclobenzaprine 10 mg tablet 10 - 20 mg PO HS PRN (Reason: Muscle Spasm) citalopram 20 mg tablet 20 mg PO HS lorazepam 0.5 mg tablet 0.5 mg PO DAILY PRN (Reason: SEVERE ANXIETY) Referrals Referrals: Mo Rodriges, PAJingC [Primary Care Provider] -
[2023-05-22 19:22] LABS: Albumin Globulin Ratio 1.5 (0.9-2); BUN Creatinine Ratio 12.2 (10-20); Creatinine Clr Calc Pharmacy 83.3 ml/min; Est GFR (African American) 94.7 ml/min; Est GFR (Non-African American) 81.7 ml/min; Globulin 2.9 gm/dl (2.5-4.0); Total Protein 7.3 gm/dl (6.0-8.3); Troponin I High Sensitivity 34.3 pg/ml (0-20)
[2023-05-22 19:50] LABS: Adenovirus PCR Not Detected (NotDetected); Bordetella parapertussis PCR Not Detected (NotDetected); Bordetella pertussis PCR Not Detected (NotDetected); Chlamydia pneumoniae PCR Not Detected (NotDetected); Coronavirus 229E PCR Not Detected (NotDetected); Coronavirus HKU1 PCR Not Detected (NotDetected); Coronavirus NL63 PCR Not Detected (NotDetected); Coronavirus OC43PCR Not Detected (NotDetected); Human Metapneumovirus PCR Not Detected (NotDetected); Influenza A PCR Not Detected (NotDetected); Influenza B PCR Not Detected (NotDetected); Mycoplasma pneumoniae PCR Not Detected (NotDetected); Parainfluenza Virus 1 PCR Not Detected (NotDetected); Parainfluenza Virus 2 PCR Not Detected (NotDetected); Parainfluenza Virus 3 PCR Not Detected (NotDetected); Parainfluenza Virus 4 PCR Not Detected (NotDetected); Respiratory Syncytial VirusPCR Not Detected (NotDetected); Rhinovirus/Enterovirus PCR Not Detected (NotDetected)
[2023-05-22 19:51] LABS: Coronavirus CoV-2 (COVID19)PCR DETECTED (NotDetected)
[2023-05-22] MEDS ORDERED: ACETAMINOPHEN 1,000 MG/100 ML VIAL IV STA (21:23)
[2023-05-22] MEDS ORDERED: ASPIRIN CHEW 324 MG PO STA (22:35)
[2023-05-22] MEDS ORDERED: REMDESIVIR 200 MG in SODIUM CHLORIDE 0.9% 210 ML IV STA (22:35)
[2023-05-22] MEDS ORDERED: dexAMETHasone 6 MG in SYRINGE 0 ML IV ONE (22:45)
--- NOTE | 2023-05-22 22:49 | History & Physical Report ---
Date of Service May 22, 2023 Assessment & Plan (1) Non-ST elevation NE (NSTEMI): (2) COVID-19: (3) Shortness of breath: (4) Hypoxia: (5) Tobacco abuse: (6) COPD exacerbation: (7) Stented coronary artery: (8) CAD (coronary artery disease): (9) Myocardial Infarction: (10) Depression: Plan NSTEMI/CAD/history of NE/stented coronary artery- The patient will be admitted to telemetry for serial cardiac enzymes, serial EKG's, cardiac rhythm monitoring and a 2-D echocardiogram with Dopplers. Initial troponin 34.3, with follow-up 34.0 Give chewable aspirin 324 mg p.o. now, and 81 mg every morning Continue metoprolol tartrate 25 mg at bedtime, and rosuvastatin at bedtime Elevated troponin may be a primary issue, or may be secondary to physiologic stress of COVID-19, and also will need to be assessed for possible pericardial effusion Hypoxia/COVID-19 infection/COPD exacerbation- From the ED received the following: DuoNeb, magnesium sulfate 1 g IV, Solu- Medrol 125 mg IV Give dexamethasone 6 mg IV now and every morning Remdesivir IV per protocol Azithromycin 500 mg IV daily Albuterol HFA 2 puffs 4 times daily as needed Patient is not on any regular inhalers, but likely should be started on something such as Trelegy Ellipta prior to discharge Toothache- Patient reports he thinks he may have a tooth on the right maxillary area infected, as he can feel drainage from that area Ceftriaxone 2 g IV every 24 hours Tobacco use disorder- Cessation counseling Patient does not feel he will need a patch Anxiety- Continue citalopram 20 mg at bedtime, and lorazepam as needed History of Present Illness Chief Complaint: The patient presents to the emergency department with 3 days of progressively worsening shortness of breath, chest tightness and loose stools. Primary Care Provider: Mo Rodriges The patient is a 63-year-old male with a past medical history including tobacco abuse, depression, hypertension, COPD, chronic sinusitis, CAD with angioplasty and stented coronary artery, and sleep deprivation. He presents to the emergency department with 3 days of worsening shortness of breath, chest tightness and loose stools. He does also report generalized weakness and fatigue. He later reported that he feels like a tooth in his right maxillary area is infected, as he can feel drainage from it going down the back of his throat. He continues to smoke 1 pack/day. Pulse ox upon arrival was 92% on room air. Workup in the emergency department included [employer] test positive for COVID-19. Initial troponin elevation at 34.3 with follow-up 34.0. From the ED the patient received the following: DuoNeb treatment, magnesium sulfate 1 g IV, Solu-Medrol 125 mg IV, and Tylenol 1 g IV. Allergies Allergy/AdvReac Type Severity Reaction Status Date / Time Iodinated Contrast Media Allergy Severe HIVES Verified 05/22/23 20:51 atorvastatin AdvReac Intermediate FATIQUE, Verified 05/22/23 20:51 OVER TIRED. Home Medications Medication Instructions Recorded Confirmed Type metoprolol tartrate 25 mg tablet 25 mg PO HS 01/14/18 05/22/23 History ibuprofen 200 mg tablet 400 mg PO QID PRN Pain 06/25/18 05/22/23 History rosuvastatin 10 mg tablet 10 mg PO HS 06/18/19 05/22/23 History citalopram 20 mg tablet 20 mg PO HS 06/17/21 05/22/23 History cyclobenzaprine 10 mg tablet 10 - 20 mg PO HS PRN Muscle Spasm 06/17/21 05/22/23 History lorazepam 0.5 mg tablet 0.5 mg PO DAILY PRN SEVERE ANXIETY 05/22/23 05/22/23 History Past Med/Surg History Medical History (Updated 05/22/23 @ 23:21 by Isaiah Wu MD) History of prostate cancer Diabetes Pneumonia (11/17/12) Tobacco abuse Depression Benign essential hypertension Congestive heart failure Anxiety Migraine Hypertension Hyperlipidemia REFUSING MEDS Myocardial Infarction 10/2012---LEFT ARM NUMB, SOB--FOLLOWS WITH DR. OROZCO Chronic obstructive pulmonary disease INHALER PRN Surgical History History of colonoscopy History of tooth extraction WISDOM TEETH History of endoscopic sinus surgery History of heart artery stent 10/2012 @ [facility] X1 STENT History of cardiac cath X3--10/2012 (X1 STENT), 2013, 2016 History of bronchoscopy 2016 @ [facility] DR. ZEPEDA Family History Son Family history of reaction to anesthesia DIFFICULT TO WAKE UP Sister Family history of diabetes mellitus Other Asthma Cancer Diabetes Heart disease Lung disease Social History Smoking Status: Current every day smoker Tobacco Type: Cigarettes packs per day: 1.5; Cigarettes Per Day: 20; Second Hand Exposure: Yes; Do You Dip or Chew Tobacco: No; Hx Alcohol Use: Yes Hx Substance Use: No Preferred Language: Malagasy Communication Ability: Effective Curtain Fitter Required: No Beliefs That Will Affect Care: None Current Living Situation: Family Current Living Situation Comment: LIVES WITH AND SON Feels Safe at Home: Yes Assistive Devices: None Review of Systems Review of Systems: The patient denies palpitations, lower extremity swelling, sore throat, fevers, chills, sweats, nausea, vomiting, diarrhea , constipation, abdominal pain, pelvic pain, blood in urine or stool, dysuria, urinary frequency or urgency, lightheadedness, dizziness, headache, memory loss, loss of consciousness, rash, abnormal bruising or bleeding, imbalance, focal weakness, numbness or tingling in arms or legs, generalized arthralgias or myalgias, back or neck pain, or night sweats. The review of systems is otherwise negative other than for that already noted above, and at least 10 systems have been reviewed. Physical Exam Physical Exam: The patient is awake, alert and oriented 3, well developed and well nourished, normocephalic and atraumatic, sitting upright in bed and in no acute distress. HEENT--PERRL, EOMI, mucous membranes and oropharynx dry. Neck--supple. No JVD. No bruits. Thyroid normal, trachea midline, no adenopathy. Heart--normal S1 and S2. No murmurs, rubs or gallops. Lungs--clear bilaterally, no respiratory distress, no accessory muscle use. Abdomen--normal bowel sounds and soft. Nontender. Nondistended, no hernias or masses, no organomegaly. Extremities--no cyanosis or clubbing. No edema. There are good distal pulses b/l. Dermatologic--normal skin turgor, normal color, no abnormal lymph nodes, no rash. Neurologic--cranial nerves II through XII grossly intact. Rheumatologic--normal range of motion. Psychiatric--normal affect. Results & Data Results & Data Vital Signs (Past 12 Hours) Vital Signs Temp Pulse Resp BP Pulse Ox O2 Del Method O2 Flow Rate 05/22/23 21:00 79 20 117/81 92 05/22/23 20:00 67 20 112/84 95 05/22/23 19:00 66 19 100/76 97 05/22/23 18:33 Room Air 92 05/22/23 18:20 72 05/22/23 18:00 36.5 C 85 20 148/86 H 92 Room Air Laboratory Results Laboratory Results WBC 5.08 K/ul (4.8-10.8) 05/22/23 18:10 RBC 5.42 M/uL (4.70-6.10) 05/22/23 18:10 Hgb 15.8 g/dl (14.0-18.0) 05/22/23 18:10 Hct 47.1 % (42.0-52.0) 05/22/23 18:10 MCV 86.9 fL (80.0-100.0) 05/22/23 18:10 MCH 29.2 pg (25.0-34.0) 05/22/23 18:10 MCHC 33.5 g/dL (32.0-36.0) 05/22/23 18:10 RDW Std Deviation 42.2 fL (36.4-46.3) 05/22/23 18:10 RDW Coeff of Ny 13.3 % (11.5-14.5) 05/22/23 18:10 Plt Count 164 K/uL (130-400) 05/22/23 18:10 MPV 11.2 fL (9.4-12.4) 05/22/23 18:10 Immature Gran % (Auto) 0.2 % 05/22/23 18:10 Neut % (Auto) 61.0 % 05/22/23 18:10 Lymph % (Auto) 24.0 % 05/22/23 18:10 [place] % (Auto) 12.2 % 05/22/23 18:10 Eos % (Auto) 2.0 % 05/22/23 18:10 Baso % (Auto) 0.6 % 05/22/23 18:10 Neut # (Auto) 3.10 K/uL (1.40-6.50) 05/22/23 18:10 Lymph # (Auto) 1.22 K/uL (1.20-3.40) 05/22/23 18:10 [place] # (Auto) 0.62 K/uL (0.11-0.59) H 05/22/23 18:10 Eos # (Auto) 0.10 K/uL (0.00-0.50) 05/22/23 18:10 Baso # (Auto) 0.03 K/uL (0.00-0.20) 05/22/23 18:10 Immature Gran # (Auto) 0.01 K/uL (0.01-0.20) 05/22/23 18:10 Sodium 135 mmol/L (136-145) L 05/22/23 18:10 Potassium 4.1 mmol/L (3.5-5.1) 05/22/23 18:10 Chloride 101 mmol/L (98-107) 05/22/23 18:10 Carbon Dioxide 27 mmol/L (21-32) 05/22/23 18:10 Anion Gap 7 (3-11) 05/22/23 18:10 BUN 12 mg/dl (6-23) 05/22/23 18:10 Creatinine 0.98 mg/dl (0.6-1.4) 05/22/23 18:10 Est Cr Clr Drug Dosing 83.3 ml/min 05/22/23 18:10 Est GFR ( Amer) 94.7 ml/min 05/22/23 18:10 Est GFR (Non-Af Amer) 81.7 ml/min 05/22/23 18:10 BUN/Creatinine Ratio 12.2 (10-20) 05/22/23 18:10 Glucose 86 mg/dl (70-99(Fasting)) 05/22/23 18:10 Calcium 9.1 mg/dl (8.6-10.3) 05/22/23 18:10 Total Bilirubin 0.5 mg/dl (0.2-1.0) 05/22/23 18:10 AST 16 U/L (13-39) 05/22/23 18:10 ALT 15 U/L (7-52) 05/22/23 18:10 Alkaline Phosphatase 62 U/L (34-104) 05/22/23 18:10 Troponin I High Sens 34.0 pg/ml (0-20) H 05/22/23 20:41 Total Protein 7.3 gm/dl (6.0-8.3) 05/22/23 18:10 Albumin 4.4 gm/dl (3.4-5.0) 05/22/23 18:10 Globulin 2.9 gm/dl (2.5-4.0) 05/22/23 18:10 Albumin/Globulin Ratio 1.5 (0.9-2) 05/22/23 18:10 Adenovirus (PCR) Not Detected (NotDetected) 05/22/23 18:02 B. pertussis DNA (PCR) Not Detected (NotDetected) 05/22/23 18:02 B.parapertussis DNA PCR Not Detected (NotDetected) 05/22/23 18:02 C. pneumoniae DNA (PCR) Not Detected (NotDetected) 05/22/23 18:02 Coronavirus OC43 (PCR) Not Detected (NotDetected) 05/22/23 18:02 Coronavirus HKU1 (PCR) Not Detected (NotDetected) 05/22/23 18:02 Coronavirus 229E (PCR) Not Detected (NotDetected) 05/22/23 18:02 SARS-CoV-2 (PCR) DETECTED (NotDetected) A* 05/22/23 18:02 Coronavirus NL63 (PCR) Not Detected (NotDetected) 05/22/23 18:02 Human Metapneumovir PCR Not Detected (NotDetected) 05/22/23 18:02 Influenza Type A (PCR) Not Detected (NotDetected) 05/22/23 18:02 Influenza Type B (PCR) Not Detected (NotDetected) 05/22/23 18:02 M. pneumoniae (PCR) Not Detected (NotDetected) 05/22/23 18:02 Parainfluenza 1 (PCR) Not Detected (NotDetected) 05/22/23 18:02 Parainfluenza 2 (PCR) Not Detected (NotDetected) 05/22/23 18:02 Parainfluenza 3 (PCR) Not Detected (NotDetected) 05/22/23 18:02 Parainfluenza 4 (PCR) Not Detected (NotDetected) 05/22/23 18:02 RSV (PCR) Not Detected (NotDetected) 05/22/23 18:02 Entero/Rhino (PCR) Not Detected (NotDetected) 05/22/23 18:02 Impressions Chest X-Ray 05/22/23 18:02 XR chest 1V portable HISTORY: 63 years-old Male cough, sob acute cough with shortness of breath COMPARISON: 02/04/2022 TECHNIQUE: AP view of the chest FINDINGS: Cardiomediastinal and hilar silhouettes are within normal limits. No pneumothorax, pleural effusion or airspace consolidation. The bones appear intact. IMPRESSION: No acute process. ACT 112: Negative or not required by law. The above report was generated using voice recognition software. It may contain grammatical, syntax or spelling errors. Electronically signed by: Keron Gil M.D. 05/22/2023 7:01 PM Code Status & VTE Plan Code Status Full code VTE Prophylaxis Plan VTE Prophylaxis will be ordered: Yes PG Care Time/CCT Total # of Minutes Spent Total Time Spent with Patient: Total time spent is greater than 50% in coordination of care (as documented) at patient's floor/unit and/or counseling patient: Coding Level of Care Code 73352 INT INP/OBS CARE 3/75MIN Diagnoses Non-ST elevation NE (NSTEMI) I21.4 COVID-19 U07.1 Shortness of breath R06.02 Hypoxia R09.02 Tobacco abuse Z72.0 COPD exacerbation J44.1 Stented coronary artery Z95.5 CAD (coronary artery disease) I25.10 Myocardial Infarction I21.9 Depression F32.9
[2023-05-22] MEDS ORDERED: ALBUTEROL HFA 8 GM INHALER INH PRN (23:24)
[2023-05-22] MEDS ORDERED: cefTRIAXone SODIUM 2,000 MG in DEXTROSE 5 % MINI-B 50 ML IV SCH (23:30)
[2023-05-23] MEDS ORDERED: AZITHROMYCIN 500 MG in DEXTROSE 5% 250 ML IV SCH (00:30)
[2023-05-23] MEDS ORDERED: CYCLOBENZAPRINE HCL 10 MG TAB PO PRN (00:54)
[2023-05-23] MEDS ORDERED: ACETAMINOPHEN 325 MG TAB PO PRN (00:54)
[2023-05-23] MEDS ORDERED: LORazepam 0.5 MG TAB PO PRN (00:54)
[2023-05-23] MEDS ORDERED: ENOXAPARIN INJ 40 MG/0.4 ML SYR SQ SCH (02:30)
[2023-05-23 04:33] LABS: Basophils # (auto) 0.01 K/uL (0.00-0.20); Basophils % (auto) 0.2 %; Hemoglobin 14.6 g/dl (14.0-18.0); Immature Granulocytes # (auto) 0.01 K/uL (0.01-0.20); Immature Granulocytes % (auto) 0.2 %; Lymphocytes # (auto) 0.58 K/uL (1.20-3.40); Lymphocytes % (auto) 13.2 %; Mean Corpuscular Hemoglobin 28.9 pg (25.0-34.0); Mean Corpuscular Hgb Conc 32.4 g/dL (32.0-36.0); Mean Corpuscular Volume 88.9 fL (80.0-100.0); Mean Platelet Volume 11.4 fL (9.4-12.4); Monocytes # (auto) 0.09 K/uL (0.11-0.59); Monocytes % (auto) 2.1 %; Neutrophils % (auto) 84.3 %; Platelet Count 141 K/uL (130-400); RDW Coefficient of Variation 13.4 % (11.5-14.5); RDW Standard Deviation 43.8 fL (36.4-46.3); Red Blood Count 5.06 M/uL (4.70-6.10); White Blood Count 4.39 K/ul (4.8-10.8)
[2023-05-23 04:51] LABS: Albumin Globulin Ratio 1.6 (0.9-2); BUN Creatinine Ratio 15.5 (10-20); Bilirubin,Total 0.2 mg/dl (0.2-1.0); Creatinine Clr Calc Pharmacy 74.2 ml/min; Est GFR (African American) 82.4 ml/min; Est GFR (Non-African American) 71.1 ml/min; Globulin 2.5 gm/dl (2.5-4.0); Potassium 4.2 mmol/L (3.5-5.1); Total Protein 6.5 gm/dl (6.0-8.3)
[2023-05-23] MEDS ORDERED: ONDANSETRON INJ 2 MG/ML 2 ML VIAL IV PRN (05:00)
[2023-05-23] MEDS: ASPIRIN 81 MG ECTAB PO SCH (07:58)
[2023-05-23] MEDS: dexAMETHasone 6 MG in SYRINGE 0 ML IV SCH (07:58)
--- NOTE | 2023-05-23 08:04 | Hospitalist Progress Note ---
Date of Service May 23, 2023 Assessment & Plan (1) COVID-19: Plan: COVID-19 causing acute exacerbation of COPD - initially hypoxic, improved now on room air - continue remdesivir and dexamethasone - continue bronchodilators, flutter valve, incentive spirometer - anticipate discharge home soon procalcitonin is negative and chest x-ray negative for focality therefore no evidence of community-acquired pneumonia, stop azithromycin and ceftriaxone (2) COPD exacerbation: Plan: as above Albuterol HFA 2 puffs 4 times daily as needed Patient is not on any regular inhalers, but likely should be started on something such as Trelegy Ellipta prior to discharge (3) Non-ST elevation [place] (NSTEMI): Plan: minimally elevated troponin peaked at 34, now downtrending consistent with myocardial strain setting of respiratory illness no acute ST changes on EKGs -I personally reviewed EKG tracing - normal sinus rhythm, no ST elevations or depressions no evidence of acute coronary syndrome suspect noncardiac/ musculoskeletal chest wall pain related to coughing reviewed TTE todayunchanged from previous: EF 60-65%, no regional wall motion abnormalities, borderline LVH (4) Shortness of breath: (5) Hypoxia: (6) Tobacco abuse: Plan: continue nicotine patch, 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 When questioned has L upper chest discomfort near axilla/shoulder, nonradiating, not pleuritic, no nausea/diaphoresis Physical Exam 2 Physical Exam: PHYSICAL EXAMINATION Last 24h vital signs reviewed, see documentation in flowsheet General: comfortable appearing, no distress HEENT: Normocephalic, atraumatic, pupils round and equal, sclerae anicteric, no conjunctival injection, moist mucus membranes Lungs: mildly increased respiratory effort. coarse bilaterally with scattered rhonchi and diffuse mild expiratory wheezes, good air movement Heart: Regular rate and rhythm, no murmurs. No JVD. chest wall possibly tender near right axilla/shoulder however not clearly reproducible on exam. area of pain/tenderness is very focal Abdomen: Soft, nontender, nondistended. Bowel sounds present. Extremities: Warm, dry, well-perfused. No extremity edema. Neuro: Alert and oriented x 4, face symmetric, moves 4 extremities well Psych: Normal affect and behavior Results & Data Results & Data Vital Signs (Past 12 Hours) Vital Signs Pulse Resp BP Pulse Ox O2 Del Method 05/23/23 07:16 67 05/23/23 05:00 72 19 91 05/23/23 04:00 81 27 H 93 05/23/23 04:00 111/60 05/23/23 03:53 Room Air 05/23/23 03:00 77 15 93 05/23/23 02:00 71 17 92 05/23/23 01:00 81 21 92 05/23/23 00:22 139/69 05/23/23 00:22 89 12 91 05/23/23 00:00 69 18 92 05/22/23 23:00 81 21 93 05/22/23 22:23 87 05/22/23 22:01 111/72 05/22/23 22:01 77 15 05/22/23 22:00 71 15 05/22/23 21:00 79 20 117/81 92 Laboratory Results 05/23/23 04:09 05/23/23 04:09 PG Care Time/CCT Total # of Minutes Spent Total Time Spent with Patient: Total time spent is greater than 50% in coordination of care (as documented) at patient's floor/unit and/or counseling patient: Coding Level of Care Code 73337 SUB INP/OBS CARE 3/50MIN Diagnoses COVID-19 U07.1 COPD exacerbation J44.1 Non-ST elevation [place] (NSTEMI) I21.4 Shortness of breath R06.02 Hypoxia R09.02 Tobacco abuse Z72.0 CAD (coronary artery disease) I25.10 Depression F32.9
[2023-05-23] MEDS ORDERED: PNEUMOCOCCAL VACCINE (PCV20) 20-VAL CONJ-DIP CRM/PF 0.5 ML SYR IM ONE (09:00)
[2023-05-23] MEDS ORDERED: INFLUENZA VIRUS QUADRIVALENT VACCINE (IIV4) 0.5 ML SYR IM ONE (09:00)
[2023-05-23] MEDS: NICOTINE 21 MG/24 HR TDSY TD SCH (09:52)
--- NOTE | 2023-05-23 10:14 | Electrocardiogram Report ---
Test Reason : Blood Pressure : / mmHG Vent. Rate : 076 BPM Atrial Rate : 076 BPM P-R Int : 166 ms QRS Dur : 092 ms QT Int : 358 ms P-R-T Axes : 070 092 066 degrees QTc Int : 402 ms Normal sinus rhythm Rightward axis Borderline ECG When compared with ECG of 04-FEB-2022 14:59, No significant change was found Confirmed by Sundeep Chambers ([id number]) on 05/23/2023 10:14:23 AM Referred By: REFERRED SELF Confirmed By:Sundeep Chambers
[2023-05-23] MEDS ORDERED: ZOLPIDEM TARTRATE 5 MG TAB PO PRN (11:05)
--- NOTE | 2023-05-23 12:29 | XCELERA ---
[id number]
[2023-05-23] MEDS: AMOXICILLIN/CLAVULANATE 875 MG TAB PO SCH (15:17)
[2023-05-23] MEDS ORDERED: REMDESIVIR 100 MG in SODIUM CHLORIDE 0.9% 230 ML IV SCH (20:00)
[2023-05-23] MEDS ORDERED: METOPROLOL TARTRATE 25 MG TAB PO SCH (21:00)
[2023-05-23] MEDS ORDERED: CITALOPRAM 20 MG TAB PO SCH (21:00)
[2023-05-23] MEDS ORDERED: ROSUVASTATIN CALCIUM 10 MG TAB PO SCH (21:00)
[2023-05-24 06:00] LABS: Basophils # (auto) 0.01 K/uL (0.00-0.20); Basophils % (auto) 0.1 %; Eosinophils # (auto) 0.01 K/uL (0.00-0.50); Eosinophils % (auto) 0.1 %; Hematocrit (blood only) 43.4 % (42.0-52.0); Hemoglobin 14.8 g/dl (14.0-18.0); Immature Granulocytes # (auto) 0.04 K/uL (0.01-0.20); Immature Granulocytes % (auto) 0.3 %; Lymphocytes # (auto) 1.87 K/uL (1.20-3.40); Lymphocytes % (auto) 15.8 %; Mean Corpuscular Hemoglobin 29.8 pg (25.0-34.0); Mean Corpuscular Hgb Conc 34.1 g/dL (32.0-36.0); Mean Corpuscular Volume 87.3 fL (80.0-100.0); Mean Platelet Volume 11.5 fL (9.4-12.4); Monocytes # (auto) 0.95 K/uL (0.11-0.59); Monocytes % (auto) 8.1 %; Neutrophils # (auto) 8.92 K/uL (1.40-6.50); Neutrophils % (auto) 75.6 %; Platelet Count 163 K/uL (130-400); RDW Coefficient of Variation 13.5 % (11.5-14.5); RDW Standard Deviation 43.3 fL (36.4-46.3); Red Blood Count 4.97 M/uL (4.70-6.10)
[2023-05-24 06:14] LABS: Albumin Globulin Ratio 1.7 (0.9-2); BUN Creatinine Ratio 19.8 (10-20); Bilirubin,Total 0.3 mg/dl (0.2-1.0); Calcium 8.9 mg/dl (8.6-10.3); Est GFR (African American) 103.6 ml/min; Est GFR (Non-African American) 89.4 ml/min; Globulin 2.3 gm/dl (2.5-4.0); Magnesium 1.9 mg/dl (1.7-2.4); Potassium 4.1 mmol/L (3.5-5.1); Total Protein 6.3 gm/dl (6.0-8.3)
[2023-05-24] MEDS: NICOTINE 21 MG/24 HR TDSY TD SCH (08:07)
[2023-05-24] MEDS: dexAMETHasone 6 MG in SYRINGE 0 ML IV SCH (08:07)
[2023-05-24] MEDS: AMOXICILLIN/CLAVULANATE 875 MG TAB PO SCH (08:08)
[2023-05-24] MEDS: ASPIRIN 81 MG ECTAB PO SCH (08:08)
[2023-05-24] MEDS ORDERED: ENOXAPARIN INJ 40 MG/0.4 ML SYR SQ SCH (09:00)
--- NOTE | 2023-05-24 10:04 | Electrocardiogram Report ---
Test Reason : Blood Pressure : / mmHG Vent. Rate : 059 BPM Atrial Rate : 059 BPM P-R Int : 176 ms QRS Dur : 082 ms QT Int : 422 ms P-R-T Axes : 080 084 063 degrees QTc Int : 417 ms Poor data quality, interpretation may be adversely affected Sinus bradycardia Otherwise normal ECG When compared with ECG of 22-MAY-2023 18:06, No significant change was found Confirmed by Sundeep Chambers ([id number]) on 05/24/2023 10:04:31 AM Referred By: REFERRED SELF Confirmed By:Sundeep Chambers
--- NOTE | 2023-05-24 10:04 | Electrocardiogram Report ---
Test Reason : Blood Pressure : / mmHG Vent. Rate : 058 BPM Atrial Rate : 058 BPM P-R Int : 174 ms QRS Dur : 092 ms QT Int : 406 ms P-R-T Axes : 081 089 039 degrees QTc Int : 398 ms Sinus bradycardia Otherwise normal ECG When compared with ECG of 24-MAY-2023 05:51, (unconfirmed) No significant change was found Confirmed by Sundeep Chambers ([id number]) on 05/24/2023 10:04:38 AM Referred By: REFERRED SELF Confirmed By:Sundeep Chambers
--- NOTE | 2023-05-24 15:52 | Discharge Summary ---
Date of Service May 24, 2023 Admission HPI Per Admitting Provider The patient is a 63-year-old male with a past medical history including tobacco abuse, depression, hypertension, COPD, chronic sinusitis, CAD with angioplasty and stented coronary artery, and sleep deprivation. He presents to the emergency department with 3 days of worsening shortness of breath, chest tightness and loose stools. He does also report generalized weakness and fatigue. He later reported that he feels like a tooth in his right maxillary area is infected, as he can feel drainage from it going down the back of his throat. He continues to smoke 1 pack/day. Pulse ox upon arrival was 92% on room air. Workup in the emergency department included BioFire test positive for COVID-19. Initial troponin elevation at 34.3 with follow-up 34.0. From the ED the patient received the following: DuoNeb treatment, magnesium sulfate 1 g IV, Solu-Medrol 125 mg IV, and Tylenol 1 g IV. Principal Diagnosis COVID-19 causing acute exacerbation of COPD Discharge Exam PHYSICAL EXAMINATION Last 24h vital signs reviewed, see documentation in flowsheet General: comfortable appearing, no distress HEENT: Normocephalic, atraumatic, pupils round and equal, sclerae anicteric, no conjunctival injection, moist mucus membranes Lungs: comfortable respiratory effort. slightly coarse bilaterally diffuse mild expiratory wheezes, prolonged exp phase, good air movement Heart: Regular rate and rhythm, no murmurs. No JVD. Abdomen: Soft, nontender, nondistended. Bowel sounds present. Extremities: Warm, dry, well-perfused. No extremity edema. Neuro: Alert and oriented x 4, face symmetric, moves 4 extremities well Psych: Normal affect and behavior Discharge Data Allergies Allergy/AdvReac Type Severity Reaction Status Date / Time Iodinated Contrast Media Allergy Severe HIVES Verified 05/22/23 20:51 atorvastatin AdvReac Intermediate FATIQUE, Verified 05/22/23 20:51 OVER TIRED. Consultations 05/22/23 22:20 ED Decision to Admit Stat 05/24/23 11:13 Consult JEAN PIERRE environmental engineering aide Routine Ordered Studies Chest X-Ray 05/22/23 18:02 XR chest 1V portable HISTORY: 63 years-old Male cough, sob acute cough with shortness of breath COMPARISON: 02/04/2022 TECHNIQUE: AP view of the chest FINDINGS: Cardiomediastinal and hilar silhouettes are within normal limits. No pneumothorax, pleural effusion or airspace consolidation. The bones appear intact. IMPRESSION: No acute process. ACT 112: Negative or not required by law. The above report was generated using voice recognition software. It may contain grammatical, syntax or spelling errors. Electronically signed by: Keron Gil M.D. 05/22/2023 7:01 PM 05/24/23 04:52 05/24/23 04:52 Hospital Course (1) COVID-19: COVID-19 causing acute exacerbation of COPD - initially hypoxic, improved now on room air since AM 05/23 - treated with remdesivir and dexamethasone - continue bronchodilators, flutter valve, incentive spirometer - discharge home today procalcitonin is negative and chest x-ray negative for focality therefore no evidence of community-acquired pneumonia, stopped azithromycin and ceftriaxone which were given on admission (2) COPD exacerbation: Treated as above. Improved but continued to have some wheezing so discharged with 5-day course of prednisone 20 mg Refilled his rx for albuterol MDI and spiriva Does not tolerate ICS well - causes insomnia (3) Non-ST elevation [place] (NSTEMI): minimally elevated troponin peaked at 34, now downtrending consistent with myocardial strain setting of respiratory illness no acute ST changes on EKGs -I personally reviewed EKG tracing - normal sinus rhythm, no ST elevations or depressions no evidence of acute coronary syndrome suspect noncardiac/ musculoskeletal chest wall pain related to coughing - tender pain near L shoulder/axilla reviewed TTE todayunchanged from previous: EF 60-65%, no regional wall motion abnormalities, borderline LVH (4) Shortness of breath: (5) Hypoxia: (6) Tobacco abuse: continue nicotine patch, 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 Robins in a long time, made referral for routine follow up with cardiology (8) Depression: Plan Tobacco use disorder- Cessation counseling done on admission, 05/24 Recommended nicotine replacement, follow up with PCP, consider bupropion or varenicline if unsuccessful Anxiety and depression- Continue citalopram 20 mg at bedtime Total Time Total Time Spent Total Time Spent (In Minutes): I personally spent: 35 minutes today on clinical care activities including: reviewing chart notes and vital signs reviewing records - primary care notes examining and counseling the patient writing orders and discharge instructions documentation Discharge Plan Discharge Items Patient Disposition: Home - Self-Care Reason For Visit: COPD EX, ELEVATED TROPONIN, COVID-19 Discharge Diagnosis: COVID-19, COPD exacerbation Activity: Resume your previous activity Non-emergency contact: Primary Care Provider Call non-emergency contact if: you have any medication questions, your symptoms worsen and your temperature is above 101 Follow-up/Referrals: Benjamín Robins MD, PhD [Physician] - (I made outpatient referral for routine follow up of your CAD) Mo Rodriges PA-C [Primary Care Provider] - Diet: Heart Healthy Addtl Attending Provider Instructions: You were treated for COVID-19 and COPD exacerbation with antiviral (remdesivir) and steroids -take prednisone 20 mg in the morning (starting tomorrow morning) for five days for your wheezing -take inhalers as directed. The albuterol is the "rescue" inhaler you can use as needed I prescribed antibiotic for your dental infection. Make an appointment with your dentists as soon as possible to get this addressed. We strongly recommend quitting smoking. Nicotine replacement helps most people quit. Follow up in primary care. I made an outpatient referral to cardiology - routine follow up with Dr. Robins or one of his colleagues for your coronary artery disease -stay on your usual medication and you should take a baby aspirin every day to prevent heart attack Adelita Maldonado MD Pending Studies at Discharge: No Stand-Alone Forms: My [facility], Smoking Cessation Medications and DC Order Prescriptions: New amoxicillin-pot clavulanate 875-125 mg Tablet 1 tab PO BIDM Qty: 14 0RF albuterol sulfate [Ventolin HFA] 90 mcg/actuation Hfa Aerosol Inhaler 2 puff inhalation QID PRN (Reason: shortness of breath or wheezing) Qty: 8.5 0RF nicotine [Nicoderm CQ] 21 mg/24 hr Patch 24 Hour 21 mg transdermal QAM Qty: 1 0RF Rx Instructions: buy over the counter, use as directed aspirin 81 mg Tablet,Delayed Release (Dr/Ec) 81 mg PO QAM Qty: 0 0RF Rx Instructions: buy over the counter. for coronary artery disease prednisone 20 mg tablet 20 mg PO DAILY 5 Days Qty: 5 0RF tiotropium bromide [Spiriva with HandiHaler] 18 mcg capsule, w/inhalation device 1 cap inhalation DAILY Qty: 30 0RF Rx Instructions: puncture 1 cap using device; one dose = 2 inhalations Continued metoprolol tartrate 25 mg Tablet 25 mg PO HS Rx Instructions: ORDERED 12.5 MG BID, PER PT "TAKE AT HS". rosuvastatin 10 mg tablet 10 mg PO HS ibuprofen 200 mg Tablet 400 mg PO QID PRN (Reason: Pain) cyclobenzaprine 10 mg tablet 10 - 20 mg PO HS PRN (Reason: Muscle Spasm) citalopram 20 mg tablet 20 mg PO HS lorazepam 0.5 mg tablet 0.5 mg PO DAILY PRN (Reason: SEVERE ANXIETY) Discharge Orders: Discharge Order (Routine); Ordered 05/24/23 Ordered By: Adelita Castillo/Other Patient Handouts: 2019 Novel Coronavirus, COPD Quit Smoking Admission Data Admit Date/Time: 05/22/23 22:23 Attending Provider: Adelita Maldonado Admit Provider: Isaiah Wu Primary Care Provider: Mo Rodriges Other Providers: Isaiah Wu Other Interventions: Discharge Summary Assessment (RN) Last Done: 05/24/23 09:43 Coding Level of Care Code 24121 INP/OBS DISCH >30 MIN Diagnoses COVID-19 U07.1 COPD exacerbation J44.1 Non-ST elevation [place] (NSTEMI) I21.4 Shortness of breath R06.02 Hypoxia R09.02 Tobacco abuse Z72.0 CAD (coronary artery disease) I25.10 Depression F32.9
== END 2023-05-24 10:48 | disposition home or self-care (01) | DRG 177 ==
LOC: ED 17:51 → SUATTDRO 22:23 → EDINP 22:23 → 2W 05-23 00:53
DX: R09.02 Hypoxemia; I21.4 Non-ST elevation (NSTEMI) myocardial infarction; Z79.899 Other long term (current) drug therapy; I50.9 Heart failure, unspecified; J44.0 Chronic obstructive pulmonary disease with (acute) lower respiratory infection; Z71.6 Tobacco abuse counseling; F41.9 Anxiety disorder, unspecified; Z88.8 Allergy status to other drugs, medicaments and biological substances; J44.1 Chronic obstructive pulmonary disease with (acute) exacerbation; Z91.041 Radiographic dye allergy status; I11.0 Hypertensive heart disease with heart failure; Z95.5 Presence of coronary angioplasty implant and graft; E78.5 Hyperlipidemia, unspecified; F17.210 Nicotine dependence, cigarettes, uncomplicated; F32.A Depression, unspecified; R19.7 Diarrhea, unspecified; E11.9 Type 2 diabetes mellitus without complications; K04.7 Periapical abscess without sinus; I25.10 Atherosclerotic heart disease of native coronary artery without angina pectoris; I25.2 Old myocardial infarction; U07.1 COVID-19

== ENCOUNTER 2023-07-01 15:29 | Inpatient (IN) ==
--- NOTE | 2023-07-01 17:14 | XRay Report ---
XR chest 1V portable HISTORY: 63 years-old Male Dyspnea acute shortness of breath COMPARISON: 05/22/2023 TECHNIQUE: PA view of the chest FINDINGS: Cardiomediastinal and hilar silhouettes are within normal limits. There are 2 cylindrical metallic de nsity structures project over the lower chest, likely external to the patient. No pneumothorax, pleur al effusion or airspace consolidation. The bones appear intact. IMPRESSION: No acute process. ACT 112: Negative or not required by law. The above report was generated using voice recognition software. It may contain grammatical, syntax o r spelling errors. Electronically signed by: Keron Gil M.D. 07/01/2023 5:12 PM
[2023-07-01] MEDS: dexAMETHasone**PF** 10 MG/ML VIAL IV ONE (19:42)
[2023-07-01] MEDS: ALBUT/IPRATROP 3MG/0.5MG NEB 3 ML VIAL NEB ONE (19:43)
[2023-07-01 19:48] LABS: Basophils # (auto) 0.02 K/uL (0.00-0.20); Basophils % (auto) 0.2 %; Eosinophils # (auto) 0.04 K/uL (0.00-0.50); Eosinophils % (auto) 0.4 %; Hematocrit (blood only) 46.2 % (42.0-52.0); Hemoglobin 15.4 g/dl (14.0-18.0); Immature Granulocytes # (auto) 0.02 K/uL (0.01-0.20); Immature Granulocytes % (auto) 0.2 %; Lymphocytes # (auto) 1.37 K/uL (1.20-3.40); Lymphocytes % (auto) 14.2 %; Mean Corpuscular Hemoglobin 29.7 pg (25.0-34.0); Mean Corpuscular Hgb Conc 33.3 g/dL (32.0-36.0); Monocytes # (auto) 0.96 K/uL (0.11-0.59); Monocytes % (auto) 9.9 %; Neutrophils # (auto) 7.25 K/uL (1.40-6.50); Neutrophils % (auto) 75.1 %; Platelet Count 153 K/uL (130-400); RDW Coefficient of Variation 13.6 % (11.5-14.5); RDW Standard Deviation 44.6 fL (36.4-46.3); Red Blood Count 5.19 M/uL (4.70-6.10); White Blood Count 9.66 K/ul (4.8-10.8)
[2023-07-01 20:05] LABS: Albumin Globulin Ratio 1.5 (0.9-2); Albumin Level 4.5 gm/dl (3.4-5.0); BUN Creatinine Ratio 13.7 (10-20); Bilirubin,Total 1.2 mg/dl (0.2-1.0); Calcium 9.4 mg/dl (8.6-10.3); Creatinine Clr Calc Pharmacy 80.7 ml/min; Est GFR (African American) 90.2 ml/min; Est GFR (Non-African American) 77.9 ml/min; Globulin 3.1 gm/dl (2.5-4.0); Potassium 4.1 mmol/L (3.5-5.1); Total Protein 7.6 gm/dl (6.0-8.3)
[2023-07-01 20:34] LABS: Adenovirus PCR Not Detected (NotDetected); Bordetella parapertussis PCR Not Detected (NotDetected); Bordetella pertussis PCR Not Detected (NotDetected); Chlamydia pneumoniae PCR Not Detected (NotDetected); Coronavirus 229E PCR Not Detected (NotDetected); Coronavirus CoV-2 (COVID19)PCR Not Detected (NotDetected); Coronavirus HKU1 PCR Not Detected (NotDetected); Coronavirus NL63 PCR Not Detected (NotDetected); Coronavirus OC43PCR Not Detected (NotDetected); Human Metapneumovirus PCR Not Detected (NotDetected); Influenza A PCR Not Detected (NotDetected); Influenza B PCR Not Detected (NotDetected); Mycoplasma pneumoniae PCR Not Detected (NotDetected); Parainfluenza Virus 1 PCR Not Detected (NotDetected); Parainfluenza Virus 2 PCR Not Detected (NotDetected); Parainfluenza Virus 3 PCR Not Detected (NotDetected); Parainfluenza Virus 4 PCR Not Detected (NotDetected); Respiratory Syncytial VirusPCR Not Detected (NotDetected); Rhinovirus/Enterovirus PCR Not Detected (NotDetected)
[2023-07-01] MEDS: diphenhydrAMINE 50 MG/ML VIAL IV STA (21:09)
[2023-07-01] MEDS: OPTIRAY 320 125ml IV ONE (21:26)
--- NOTE | 2023-07-01 21:46 | CT Scan Report ---
Exam(s): CTA CHEST IV Amt: 116ml EXAM: CT Chest With Intravenous Contrast CLINICAL HISTORY: Reason for exam: PE. TECHNIQUE: Axial computed tomographic images of the chest with intravenous contrast. CTDI is 39 mGy and DLP is 846.86 mGy-cm. Automated exposure control was utilized for the study. A dose lowering technique was utilized adhering to the principles of ALARA. COMPARISON: No relevant prior studies available. FINDINGS: Pulmonary arteries: Unremarkable. No pulmonary embolism. Aorta: 3.7 cm aneurysmal dilatation of the ascending aorta. Coronary artery calcification. Lungs: Patchy nodular interstitial infiltrates within the right lower lobe. No mass. Pleural space: Unremarkable. No significant effusion. No pneumothorax. Heart: Unremarkable. No cardiomegaly. No significant pericardial effusion. No evidence of RV dysfunction. Bones/joints: No acute fracture. No dislocation. Soft tissues: Unremarkable. Lymph nodes: Unremarkable. No enlarged lymph nodes. IMPRESSION: No acute findings in the visualized arteries of the chest. Electronically signed by: Liu Kimble MD 07/01/23 21:45 PM
--- NOTE | 2023-07-02 00:12 | History & Physical Report ---
Date of Service July 01, 2023 Assessment & Plan (1) COPD exacerbation: Plan: - Acute exacerbation of COPD in the setting of recent COVID infection - s/p 6mg Decadron, duoneb in the ED - CXR/CTA without acute process, no signs of superimposed bacterial PNA in the setting of recent COVID infection - Plan for DuoNeb qid, continue Ventolin prn, Azithromycin 500mg IV, methylprednisolone 60mg IV daily - May benefit from updated spirometry as an outpatient and addition of daily LABA+LAMA combination inhaler (2) CAD (coronary artery disease): Plan: - continue metoprolol, asp rosuvastatin (3) Tobacco abuse: Plan: - over 40 pack years, recently has been able to cut back from 1 pack per day to 1/2 pack per day - declines nicotine patch while inpatient (4) Depression: Plan: - continue citalopram, Ativan prn Plan Diet: Heart Healthy VTE Prophylaxis: Lovenox Code: Full History of Present Illness Primary Care Provider: Mo Rodriges 63 year old male with a past medical history of COPD, tobacco use, depression, anxiety, CAD with angioplasty and stented coronary artery presenting with increased shortness of breath/work of breathing over the past 2 day. Worst last evening; used his albuterol inhaler >12 times. Was recently admitted from 05/23- 05/24 with COVID-19 infection and COPD exacerbation. He is a current everyday smoker, has been able to cut back from pack per day to 1/2 pack per day. Denies chest pain, nausea, vomiting, headache, cough, fever/chills. ED course significant for CXR/CTA without acute process, Resp Biofire negative, mildly hypoxic requiing 3L NC. Was given 6mg Decadron, Duoneb in the ED. Allergies Allergy/AdvReac Type Severity Reaction Status Date / Time Iodinated Contrast Media Allergy Severe HIVES Verified 07/01/23 20:14 atorvastatin AdvReac Intermediate FATIQUE, Verified 07/01/23 20:14 OVER TIRED. Home Medications Medication Instructions Recorded Confirmed Type metoprolol tartrate 25 mg tablet 12.5 mg PO BID 01/14/18 07/01/23 History ibuprofen 200 mg tablet 400 mg PO QID PRN Pain 06/25/18 07/01/23 History rosuvastatin 10 mg tablet 10 mg PO HS 06/18/19 07/01/23 History citalopram 20 mg tablet 20 mg PO HS 06/17/21 07/01/23 History cyclobenzaprine 10 mg tablet 10 - 20 mg PO HS PRN Muscle Spasm 06/17/21 07/01/23 History lorazepam 0.5 mg tablet 0.5 mg PO DAILY PRN SEVERE ANXIETY 05/22/23 07/01/23 History albuterol sulfate 90 mcg/actuation 2 puff inhalation QID PRN 05/24/23 07/01/23 Rx aerosol inhaler (Ventolin HFA) shortness of breath or wheezing #8.5 grams aspirin 81 mg tablet,delayed 81 mg PO QAM #0 tabs 05/24/23 07/01/23 Rx release Past Med/Surg History Medical History History of prostate cancer Diabetes Pneumonia (11/17/12) Tobacco abuse Depression Benign essential hypertension Congestive heart failure Anxiety Migraine Hypertension Hyperlipidemia REFUSING MEDS Myocardial Infarction 10/2012---LEFT ARM NUMB, SOB--FOLLOWS WITH DR. OROZCO Chronic obstructive pulmonary disease INHALER PRN Surgical History History of colonoscopy History of tooth extraction WISDOM TEETH History of endoscopic sinus surgery History of heart artery stent 10/2012 @ [facility] X1 STENT History of cardiac cath X3--10/2012 (X1 STENT), 2013, 2016 History of bronchoscopy 2016 @ [facility] DR. ZEPEDA Family History Son Family history of reaction to anesthesia DIFFICULT TO WAKE UP Sister Family history of diabetes mellitus Other Asthma Cancer Diabetes Heart disease Lung disease Social History Smoking Status: Current every day smoker Tobacco Type: Cigarettes packs per day: 1.5; Cigarettes Per Day: 20; Second Hand Exposure: Yes; Do You Dip or Chew Tobacco: No; Hx Alcohol Use: No Hx Substance Use: No Preferred Language: Syrian Communication Ability: Effective International Exchange Coordinator Required: No Beliefs That Will Affect Care: None Current Living Situation: Spouse Current Living Situation Comment: LIVES WITH AND SON Other Information That Helps Us Care for You: No Feels Safe at Home: Yes Safety Concerns: Feels Safe At This Time Assistive Devices: None Review of Systems Review of Systems: As per above Physical Exam Physical Exam: Constitutional: well-appearing, no acute distress HEENT: NCAT, no conjunctival injection CV: regular rhythm, no murmur appreciated, extremities well-perfused, no LE edema Resp: +wheezing throughout with diminished breath sounds, no increased work of breathing GI: soft, nondistended, nontender, BS normoactive MSK: no gross deformities appreciated Skin: warm, dry, no rash appreciated Neuro: alert, oriented, no focal neurologic deficit appreciated Results & Data Results & Data Vital Signs (Past 12 Hours) Vital Signs Temp Pulse Pulse Resp BP BP Pulse Ox 07/01/23 22:50 88 24 94 07/01/23 22:40 98 H 25 H 87 L 07/01/23 22:30 114/69 07/01/23 22:30 97 H 24 07/01/23 22:20 101 H 23 93 07/01/23 22:10 102 H 25 H 95 07/01/23 22:00 101 H 30 H 124/75 95 07/01/23 22:00 101 H 30 H 95 07/01/23 21:50 104 H 29 H 94 07/01/23 21:40 103 H 27 H 96 07/01/23 21:10 105 H 23 94 07/01/23 21:00 105 H 25 H 96 07/01/23 20:50 104 H 23 97 07/01/23 20:40 99 H 19 97 07/01/23 20:30 101 H 21 97 07/01/23 20:20 104 H 24 97 07/01/23 20:10 103 H 29 H 99 07/01/23 20:00 99 H 34 H 116/82 98 07/01/23 20:00 99 H 34 H 98 07/01/23 19:50 28 H 97 07/01/23 19:47 103 H 33 H 141/90 H 97 07/01/23 19:46 103 H 33 H 97 07/01/23 19:41 97 07/01/23 19:40 104 H 40 H 97 07/01/23 19:39 105 H 36 H 152/97 H 98 07/01/23 19:30 102 H 33 H 97 07/01/23 19:30 108 H 07/01/23 19:29 110 H 28 H 96 07/01/23 15:32 91 07/01/23 15:32 36.6 C 99 H 18 150/82 H 91 O2 Del Method O2 Flow Rate 07/01/23 22:50 3 07/01/23 22:40 Room Air 07/01/23 22:30 07/01/23 22:30 07/01/23 22:20 07/01/23 22:10 07/01/23 22:00 07/01/23 22:00 07/01/23 21:50 07/01/23 21:40 07/01/23 21:10 07/01/23 21:00 07/01/23 20:50 07/01/23 20:40 07/01/23 20:30 07/01/23 20:20 07/01/23 20:10 07/01/23 20:00 07/01/23 20:00 07/01/23 19:50 07/01/23 19:47 07/01/23 19:46 07/01/23 19:41 Nasal Cannula 4 07/01/23 19:40 07/01/23 19:39 Nasal Cannula 07/01/23 19:30 07/01/23 19:30 07/01/23 19:29 07/01/23 15:32 Room Air 07/01/23 15:32 Room Air Supervising Physician Co-Signing Physician Notes Attending addendum: I have physically seen this patient, have supervised the medical residents activities, and agree with the H&P unless as otherwise noted. Assessment and Plan: COPD exacerbation- Admit to monitored bed From the ED received dexamethasone 6 mg IV, DuoNeb and Benadryl 0.5 mg IV. History of iodinated contrast media reaction Chest x-ray negative CT angiography negative for PE Duonebs every 4 hours while awake and every 2 hours when necessary. Azithromycin 500 mg IV daily Methylprednisolone 60 mg IV daily Albuterol HFA 2 puffs 4 times daily as needed CAD- Continue metoprolol with hold parameters Continue rosuvastatin, check a fasting lipid panel Tobacco abuse- Cessation counseling Refuses nicotine patch at this time Depression/anxiety- Continue citalopram daily and Ativan as needed Resident Activity Tracking Resident Involvement: Resident Care Provided Care Provided: Adult Hospital Medicine
[2023-07-02] MEDS ORDERED: ALBUTEROL HFA 8 GM INHALER INH PRN (01:20)
--- NOTE | 2023-07-02 01:21 | Emergency Department Note ---
Impression & Plan Acute exacerbation of chronic obstructive pulmonary disease, Acute hypoxic respiratory failure ED Provider Note CHIEF COMPLAINT: Shortness of breath, cough HISTORY OF PRESENT ILLNESS: This 63-year-old male patient presents emergency department with complaints of shortness of breath. Patient states he has been short of breath and coughing for 2 to 3 days. Last night he had very difficult time sleeping and does not feel he can go through that again. He says he has had albuterol least 12 times overnight. He denies any fevers, sputum production. He is a 1 pack/day smoker. REVIEW OF SYSTEMS: A review of systems was performed with positives and pertinent negatives listed in the history of present illness. 10 systems were reviewed and are otherwise negative. ALLERGIES: see below MEDICATIONS: see below PMH: see below SOCIAL HISTORY: see below DDx: Pneumonia, PE, COPD exacerbation, cardiac arrhythmia, pleural effusion among others. PHYSICAL EXAM: Vital signs reviewed. General: Well-appearing 63 yo male, in no significant distress. HEENT: No scleral icterus, PERRLA, neck supple. MMM Cardiovascular: Regular rate and rhythm, no extra sounds. Pulmonary: Coarse breath sounds to auscultation bilaterally, increased work of breathing on nasal cannula oxygen. Abdomen: Soft, nontender, nondistended, positive bowel sounds. Musculoskeletal: Atraumatic, no peripheral edema. Neurologic: Patient awake alert and oriented x 3, speech is clear Skin: Warm, dry, no rash EMERGENCY DEPARTMENT COURSE/MDM: This patient was evaluated and appeared to be in some discomfort. Patient was advised to continue oxygen with a slightly increased work of breathing. IV access was obtained and laboratory work was drawn. The patient was given an hour-long DuoNeb treatment and IV dexamethasone as his family stated he had tested positive for COVID-19. Chest x-ray was performed and reveals no evidence of focal lung consolidation or failure. CT angiogram of the chest was performed after the patient was pretreated due to previous reaction to the contrast. This study is negative for PE. Patient's respiratory bio fire panel is negative. I suspect he is suffering from a COPD exacerbation and will require further evaluation and management overnight due to hypoxia with any exertion. Hospitalist service was contacted and agreed to evaluate the patient. Patient family aware of the plan and agreed. MONITORING: An order for cardiac monitoring was placed and the patient is noted to be in a sinus tachycardia at 101 beats per minute. RADIOLOGY: Chest x-ray to my interpretation reveals no evidence of focal lung consolidation or failure, otherwise defer to radiology's over read. CT angiogram of the chest per radiology reveals no evidence of PE. Please see final read below. EKG: To my interpretation reveals normal sinus rhythm at 100 bpm. Biatrial enlargement, pulmonary disease pattern. QTc of 425. No PVC, no PAC. No significant change from previous dated May 24, 2023. DISPOSITION: Admission Past Med/Surg History Medical History History of prostate cancer Diabetes Pneumonia (11/17/12) Tobacco abuse Depression Benign essential hypertension Congestive heart failure Anxiety Migraine Hypertension Hyperlipidemia REFUSING MEDS Myocardial Infarction 10/2012---LEFT ARM NUMB, SOB--FOLLOWS WITH DR. OROZCO Chronic obstructive pulmonary disease INHALER PRN Surgical History History of colonoscopy History of tooth extraction WISDOM TEETH History of endoscopic sinus surgery History of heart artery stent 10/2012 @ [facility] X1 STENT History of cardiac cath X3--10/2012 (X1 STENT), 2013, 2016 History of bronchoscopy 2016 @ [facility] DR. ZEPEDA Family History Son Family history of reaction to anesthesia DIFFICULT TO WAKE UP Sister Family history of diabetes mellitus Other Asthma Cancer Diabetes Heart disease Lung disease Social History Smoking Status: Current every day smoker Tobacco Type: Cigarettes packs per day: 1.5; Cigarettes Per Day: 20; Second Hand Exposure: Yes; Do You Dip or Chew Tobacco: No; Hx Alcohol Use: No Hx Substance Use: No Preferred Language: Bengali Communication Ability: Effective Wort Extractor Required: No Beliefs That Will Affect Care: None Current Living Situation: Spouse Current Living Situation Comment: LIVES WITH AND SON Feels Safe at Home: Yes Assistive Devices: None Allergies Allergies Allergy/AdvReac Type Severity Reaction Status Date / Time Iodinated Contrast Media Allergy Severe HIVES Verified 07/01/23 20:14 atorvastatin AdvReac Intermediate FATIQUE, Verified 07/01/23 20:14 OVER TIRED. Home Meds Home Medications Medication Instructions Recorded Confirmed metoprolol tartrate 25 mg tablet 12.5 mg PO BID 01/14/18 07/01/23 ibuprofen 200 mg tablet 400 mg PO QID PRN Pain 06/25/18 07/01/23 rosuvastatin 10 mg tablet 10 mg PO HS 06/18/19 07/01/23 citalopram 20 mg tablet 20 mg PO HS 06/17/21 07/01/23 cyclobenzaprine 10 mg tablet 10 - 20 mg PO HS PRN Muscle Spasm 06/17/21 07/01/23 lorazepam 0.5 mg tablet 0.5 mg PO DAILY PRN SEVERE ANXIETY 05/22/23 07/01/23 Previous Rx's Medication Instructions Recorded albuterol sulfate 90 mcg/actuation 2 puff inhalation QID PRN 05/24/23 aerosol inhaler (Ventolin HFA) shortness of breath or wheezing #8.5 grams aspirin 81 mg tablet,delayed 81 mg PO QAM #0 tabs 05/24/23 release doxycycline hyclate 100 mg capsule 100 mg PO BID #7 caps 07/04/23 prednisone 20 mg tablet See Rx Instructions .Route 07/04/23 .COMPLEX #10 tabs umeclidinium 62.5 mcg-vilanterol 1 inh inhalation DAILY #0 ea 07/04/23 25 mcg/actuation powdr for inhalation (Anoro Ellipta) Results & Data (ED) Vital Signs Vital Signs - 24 hr 07/01/23 15:32 07/01/23 15:32 07/01/23 19:29 Temperature 36.6 C Temperature Source Temporal Artery Scan Pulse Rate 99 H 110 H Pulse Rate [Finger] Pulse Rate from SpO2 Sensor 109 H Respiratory Rate 18 28 H Respiratory Effort / Characteristics Non-Labored Spontaneous Respiratory Depth Normal Respiratory Pattern Regular Blood Pressure 150/82 H Blood Pressure [Left Arm] Blood Pressure Mean 104 Blood Pressure Mean [Left Arm] Blood Pressure Position Sitting Pulse Oximetry 91 91 96 Oxygen Delivery Method Room Air Room Air Oxygen Flow Rate Sepsis Recent Fever Within 48 Hours No Sepsis New/Unexplained Change in Mental Status N/A Sepsis Action Taken by Nursing No Action Required 07/01/23 19:30 07/01/23 19:30 07/01/23 19:39 Temperature Temperature Source Pulse Rate 108 H 102 H Pulse Rate [Finger] 105 H Pulse Rate from SpO2 Sensor 102 H Respiratory Rate 33 H 36 H Respiratory Effort / Characteristics Respiratory Depth Respiratory Pattern Blood Pressure Blood Pressure [Left Arm] 152/97 H Blood Pressure Mean Blood Pressure Mean [Left Arm] 115 Blood Pressure Position Pulse Oximetry 97 98 Oxygen Delivery Method Nasal Cannula Oxygen Flow Rate Sepsis Recent Fever Within 48 Hours Sepsis New/Unexplained Change in Mental Status Sepsis Action Taken by Nursing 07/01/23 19:40 07/01/23 19:41 07/01/23 19:46 Temperature Temperature Source Pulse Rate 104 H 103 H Pulse Rate [Finger] Pulse Rate from SpO2 Sensor 106 H 103 H Respiratory Rate 40 H 33 H Respiratory Effort / Characteristics Respiratory Depth Respiratory Pattern Blood Pressure Blood Pressure [Left Arm] Blood Pressure Mean Blood Pressure Mean [Left Arm] Blood Pressure Position Pulse Oximetry 97 97 97 Oxygen Delivery Method Nasal Cannula Oxygen Flow Rate 4 Sepsis Recent Fever Within 48 Hours Sepsis New/Unexplained Change in Mental Status Sepsis Action Taken by Nursing 07/01/23 19:47 07/01/23 19:50 07/01/23 20:00 Temperature Temperature Source Pulse Rate 103 H 99 H Pulse Rate [Finger] Pulse Rate from SpO2 Sensor 102 H 97 H Respiratory Rate 33 H 28 H 34 H Respiratory Effort / Characteristics Respiratory Depth Respiratory Pattern Blood Pressure 141/90 H Blood Pressure [Left Arm] Blood Pressure Mean 102 Blood Pressure Mean [Left Arm] Blood Pressure Position Pulse Oximetry 97 97 98 Oxygen Delivery Method Oxygen Flow Rate Sepsis Recent Fever Within 48 Hours Sepsis New/Unexplained Change in Mental Status Sepsis Action Taken by Nursing 07/01/23 20:00 07/01/23 20:10 07/01/23 20:20 Temperature Temperature Source Pulse Rate 99 H 103 H 104 H Pulse Rate [Finger] Pulse Rate from SpO2 Sensor 104 H 103 H Respiratory Rate 34 H 29 H 24 Respiratory Effort / Characteristics Respiratory Depth Respiratory Pattern Blood Pressure 116/82 Blood Pressure [Left Arm] Blood Pressure Mean 97 Blood Pressure Mean [Left Arm] Blood Pressure Position Pulse Oximetry 98 99 97 Oxygen Delivery Method Oxygen Flow Rate Sepsis Recent Fever Within 48 Hours Sepsis New/Unexplained Change in Mental Status Sepsis Action Taken by Nursing 07/01/23 20:30 07/01/23 20:40 07/01/23 20:50 Temperature Temperature Source Pulse Rate 101 H 99 H 104 H Pulse Rate [Finger] Pulse Rate from SpO2 Sensor 101 H 99 H 104 H Respiratory Rate 21 19 23 Respiratory Effort / Characteristics Respiratory Depth Respiratory Pattern Blood Pressure Blood Pressure [Left Arm] Blood Pressure Mean Blood Pressure Mean [Left Arm] Blood Pressure Position Pulse Oximetry 97 97 97 Oxygen Delivery Method Oxygen Flow Rate Sepsis Recent Fever Within 48 Hours Sepsis New/Unexplained Change in Mental Status Sepsis Action Taken by Nursing 07/01/23 21:00 07/01/23 21:10 07/01/23 21:40 Temperature Temperature Source Pulse Rate 105 H 105 H 103 H Pulse Rate [Finger] Pulse Rate from SpO2 Sensor 105 H 106 H 104 H Respiratory Rate 25 H 23 27 H Respiratory Effort / Characteristics Respiratory Depth Respiratory Pattern Blood Pressure Blood Pressure [Left Arm] Blood Pressure Mean Blood Pressure Mean [Left Arm] Blood Pressure Position Pulse Oximetry 96 94 96 Oxygen Delivery Method Oxygen Flow Rate Sepsis Recent Fever Within 48 Hours Sepsis New/Unexplained Change in Mental Status Sepsis Action Taken by Nursing 07/01/23 21:50 07/01/23 22:00 07/01/23 22:00 Temperature Temperature Source Pulse Rate 104 H 101 H 101 H Pulse Rate [Finger] Pulse Rate from SpO2 Sensor 104 H 103 H Respiratory Rate 29 H 30 H 30 H Respiratory Effort / Characteristics Respiratory Depth Respiratory Pattern Blood Pressure 124/75 Blood Pressure [Left Arm] Blood Pressure Mean 84 Blood Pressure Mean [Left Arm] Blood Pressure Position Pulse Oximetry 94 95 95 Oxygen Delivery Method Oxygen Flow Rate Sepsis Recent Fever Within 48 Hours Sepsis New/Unexplained Change in Mental Status Sepsis Action Taken by Nursing 07/01/23 22:10 07/01/23 22:20 07/01/23 22:30 Temperature Temperature Source Pulse Rate 102 H 101 H 97 H Pulse Rate [Finger] Pulse Rate from SpO2 Sensor 102 H 101 H 100 H Respiratory Rate 25 H 23 24 Respiratory Effort / Characteristics Respiratory Depth Respiratory Pattern Blood Pressure Blood Pressure [Left Arm] Blood Pressure Mean Blood Pressure Mean [Left Arm] Blood Pressure Position Pulse Oximetry 95 93 Oxygen Delivery Method Oxygen Flow Rate Sepsis Recent Fever Within 48 Hours Sepsis New/Unexplained Change in Mental Status Sepsis Action Taken by Nursing 07/01/23 22:30 07/01/23 22:40 07/01/23 22:50 Temperature Temperature Source Pulse Rate 98 H 88 Pulse Rate [Finger] Pulse Rate from SpO2 Sensor 92 H 89 Respiratory Rate 25 H 24 Respiratory Effort / Characteristics Respiratory Depth Respiratory Pattern Blood Pressure 114/69 Blood Pressure [Left Arm] Blood Pressure Mean 79 Blood Pressure Mean [Left Arm] Blood Pressure Position Pulse Oximetry 87 L 94 Oxygen Delivery Method Room Air Oxygen Flow Rate 3 Sepsis Recent Fever Within 48 Hours Sepsis New/Unexplained Change in Mental Status Sepsis Action Taken by Nursing 07/01/23 23:00 07/01/23 23:00 07/01/23 23:10 Temperature Temperature Source Pulse Rate 92 H 92 H 90 Pulse Rate [Finger] Pulse Rate from SpO2 Sensor 90 85 Respiratory Rate 21 21 27 H Respiratory Effort / Characteristics Respiratory Depth Respiratory Pattern Blood Pressure 121/79 Blood Pressure [Left Arm] Blood Pressure Mean 90 Blood Pressure Mean [Left Arm] Blood Pressure Position Pulse Oximetry 94 94 95 Oxygen Delivery Method Nasal Cannula Oxygen Flow Rate 3 Sepsis Recent Fever Within 48 Hours Sepsis New/Unexplained Change in Mental Status Sepsis Action Taken by Nursing 07/01/23 23:20 Temperature Temperature Source Pulse Rate 94 H Pulse Rate [Finger] Pulse Rate from SpO2 Sensor 94 H Respiratory Rate 25 H Respiratory Effort / Characteristics Respiratory Depth Respiratory Pattern Blood Pressure Blood Pressure [Left Arm] Blood Pressure Mean Blood Pressure Mean [Left Arm] Blood Pressure Position Pulse Oximetry 95 Oxygen Delivery Method Oxygen Flow Rate Sepsis Recent Fever Within 48 Hours Sepsis New/Unexplained Change in Mental Status Sepsis Action Taken by Half-Way Medications Current Medication List: was personally reviewed by me Laboratory Data Attestation: I reviewed the patient's lab results. 07/03/23 06:43 07/03/23 06:43 Lab Results 07/01/23 07/01/23 Range/Units 19:33 19:34 WBC 9.66 (4.8-10.8) K/ul RBC 5.19 (4.70-6.10) M/uL Hgb 15.4 (14.0-18.0) g/dl Hct 46.2 (42.0-52.0) % MCV 89.0 (80.0-100.0) fL MCH 29.7 (25.0-34.0) pg MCHC 33.3 (32.0-36.0) g/dL RDW Std Deviation 44.6 (36.4-46.3) fL RDW Coeff of Ny 13.6 (11.5-14.5) % Plt Count 153 (130-400) K/uL MPV 11.0 (9.4-12.4) fL Immature Gran % (Auto) 0.2 % Neut % (Auto) 75.1 % Lymph % (Auto) 14.2 % Sierra % (Auto) 9.9 % Eos % (Auto) 0.4 % Baso % (Auto) 0.2 % Neut # (Auto) 7.25 H (1.40-6.50) K/uL Lymph # (Auto) 1.37 (1.20-3.40) K/uL Sierra # (Auto) 0.96 H (0.11-0.59) K/uL Eos # (Auto) 0.04 (0.00-0.50) K/uL Baso # (Auto) 0.02 (0.00-0.20) K/uL Immature Gran # (Auto) 0.02 (0.01-0.20) K/uL Sodium 135 L (136-145) mmol/L Potassium 4.1 (3.5-5.1) mmol/L Chloride 98 (98-107) mmol/L Carbon Dioxide 29 (21-32) mmol/L Anion Gap 8 (3-11) BUN 14 (6-23) mg/dl Creatinine 1.02 (0.6-1.4) mg/dl Est Cr Clr Drug Dosing 80.7 ml/min Est GFR ( Amer) 90.2 ml/min Est GFR (Non-Af Amer) 77.9 ml/min BUN/Creatinine Ratio 13.7 (10-20) Glucose 99 (70-99(Fasting)) mg/dl Calcium 9.4 (8.6-10.3) mg/dl Total Bilirubin 1.2 H (0.2-1.0) mg/dl AST 17 (13-39) U/L ALT 15 (7-52) U/L Alkaline Phosphatase 57 (34-104) U/L Total Protein 7.6 (6.0-8.3) gm/dl Albumin 4.5 (3.4-5.0) gm/dl Globulin 3.1 (2.5-4.0) gm/dl Albumin/Globulin Ratio 1.5 (0.9-2) Procalcitonin 0.05 (0-0.5) ng/ml Adenovirus (PCR) Not Detected (NotDetected) B. pertussis DNA (PCR) Not Detected (NotDetected) B.parapertussis DNA PCR Not Detected (NotDetected) C. pneumoniae DNA (PCR) Not Detected (NotDetected) Coronavirus OC43 (PCR) Not Detected (NotDetected) Coronavirus HKU1 (PCR) Not Detected (NotDetected) Coronavirus 229E (PCR) Not Detected (NotDetected) SARS-CoV-2 (PCR) Not Detected (NotDetected) Coronavirus NL63 (PCR) Not Detected (NotDetected) Human Metapneumovir PCR Not Detected (NotDetected) Influenza Type A (PCR) Not Detected (NotDetected) Influenza Type B (PCR) Not Detected (NotDetected) M. pneumoniae (PCR) Not Detected (NotDetected) Parainfluenza 1 (PCR) Not Detected (NotDetected) Parainfluenza 2 (PCR) Not Detected (NotDetected) Parainfluenza 3 (PCR) Not Detected (NotDetected) Parainfluenza 4 (PCR) Not Detected (NotDetected) RSV (PCR) Not Detected (NotDetected) Entero/Rhino (PCR) Not Detected (NotDetected) Administered Medications Discontinued Medications Albuterol (Albut/Ipratrop 3mg/0.5mg Neb 3 Ml Vial) 12 ml NEB ONE ONE; Protocol Stop: 07/01/23 19:18 Last Admin: 07/01/23 19:43 Dose: 12 ml Documented By: RODRI Albuterol (Albut/Ipratrop 3mg/0.5mg Neb 3 Ml Vial) [facility] Protocol Stop: 08/01/23 06:59 Last Admin: 07/04/23 06:22 Dose: 3 ml Documented By: Admin: 07/03/23 19:42 Dose: 3 ml Documented By: Admin: 07/03/23 15:11 Dose: 3 ml Documented By: Admin: 07/03/23 11:14 Dose: 3 ml Documented By: [id number] Admin: 07/03/23 07:30 Dose: 3 ml Documented By: Admin: 07/02/23 19:36 Dose: 3 ml Documented By: Admin: 07/02/23 15:02 Dose: 3 ml Documented By: Admin: 07/02/23 10:50 Dose: 3 ml Documented By: Admin: 07/02/23 07:45 Dose: 3 ml Documented By: RODRI(2) Albuterol (Albut/Ipratrop 3mg/0.5mg Neb 3 Ml Vial) 3 ml NEB NOW [facility]; Protocol Stop: 07/02/23 00:26 Last Admin: 07/02/23 01:28 Dose: 3 ml Documented By: RODRI Albuterol (Albut/Ipratrop 3mg/0.5mg Neb 3 Ml Vial) 3 ml NEB QIDR PRN; Protocol PRN Reason: Dyspnea Stop: 08/01/23 06:59 Last Admin: 07/04/23 14:55 Dose: 3 ml Documented By: Admin: 07/04/23 11:32 Dose: 3 ml Documented By: SLIM Aspirin (Aspirin 81 Mg Ectab) 81 mg PO QAM TREVIN Stop: 08/01/23 08:59 Last Admin: 07/04/23 08:48 Dose: 81 mg Documented By: Admin: 07/03/23 08:50 Dose: 81 mg Documented By: Admin: 07/02/23 08:38 Dose: 81 mg Documented By: COVID-19 Vaccine mRNA LNP-S (MOD) (PF) (Covid19 Vac (1vcov-Mrna) (12up)Pf 0.5 Ml Vial) 0.5 ml IM .ONCE ONE Stop: 07/03/23 15:27 Last Admin: 07/03/23 18:37 Dose: Not Given Documented By: BEVERLEY Citalopram Hydrobromide (Citalopram 20 Mg Tab) 20 mg PO HS [facility] Stop: 08/01/23 20:59 Last Admin: 07/03/23 20:40 Dose: 20 mg Documented By: Admin: 07/02/23 20:57 Dose: 20 mg Documented By: JAGUAR Dexamethasone Sodium Phosphate (DexamethasonePf 10 Mg/Ml Vial) 6 mg IV NOW ONE Stop: 07/01/23 19:18 Last Admin: 07/01/23 19:42 Dose: 6 mg Documented By: RODRI Diphenhydramine HCl (Diphenhydramine 50 Mg/Ml Vial) 25 mg IV NOW STA Stop: 07/01/23 21:05 Last Admin: 07/01/23 21:09 Dose: 25 mg Documented By: RODRI Doxycycline Hyclate (Doxycycline Hyclate 100 Mg Cap) 100 mg PO BID TREVIN Stop: 07/06/23 21:01 Last Admin: 07/04/23 08:49 Dose: 100 mg Documented By: Admin: 07/03/23 20:40 Dose: 100 mg Documented By: Admin: 07/03/23 08:50 Dose: 100 mg Documented By: Admin: 07/02/23 20:57 Dose: 100 mg Documented By: Admin: 07/02/23 08:37 Dose: 100 mg Documented By: TYRONE Enoxaparin Sodium (Enoxaparin Inj 40 Mg/0.4 Ml Syr) 40 mg SQ Q24H TREVIN Stop: 08/01/23 09:59 Last Admin: 07/04/23 09:00 Dose: 40 mg Documented By: Admin: 07/03/23 08:51 Dose: 40 mg Documented By: Admin: 07/02/23 11:13 Dose: 40 mg Documented By: WILBUR Azithromycin 500 mg/ Dextrose 255 mls @ 125 mls/hr IV Q24H TREVIN Stop: 07/09/23 01:59 Last Infusion: 07/02/23 04:00 Dose: Infused Documented By: Admin: 07/02/23 01:28 Dose: 125 mls/hr Documented By: RODRI Influenza Virus Vaccine Quadrival (Influenza Virus Quadrivalent Vaccine (Iiv4) 0.5 Ml Syr) 0.5 ml IM .ONCE ONE Stop: 07/03/23 15:27 Last Admin: 07/03/23 18:37 Dose: Not Given Documented By: BEVERLEY Ioversol (Optiray 320 125ml) 116 ml IV ONCE ONE Stop: 07/01/23 21:26 Last Admin: 07/01/23 21:26 Dose: 116 ml Documented By: LEONA Lorazepam (Lorazepam 0.5 Mg Tab) 0.5 mg PO DAILY PRN PRN Reason: SEVERE ANXIETY Stop: 08/01/23 01:19 Last Admin: 07/03/23 20:40 Dose: 0.5 mg Documented By: JESSE Melatonin (Melatonin 3 Mg Tab) 3 mg PO HS PRN PRN Reason: Sleep Stop: 08/01/23 19:47 Last Admin: 07/02/23 20:57 Dose: 3 mg Documented By: JAGUAR Metoprolol Tartrate (Metoprolol Tartrate 25 Mg Tab) 12.5 mg PO BID TREVIN Stop: 08/01/23 08:59 Last Admin: 07/04/23 08:47 Dose: 12.5 mg Documented By: Admin: 07/03/23 20:40 Dose: 12.5 mg Documented By: Admin: 07/03/23 08:50 Dose: 12.5 mg Documented By: Admin: 07/02/23 20:58 Dose: 12.5 mg Documented By: Admin: 07/02/23 08:35 Dose: 12.5 mg Documented By: TYRONE Pneumococcal 20-Valent Conj Vacc (Pneumococcal Vaccine (Pcv20) 20-Elvi Conj-Dip Crm/Pf 0.5 Ml Syr) 0.5 ml IM .ONCE ONE Stop: 07/03/23 15:27 Last Admin: 07/03/23 18:37 Dose: Not Given Documented By: BEVERLEY Prednisone (Prednisone 20 Mg Tab) 40 mg PO DAILY TREVIN Stop: 08/01/23 08:59 Last Admin: 07/04/23 08:46 Dose: 40 mg Documented By: Admin: 07/03/23 08:50 Dose: 40 mg Documented By: Admin: 07/02/23 08:36 Dose: 40 mg Documented By: TYRONE Rosuvastatin Calcium (Rosuvastatin Calcium 10 Mg Tab) 10 mg PO HS TREVIN Stop: 08/01/23 20:59 Last Admin: 07/03/23 20:40 Dose: 10 mg Documented By: Admin: 07/02/23 20:58 Dose: 10 mg Documented By: JAGUAR Umeclidinium/Vilanterol (Umeclidinium/Vilanterol 62.5/25mcg 7 Puffs/Inhaler) 1 puffs INH DAILY TREVIN Stop: 08/03/23 08:59 Last Admin: 07/04/23 08:56 Dose: 1 puffs Documented By: ADRIEN Imaging Data Radiologist's Impression: Chest X-Ray 07/01/23 15:36 XR chest 1V portable HISTORY: 63 years-old Male Dyspnea acute shortness of breath COMPARISON: 05/22/2023 TECHNIQUE: PA view of the chest FINDINGS: Cardiomediastinal and hilar silhouettes are within normal limits. There are 2 cylindrical metallic density structures project over the lower chest, likely external to the patient. No pneumothorax, pleural effusion or airspace consolidation. The bones appear intact. IMPRESSION: No acute process. ACT 112: Negative or not required by law. The above report was generated using voice recognition software. It may contain grammatical, syntax or spelling errors. Electronically signed by: Keron Gil M.D. 07/01/2023 5:12 PM Chest CTA 07/01/23 21:04 Exam(s): CTA CHEST IV Amt: 116ml EXAM: CT Chest With Intravenous Contrast CLINICAL HISTORY: Reason for exam: PE. TECHNIQUE: Axial computed tomographic images of the chest with intravenous contrast. CTDI is 39 mGy and DLP is 846.86 mGy-cm. Automated exposure control was utilized for the study. A dose lowering technique was utilized adhering to the principles of ALARA. COMPARISON: No relevant prior studies available. FINDINGS: Pulmonary arteries: Unremarkable. No pulmonary embolism. Aorta: 3.7 cm aneurysmal dilatation of the ascending aorta. Coronary artery calcification. Lungs: Patchy nodular interstitial infiltrates within the right lower lobe. No mass. Pleural space: Unremarkable. No significant effusion. No pneumothorax. Heart: Unremarkable. No cardiomegaly. No significant pericardial effusion. No evidence of RV dysfunction. Bones/joints: No acute fracture. No dislocation. Soft tissues: Unremarkable. Lymph nodes: Unremarkable. No enlarged lymph nodes. IMPRESSION: No acute findings in the visualized arteries of the chest. Electronically signed by: Liu Kimble MD 07/01/23 21:45 PM Discharge Plan Visit Data Chief Complaint: Shortness of Breath/Dyspnea Stated Complaint: SOB ED Provider: Zulema Pope Discharge Problem: Acute exacerbation of chronic obstructive pulmonary disease, Acute hypoxic respiratory failure Patient Disposition: Admitted As Inpatient Discharge Instructions Interventions: ED Discharge Assessment Last Done: 07/02/23 16:35
[2023-07-02] MEDS: AZITHROMYCIN 500 MG in DEXTROSE 5% 250 ML IV SCH (01:28)
[2023-07-02] MEDS: ALBUT/IPRATROP 3MG/0.5MG NEB 3 ML VIAL NEB STA (01:28)
[2023-07-02 05:14] LABS: Appearance Urine Clear (Clear); Bilirubin Urine Negative (Negative); Blood Urine Negative (Negative); Color Urine Yellow; Glucose Urine UA 3+ (Negative); Ketones Urine 2+ (Negative); Leukocyte Esterase Urine Negative (Negative); Nitrite Urine Negative (Negative); Protein Urine Negative (Negative); Specific Gravity Urine > 1.045 (1.000-1.030); Urobilinogen Urine Negative (Negative); pH Urine 5.5 (4.5-7.5)
--- NOTE | 2023-07-02 07:12 | Hospitalist Progress Note ---
Date of Service July 02, 2023 Assessment & Plan (1) COPD exacerbation: Plan: 63 y/o man treated for COVID-19 and COPD exacerbation late April this year admitted with acute exacerbation of COPD - dexamethasone 6 mg IV, bronchodilators, and azithromycin 500 mg IV given on admission - CTA no PE, patchy RLL infiltrates, no leukocytosis or fever. - resp biofire and COVID negative - bacterial pneumonia seems unlikely - add procalcitonin to admitting labs (resulted 0.05) and recheck in AM Plan: - continue DuoNeb qid, continue albuterol MDI prn, 500 mg po azithro x 2 more days, prednisone 40 mg daily - May benefit from updated spirometry as an outpatient and addition of daily LABA+LAMA combination inhaler. Does not tolerate ICS due to insomnia. Given Rx for spiriva last discharge - could not get filled, has new insurance?. Saw Dr. Owusu 08/2021 -schedule pulm follow up apt (2) CAD (coronary artery disease): Plan: Hx coronary artery stent TTE 05/23/23 EF 60-65% no rwma's, no valvular disease - continue metoprolol, asp rosuvastatin - follow up with Dr. Robins is scheduled 07/09 (3) Tobacco abuse: Plan: - over 40 pack years, recently has been able to cut back from 1 pack per day to 1/2 pack per day - declines nicotine patch while inpatient (4) Depression: Plan: - continue citalopram, Ativan prn Plan Diet: Heart Healthy VTE Prophylaxis: Lovenox Code: Full Admission and Anticipated Discharge Date Admission Date: July 01, 2023 Subjective dyspnea persists, started few days ago, didn't stop smoking and never got control inhaler rx because insurance wouldn't cover no chest pain. [employer] cough Physical Exam 2 Physical Exam: PHYSICAL EXAMINATION Last 24h vital signs reviewed, see documentation in flowsheet General: comfortable appearing, no distress HEENT: Normocephalic, atraumatic, pupils round and equal, sclerae anicteric, no conjunctival injection, moist mucus membranes Lungs:mildly increased respiratory effort. tight/poor air MVT, exp wheezes throughout all burgos no crackles Heart: Regular rate and rhythm, no murmurs. No JVD Abdomen: Soft, nontender, nondistended. Bowel sounds present. Extremities: Warm, dry, well-perfused. No extremity edema. Neuro: Alert and oriented x 4, face symmetric, moves 4 extremities well Psych: Normal affect and behavior Results & Data Results & Data Vital Signs (Past 12 Hours) Vital Signs Temp Pulse Pulse Resp BP BP Pulse Ox 07/02/23 05:10 84 21 94 07/02/23 05:00 94 H 21 94 07/02/23 05:00 137/76 07/02/23 04:50 67 20 92 07/02/23 04:40 81 22 95 07/02/23 04:30 72 20 94 07/02/23 04:30 121/75 07/02/23 04:30 72 20 121/75 93 07/02/23 04:20 92 H 18 93 07/02/23 04:10 84 20 92 07/02/23 04:00 94/53 L 07/02/23 04:00 96 H 21 95 07/02/23 04:00 07/02/23 03:55 102 H 20 93 07/02/23 03:40 88 21 93 07/02/23 03:30 129/84 07/02/23 03:30 92 H 21 94 07/02/23 03:20 86 21 93 07/02/23 03:10 88 20 95 07/02/23 03:00 119/88 07/02/23 03:00 91 H 20 93 07/02/23 02:50 96 H 21 94 07/02/23 02:40 94 H 20 95 07/02/23 02:30 92 H 24 118/76 94 07/02/23 02:30 92 H 24 07/02/23 02:20 85 23 07/02/23 02:10 94 H 22 96 07/02/23 02:00 90 19 119/68 95 07/02/23 02:00 90 19 95 07/02/23 01:50 96 H 24 07/02/23 01:40 95 H 19 95 07/02/23 01:31 92 H 18 119/79 94 07/02/23 01:31 92 H 18 07/02/23 01:30 90 20 07/02/23 01:20 78 21 07/02/23 01:10 96 H 18 94 07/02/23 01:07 07/02/23 01:07 36.6 C 96 H 22 128/72 95 07/02/23 01:07 07/02/23 01:00 93 H 23 93 07/02/23 01:00 128/72 07/02/23 00:50 94 H 22 94 07/02/23 00:40 98 H 28 H 94 07/02/23 00:30 94 H 19 119/77 92 07/02/23 00:30 94 H 19 92 07/02/23 00:20 99 H 25 H 92 07/02/23 00:10 101 H 23 07/02/23 00:02 96 H 23 131/94 94 07/02/23 00:02 96 H 23 94 07/02/23 00:00 95 H 19 95 07/01/23 23:50 89 24 95 07/01/23 23:40 94 H 22 94 07/01/23 23:31 103 H 17 98 07/01/23 23:31 88 20 133/82 98 07/01/23 23:30 88 20 95 07/01/23 23:25 102 H 07/01/23 23:20 94 H 25 H 95 07/01/23 23:10 90 27 H 95 07/01/23 23:00 92 H 21 121/79 94 07/01/23 23:00 92 H 21 94 07/01/23 22:50 88 24 94 07/01/23 22:40 98 H 25 H 87 L 07/01/23 22:30 114/69 07/01/23 22:30 97 H 24 07/01/23 22:20 101 H 23 93 07/01/23 22:10 102 H 25 H 95 07/01/23 22:00 101 H 30 H 124/75 95 07/01/23 22:00 101 H 30 H 95 07/01/23 21:50 104 H 29 H 94 07/01/23 21:40 103 H 27 H 96 07/01/23 21:10 105 H 23 94 07/01/23 21:00 105 H 25 H 96 07/01/23 20:50 104 H 23 97 07/01/23 20:40 99 H 19 97 07/01/23 20:30 101 H 21 97 07/01/23 20:20 104 H 24 97 07/01/23 20:10 103 H 29 H 99 07/01/23 20:00 99 H 34 H 116/82 98 07/01/23 20:00 99 H 34 H 98 03/06/24 19:50 28 H 97 07/01/23 19:47 103 H 33 H 141/90 H 97 07/01/23 19:46 103 H 33 H 97 07/01/23 19:41 97 07/01/23 19:40 104 H 40 H 97 07/01/23 19:39 105 H 36 H 152/97 H 98 07/01/23 19:30 102 H 33 H 97 07/01/23 19:30 108 H 07/01/23 19:29 110 H 28 H 96 Pulse Ox O2 Del Method O2 Del Method O2 Flow Rate O2 Flow Rate 07/02/23 05:10 Nasal Cannula 3 07/02/23 05:00 Nasal Cannula 3 07/02/23 05:00 07/02/23 04:50 Nasal Cannula 3 07/02/23 04:40 Nasal Cannula 3 07/02/23 04:30 Nasal Cannula 3 07/02/23 04:30 07/02/23 04:30 Nasal Cannula 3 07/02/23 04:20 Nasal Cannula 3 07/02/23 04:10 Nasal Cannula 3 07/02/23 04:00 07/02/23 04:00 Nasal Cannula 07/02/23 04:00 94 Nasal Cannula 3 07/02/23 03:55 Nasal Cannula 3 07/02/23 03:40 Nasal Cannula 3 07/02/23 03:30 07/02/23 03:30 Nasal Cannula 3 07/02/23 03:20 Nasal Cannula 3 07/02/23 03:10 Nasal Cannula 3 07/02/23 03:00 Nasal Cannula 3 07/02/23 03:00 Nasal Cannula 3 07/02/23 02:50 Nasal Cannula 3 07/02/23 02:40 Nasal Cannula 3 07/02/23 02:30 Nasal Cannula 3 07/02/23 02:30 07/02/23 02:20 07/02/23 02:10 07/02/23 02:00 07/02/23 02:00 07/02/23 01:50 07/02/23 01:40 Nasal Cannula 3 07/02/23 01:31 07/02/23 01:31 07/02/23 01:30 07/02/23 01:20 07/02/23 01:10 07/02/23 01:07 Nasal Cannula 3 07/02/23 01:07 Nasal Cannula 3 07/02/23 01:07 Nasal Cannula 3 07/02/23 01:00 07/02/23 01:00 07/02/23 00:50 07/02/23 00:40 07/02/23 00:30 Nasal Cannula 3 07/02/23 00:30 07/02/23 00:20 07/02/23 00:10 07/02/23 00:02 07/02/23 00:02 07/02/23 00:00 07/01/23 23:50 07/01/23 23:40 07/01/23 23:31 07/01/23 23:31 07/01/23 23:30 07/01/23 23:25 07/01/23 23:20 07/01/23 23:10 07/01/23 23:00 Nasal Cannula 3 07/01/23 23:00 07/01/23 22:50 3 07/01/23 22:40 Room Air 07/01/23 22:30 07/01/23 22:30 07/01/23 22:20 07/01/23 22:10 07/01/23 22:00 07/01/23 22:00 07/01/23 21:50 07/01/23 21:40 07/01/23 21:10 07/01/23 21:00 07/01/23 20:50 07/01/23 20:40 07/01/23 20:30 07/01/23 20:20 07/01/23 20:10 07/01/23 20:00 07/01/23 20:00 07/01/23 19:50 07/01/23 19:47 07/01/23 19:46 07/01/23 19:41 Nasal Cannula 4 07/01/23 19:40 07/01/23 19:39 Nasal Cannula 07/01/23 19:30 07/01/23 19:30 07/01/23 19:29 Laboratory Results 07/01/23 19:33 07/01/23 19:33 PG Care Time/CCT Total # of Minutes Spent Total Time Spent with Patient: Total time spent is greater than 50% in coordination of care (as documented) at patient's floor/unit and/or counseling patient: Coding Level of Care Code 90790 SUB INP/OBS CARE 2/35MIN Diagnoses COPD exacerbation J44.1 CAD (coronary artery disease) I25.10 Tobacco abuse Z72.0 Depression F32.9
[2023-07-02] MEDS: ALBUT/IPRATROP 3MG/0.5MG NEB 3 ML VIAL NEB SCH (07:45)
[2023-07-02] MEDS: METOPROLOL TARTRATE 25 MG TAB PO SCH (08:35)
[2023-07-02] MEDS: predniSONE 20 MG TAB PO SCH (08:36)
[2023-07-02] MEDS: DOXYCYCLINE HYCLATE 100 MG CAP PO SCH (08:37)
[2023-07-02] MEDS: ASPIRIN 81 MG ECTAB PO SCH (08:38)
[2023-07-02] MEDS ORDERED: methylPREDNISolone 60 MG in SYRINGE 0 ML IV SCH ×2 (09:00→15:00)
[2023-07-02] MEDS: ENOXAPARIN INJ 40 MG/0.4 ML SYR SQ SCH (11:13)
--- NOTE | 2023-07-02 16:56 | Electrocardiogram Report ---
Test Reason : Blood Pressure : / mmHG Vent. Rate : 100 BPM Atrial Rate : 100 BPM P-R Int : 168 ms QRS Dur : 090 ms QT Int : 330 ms P-R-T Axes : 083 089 067 degrees QTc Int : 425 ms Normal sinus rhythm Biatrial enlargement Pulmonary disease pattern Abnormal ECG When compared with ECG of 24-MAY-2023 05:53, Vent. rate has increased BY 42 BPM Confirmed by Memo Arriola ([id number]) on 07/02/2023 4:55:42 PM Referred By: REFERRED SELF Confirmed By:Memo Arriola
--- NOTE | 2023-07-02 20:23 | Billing Data ---
Date of Service July 02, 2023 Coding Level of Care Code 66609 INT INP/OBS CARE
[2023-07-02] MEDS: CITALOPRAM 20 MG TAB PO SCH (20:57)
[2023-07-02] MEDS: MELATONIN 3 MG TAB PO PRN (20:57)
[2023-07-02] MEDS: ROSUVASTATIN CALCIUM 10 MG TAB PO SCH (20:58)
[2023-07-03 07:14] LABS: Basophils # (auto) 0.02 K/uL (0.00-0.20); Basophils % (auto) 0.2 %; Eosinophils # (auto) 0.07 K/uL (0.00-0.50); Eosinophils % (auto) 0.6 %; Hematocrit (blood only) 42.1 % (42.0-52.0); Hemoglobin 13.8 g/dl (14.0-18.0); Immature Granulocytes # (auto) 0.05 K/uL (0.01-0.20); Immature Granulocytes % (auto) 0.5 %; Lymphocytes # (auto) 1.77 K/uL (1.20-3.40); Lymphocytes % (auto) 16.1 %; Mean Corpuscular Hemoglobin 29.4 pg (25.0-34.0); Mean Corpuscular Hgb Conc 32.8 g/dL (32.0-36.0); Mean Corpuscular Volume 89.6 fL (80.0-100.0); Mean Platelet Volume 11.3 fL (9.4-12.4); Monocytes # (auto) 1.01 K/uL (0.11-0.59); Monocytes % (auto) 9.2 %; Neutrophils # (auto) 8.09 K/uL (1.40-6.50); Neutrophils % (auto) 73.4 %; Platelet Count 171 K/uL (130-400); RDW Coefficient of Variation 13.9 % (11.5-14.5); RDW Standard Deviation 45.5 fL (36.4-46.3); White Blood Count 11.01 K/ul (4.8-10.8)
[2023-07-03 07:47] LABS: Albumin Globulin Ratio 1.4 (0.9-2); Albumin Level 3.9 gm/dl (3.4-5.0); BUN Creatinine Ratio 21.3 (10-20); Bilirubin,Total 0.4 mg/dl (0.2-1.0); Calcium 8.7 mg/dl (8.6-10.3); Creatinine Clr Calc Pharmacy 75.6 ml/min; Est GFR (African American) 84.2 ml/min; Est GFR (Non-African American) 72.7 ml/min; Globulin 2.7 gm/dl (2.5-4.0); Magnesium 1.9 mg/dl (1.7-2.4); Potassium 4.2 mmol/L (3.5-5.1); Total Protein 6.6 gm/dl (6.0-8.3)
--- NOTE | 2023-07-03 15:26 | Hospitalist Progress Note ---
Date of Service July 03, 2023 Assessment & Plan (1) COPD exacerbation: Plan: 63 y/o man treated for COVID-19 and COPD exacerbation late April this year admitted with acute exacerbation of COPD Had been unable to fill his control inhaler I prescribed because his insurance wouldn't cover it, currently insurance is in limbo because it recently changed - dexamethasone 6 mg IV, bronchodilators, and azithromycin 500 mg IV given on admission - CTA no PE, patchy RLL infiltrates, no leukocytosis or fever. - resp biofire and COVID negative - procalcitonin x 2 negative, no evidence of bacterial pneumonia Plan: - continue DuoNeb qid, continue albuterol MDI prn, 500 mg po azithro x 2 days, prednisone 40 mg daily - improving on this, continue - benefit from updated spirometry as an outpatient and addition of daily LABA+LAMA combination inhaler. Does not tolerate ICS due to insomnia. Saw Dr. Owusu 08/2021 - schedule pulm follow up apt (2) CAD (coronary artery disease): Plan: Hx coronary artery stent TTE 05/23/23 EF 60-65% no rwma's, no valvular disease - continue metoprolol, asp rosuvastatin - follow up with Dr. Robins is scheduled 07/09 (3) Tobacco abuse: Plan: - over 40 pack years, recently has been able to cut back from 1 pack per day to 1/2 pack per day - declines nicotine patch while inpatient - counseled smoking cessation 07/02 - discussed nicotine replacement, bupropion as options. he prefers to avoid varenicline because of nightmares (4) Depression: Plan: - continue citalopram, Ativan prn Plan covid/flu/pneumovax Diet: Heart Healthy VTE Prophylaxis: Lovenox Code: Full Admission and Anticipated Discharge Date Admission Date: July 01, 2023 Subjective remains dyspneic at rest and with cough but both have improved, no chest pain Physical Exam 2 Physical Exam: PHYSICAL EXAMINATION Last 24h vital signs reviewed, see documentation in flowsheet General: comfortable appearing, no distress HEENT: Normocephalic, atraumatic, pupils round and equal, sclerae anicteric, no conjunctival injection, moist mucus membranes Lungs: mildly increased respiratory effort. air movement improved, exp wheezes throughout all burgos ant/post no crackles Heart: Regular rate and rhythm, no murmurs. No JVD Abdomen: Soft, nontender, nondistended. Bowel sounds present. Extremities: Warm, dry, well-perfused. No extremity edema. Neuro: Alert and oriented x 4, face symmetric, moves 4 extremities well Psych: Normal affect and behavior Results & Data Results & Data Vital Signs (Past 12 Hours) Vital Signs Temp Pulse Pulse Resp BP Pulse Ox O2 Del Method 07/03/23 15:11 84 16 95 Nasal Cannula 07/03/23 11:15 64 14 95 Nasal Cannula 07/03/23 08:12 36.3 C L 63 18 120/76 97 Nasal Cannula 07/03/23 08:03 Nasal Cannula 07/03/23 07:30 83 22 94 Nasal Cannula 07/03/23 07:04 61 07/03/23 04:00 36.7 C 65 18 117/76 96 Nasal Cannula O2 Flow Rate 07/03/23 15:11 2 07/03/23 11:15 2 07/03/23 08:12 2 07/03/23 08:03 2 07/03/23 07:30 2 07/03/23 07:04 07/03/23 04:00 2 Laboratory Results 07/03/23 06:43 07/03/23 06:43 PG Care Time/CCT Total # of Minutes Spent Total Time Spent with Patient: Total time spent is greater than 50% in coordination of care (as documented) at patient's floor/unit and/or counseling patient: Coding Level of Care Code 83229 SUB INP/OBS CARE 2/35MIN Diagnoses COPD exacerbation J44.1 CAD (coronary artery disease) I25.10 Tobacco abuse Z72.0 Depression F32.9
[2023-07-03] MEDS: PNEUMOCOCCAL VACCINE (PCV20) 20-VAL CONJ-DIP CRM/PF 0.5 ML SYR IM ONE (18:37)
[2023-07-03] MEDS: INFLUENZA VIRUS QUADRIVALENT VACCINE (IIV4) 0.5 ML SYR IM ONE (18:37)
[2023-07-03] MEDS: [UNRECOGNIZED DRUG - OTHER] IM ONE (18:37)
[2023-07-03] MEDS: LORazepam 0.5 MG TAB PO PRN (20:40)
[2023-07-04] MEDS: UMECLIDINIUM/VILANTEROL 62.5/25MCG 7 PUFFS/INHALER INH SCH (08:56)
[2023-07-04] MEDS: ALBUT/IPRATROP 3MG/0.5MG NEB 3 ML VIAL NEB PRN (11:32)
--- NOTE | 2023-07-04 15:37 | Discharge Summary ---
Date of Service July 04, 2023 Admission HPI Per Admitting Provider 63 year old male with a past medical history of COPD, tobacco use, depression, anxiety, CAD with angioplasty and stented coronary artery presenting with increased shortness of breath/work of breathing over the past 2 day. Worst last evening; used his albuterol inhaler >12 times. Was recently admitted from 05/23- 05/24 with COVID-19 infection and COPD exacerbation. He is a current everyday smoker, has been able to cut back from pack per day to 1/2 pack per day. Denies chest pain, nausea, vomiting, headache, cough, fever/chills. ED course significant for CXR/CTA without acute process, Resp Biofire negative, mildly hyp oxic requiing 3L NC. Was given 6mg Decadron, Duoneb in the ED. Principal Diagnosis Acute exacerbation of COPD Discharge Exam PHYSICAL EXAMINATION Last 24h vital signs reviewed, see documentation in flowsheet General: comfortable appearing, no distress, walking in room HEENT: Normocephalic, atraumatic, pupils round and equal, sclerae anicteric, no conjunctival injection, moist mucus membranes Lungs: normal respiratory effort. air movement significantly improved, exp wheezes slight throughout all burgos ant/post, no crackles Heart: Regular rate and rhythm, no murmurs. No JVD Abdomen: Soft, nontender, nondistended. Bowel sounds present. Extremities: Warm, dry, well-perfused. No extremity edema. Neuro: Alert and oriented x 4, face symmetric, moves 4 extremities well Psych: Normal affect and behavior Discharge Data Allergies Allergy/AdvReac Type Severity Reaction Status Date / Time Iodinated Contrast Media Allergy Severe HIVES Verified 07/01/23 20:14 atorvastatin AdvReac Intermediate FATIQUE, Verified 07/01/23 20:14 OVER TIRED. Consultations 07/01/23 22:50 ED Decision to Admit Stat Ordered Studies 07/01/23 21:04 CT angio chest PE protocol Stat Hospital Course (1) COPD exacerbation: 63 y/o man treated for COVID-19 and COPD exacerbation late April this year admitted with acute exacerbation of COPD Had been unable to fill his control inhaler I prescribed because his insurance wouldn't cover it, currently insurance is in limbo because it recently changed and does not have new policy yet - dexamethasone 6 mg IV, bronchodilators, and azithromycin 500 mg IV given on admission - CTA no PE, patchy RLL infiltrates, no leukocytosis or fever. - resp biofire and COVID negative - procalcitonin x 2 negative, no evidence of bacterial pneumonia - treated with bronchidilators and prednisone, doxy Improved significantly, hypoxia improved now low 90s on room air -discharged with albuterol, prednisone, doxy - gave goodRx coupons for these -has ph# for [facility] -would benefit from updated spirometry as an outpatient and addition of daily LABA+LAMA combination inhaler once his insurance starts. Does not tolerate ICS due to insomnia. Saw Dr. Owusu 08/2021 - schedule pulm follow up apt (2) CAD (coronary artery disease): Hx coronary artery stent TTE 05/23/23 EF 60-65% no rwma's, no valvular disease - continue metoprolol, asp rosuvastatin - follow up with Dr. Robins is scheduled 07/09 (3) Tobacco abuse: - over 40 pack years, recently has been able to cut back from 1 pack per day to 1/2 pack per day - declines nicotine patch while inpatient - counseled smoking cessation 07/02, 07/03 - discussed nicotine replacement, bupropion as options. he prefers to avoid varenicline because of nightmares (4) Depression: - continue citalopram, Ativan prn Total Time Total Time Spent Total Time Spent (In Minutes): 26 Discharge Plan Discharge Items Patient Disposition: Home - Self-Care Reason For Visit: COPD EXACERBATION Discharge Diagnosis: COPD exacerbation Activity: Resume your previous activity Non-emergency contact: Primary Care Provider, Founder [employer] Chief [employer] Officer and [employer] Call non-emergency contact if: you have any medication questions and your symptoms worsen Follow-up/Referrals: Jose Francisco Owusu MD [Physician] - Mo Rodriges PA-C [Primary Care Provider] - Diet: Regular Addtl Attending Provider Instructions: Use albuterol (ventolin) inhaler 2 puffs as needed for shortness of breath - this is a "rescue" inhaler You also need a long-term "control" inhaler to prevent COPD from flaring up - as soon as you get insurance coverage arranged, please request your primary care doctor or field checker for a prescription - they'll have to check with your new insurance's formulary Return to the ED if you have worsening shortness of breath, fever, chest pain You haven't had a fever here and we did not find pneumonia. I think the sweats you had could be a side effect of the prednisone (steroid) I strongly recommend you quit smoking - nicotine patch or lozenge are available over the counter - use as directed you can talk to your doctor about trying bupropion again as well Pending Studies at Discharge: No Stand-Alone Forms: My [facility], Smoking Cessation Medications and DC Order Prescriptions: New doxycycline hyclate 100 mg Capsule 100 mg PO BID Qty: 7 0RF prednisone 20 mg tablet See Rx Instructions .ROUTE .COMPLEX Qty: 10 0RF Rx Instructions: take 2 tabs in the morning for two days then take 1 tab every morning Continued metoprolol tartrate 25 mg Tablet 12.5 mg PO BID Rx Instructions: ORDERED 12.5 MG BID, PER PT "TAKE AT HS". rosuvastatin 10 mg tablet 10 mg PO HS ibuprofen 200 mg Tablet 400 mg PO QID PRN (Reason: Pain) cyclobenzaprine 10 mg tablet 10 - 20 mg PO HS PRN (Reason: Muscle Spasm) citalopram 20 mg tablet 20 mg PO HS lorazepam 0.5 mg tablet 0.5 mg PO DAILY PRN (Reason: SEVERE ANXIETY) albuterol sulfate [Ventolin HFA] 90 mcg/actuation Hfa Aerosol Inhaler 2 puff inhalation QID PRN (Reason: shortness of breath or wheezing) Qty: 8.5 0RF aspirin 81 mg Tablet,Delayed Release (Dr/Ec) 81 mg PO QAM Qty: 0 0RF Discharge Orders: Discharge Order (Routine); Ordered 07/04/23 Ordered By: Adelita Maldonado Admission Data Admit Date/Time: 07/01/23 23:21 Attending Provider: Adelita Maldonado Admit Provider: Sandi Mujica Primary Care Provider: Mo Rodriges Other Providers: Isaiah Wu Coding Level of Care Code 95901 IN/OBS DISCH 30 MIN/LESS Diagnoses COPD exacerbation J44.1 CAD (coronary artery disease) I25.10 Tobacco abuse Z72.0 Depression F32.9
== END 2023-07-04 16:34 | disposition home or self-care (01) | DRG 190 ==
LOC: ED 15:29 → SUATTDRO 23:21 → EDINP 23:21 → 2N 07-02 16:35 → 3N 07-03 18:17